=== PATIENT | male | born 1945 | race Caucasian/White ===

== ENCOUNTER 2017-03-14 07:51 | Inpatient (IN) ==
[2017-03-14] MEDS ORDERED: Ipratropium/Albuterol Neb 3 ML IH ONE (07:58)
--- NOTE | 2017-03-14 08:03 | Emergency Department Note ---
Disposition Clinical Impression: Hypoxia Pneumonia Qualifiers: Pneumonia type: due to unspecified organism Laterality: right Lung location: upper lobe of lung Qualified Code(s): J18.1 - Lobar pneumonia, unspecified organism Disposition: Admitted As Inpatient Referrals: Yun Novak MD [Primary Care Provider] - Forms: ED Satisfaction Letter Time of Disposition: 09:22 SOB HPI - General Chief Complaint: ED Shortness of Breath/Dyspnea Stated Complaint: pneumonia-ALLIE Time Seen by Provider: 03/14/17 07:58 Source: patient Mode of arrival: ambulatory Limitations: no limitations Nursing Notes Reviewed: Yes Vital Signs Reviewed: Yes - History of Present Illness 72-year-old comes with increasing shortness of breath. Patient was seen at [facility] on Thursday and diagnosed with pneumonia and started on Augmentin. Patient continues to have significant symptoms with increasing shortness of breath. Patient did have heart failure in the past related to a valve problem that was fixed at [facility] according to the patient. Pt Subjective Complaint: shortness of breath Onset (ago): day(s) Context: recent illness Severity: moderate Consistency/Duration: constant Improves with: nothing Worsens with: exertion Known history of: recurrent pneumonia Associated symptoms: Reports: fever, cough, wheezing Treatment prior to arrival: other (Antibiotics) Cough present: Yes Cough Description: Involuntary Cough Frequency: Intermittent - Related Data Home Medications Medication Instructions Recorded Confirmed Levothyroxine Sodium [Synthroid] 137 mcg PO QAM 07/31/15 03/09/17 Lisinopril [Zestril] 2.5 mg PO QAM 07/31/15 03/09/17 Magnesium Oxide [Mag-Ox] 400 mg PO TID 07/31/15 03/09/17 Solifenacin Succinate [Vesicare] 10 mg PO QAM 07/31/15 03/18/16 Tamsulosin [Flomax] 0.4 mg PO DAILY 07/31/15 03/18/16 glipiZIDE [Glucotrol] 2.5 mg PO DAILY 01/28/16 03/18/16 Eletriptan HBr [Relpax] 20 mg PO DAILY 03/18/16 03/09/17 Furosemide [Lasix] 20 mg PO DAILY 03/18/16 03/09/17 Rizatriptan Benzoate [Maxalt] 5 mg PO DAILY 03/18/16 03/09/17 Folmax 1 PO DAILY 03/09/17 Lisinopril [Zestril] 5 mg PO DAILY 03/09/17 03/09/17 Metoprolol Succinate 50 mg PO 03/09/17 Previous Rx's Medication Instructions Recorded Ticagrelor [Brilinta] 90 mg PO BID #60 tablet 03/19/16 Amoxicillin/Clavulanate [Augmentin] 875 mg PO BIDWM #20 tablet 03/09/17 Guaifenesin [Mucinex] 1,200 mg PO BID #14 tab.er.12h 03/09/17 Allergies Allergy/AdvReac Type Severity Reaction Status Date / Time Oxycodone AdvReac Mild Itching Verified 01/28/16 06:45 All systems ED: reviewed and negative except as stated. Constitutional: Denies: fever, chills, weakness, weight change Eyes: Denies: eye pain, eye discharge, vision change ENT ED: Denies: ear pain, throat pain, dental pain, hearing loss, epistaxis, congestion, dysphagia Cardiovascular: Denies: chest pain, palpitations, dyspnea on exertion, edema, syncope Respiratory: Reports: cough, dyspnea, wheezes. Denies: hemoptysis, stridor Gastrointestinal: Denies: abdominal pain, nausea, vomiting, diarrhea, constipation, hematemesis, melena, hematochezia Genitourinary: Denies: urgency, dysuria, frequency, hematuria Musculoskeletal: Denies: back pain, neck pain, arthralgia, myalgia Integumentary: Denies: rash, abrasion, lesions Neurological: Denies: headache, weakness, numbness, paresthesias, confusion, abnormal gait, vertigo Psychiatric: Denies: anxiety, depression, suicidal thoughts, homicidal thoughts , auditory hallucinations, visual hallucinations Endocrine: Denies: fatigue Hematological/Lymphatic: Denies: easy bleeding, easy bruising Allergic/Immunologic: Denies: facial swelling, urticaria Past Medical History - Past Medical History Medical history: Reports: cancer, CHF, diabetes, GERD, hepatitis, hypertension, migraine, renal disease, thyroid disease, valvular heart disease, other Surgical history: Reports: orthopedic, other Psychiatric history: Reports: anxiety, depression - Social History Smoking Status: Never smoker Smokeless Tobacco Status: No Alcohol use: Reports: none Drug use: Reports: none Physical Exam - General Limitations: no limitations General appearance: alert, in no apparent distress - Head Head exam: atraumatic, normocephalic, normal inspection - Eye Eye exam: Present: normal appearance, PERRL, EOMI - ENT ENT exam: normal exam, normal oropharynx, mucous membranes moist - Neck Neck exam: Present: normal inspection, full ROM, trachea midline - Chest Chest inspection: Present: normal inspection, symmetric chest wall rise - Respiratory Respiratory exam: Present: normal lung sounds bilaterally - Cardiovascular Cardiovascular exam: Present: regular rate, normal rhythm, normal heart sounds - Abdominal Exam Abdominal exam: Present: soft, Non-Tender. Absent: tenderness, distention, guarding, rebound, rigidity - Extremities Exam Extremities exam: Present: normal inspection, full ROM. Absent: tenderness, pedal edema - Expanded Lower Extremity Exam Neurovascular/Tendon exam: Absent: motor deficit, sensory deficit, tendon deficit Gait: observed and normal - Back Exam Back exam: Present: normal inspection, full ROM. Absent: tenderness - Neurological Exam Neurological exam: Present: alert, oriented X3 - Psychiatric Psychiatric exam: Present: normal affect, normal mood - Skin Skin exam: Present: warm, dry, intact, normal color Course - Reevaluation(s) Reevaluation #1: 72-year-old who comes in complaining of cough congestion and increasing shortness of breath. Patient was diagnosed with pneumonia several days ago and outside facility started on Augmentin. Patient states he feels no better next week feel somewhat worse. Acquiring of 3 L of oxygen to maintain a sat of 93%. The patient is not on oxygen at home. Time: 09:21 - Consultations Consultation #1: Discussed with Dr. Villasenor, admit. Time: 09:21 Vital Signs Temperature 98.6 F 03/14/17 07:53 Pulse Rate 94 03/14/17 07:53 Respiratory Rate 18 03/14/17 07:53 Blood Pressure 131/80 03/14/17 07:53 O2 Sat by Pulse Oximetry 96 03/14/17 07:53 Temperature 98.6 F 03/14/17 07:53 Pulse Rate 82 03/14/17 09:11 Respiratory Rate 18 03/14/17 09:11 Blood Pressure 116/76 03/14/17 09:11 O2 Sat by Pulse Oximetry 95 03/14/17 09:11 Oxygen Delivery Oxygen Delivery Nasal Cannula Shortness of Breath/Dyspnea - Lab Data Result diagrams: 03/14/17 08:20 03/14/17 08:20 Lab Results 03/14/17 03/14/17 03/14/17 Range/Units 08:20 08:20 08:20 WBC 8.9 (4.3-11.1) K/mcL RBC 4.50 (4.19-5.50) M/mcL Hgb 12.4 L (12.9-16.9) g/dL Hct 38.4 (37.5-50.1) % MCV 85.3 (83.0-100.0) fL MCH 27.6 L (28.0-33.3) pg MCHC 32.3 (31.6-35.5) g/dL RDW 17.2 H (11.5-14.5) % Plt Count 170 D (140-400) K/mcL MPV 10.2 (9.4-12.4) fL Immature Gran % 0.5 (0-4) % Seg Neutrophils % 60.3 % Lymphocytes % 27.4 % Monocytes % 7.7 % Eosinophils % 3.6 % Basophils % 0.5 % Neutrophils # 5.4 (1.6-8.9) K/mcL Lymphocytes # 2.4 (0.6-4.6) K/mcL Monocytes # 0.7 (0.0-1.3) K/mcL Eosinophils # 0.3 (0.0-0.6) K/mcL Basophils # 0.0 (0.0-0.2) K/mcL Sodium 139 (136-145) mEq/L Potassium 4.1 (3.5-4.5) mEq/L Chloride 105 (98-109) mEq/L Carbon Dioxide 23 (19-29) mEq/L BUN 27 H (8-26) mg/dL Creatinine 1.39 H (0.72-1.25) mg/dL Est GFR ( Amer) > 60 (> 60) Est GFR (Non-Af Amer) 50 L (> 60) BUN/Creatinine Ratio 19 (6-26) Glucose 99 (70-99) mg/dL Calculated Osmolality 293 (280-300) Lactic Acid 1.6 (0.5-2.2) mmol/L Calcium 9.8 (8.6-10.8) mg/dL Troponin I (0-0.03) ng/mL B-Natriuretic Peptide (0-100) pg/mL 03/14/17 03/14/17 Range/Units 08:20 08:20 WBC (4.3-11.1) K/mcL RBC (4.19-5.50) M/mcL Hgb (12.9-16.9) g/dL Hct (37.5-50.1) % MCV (83.0-100.0) fL MCH (28.0-33.3) pg MCHC (31.6-35.5) g/dL RDW (11.5-14.5) % Plt Count (140-400) K/mcL MPV (9.4-12.4) fL Immature Gran % (0-4) % Seg Neutrophils % % Lymphocytes % % Monocytes % % Eosinophils % % Basophils % % Neutrophils # (1.6-8.9) K/mcL Lymphocytes # (0.6-4.6) K/mcL Monocytes # (0.0-1.3) K/mcL Eosinophils # (0.0-0.6) K/mcL Basophils # (0.0-0.2) K/mcL Sodium (136-145) mEq/L Potassium (3.5-4.5) mEq/L Chloride (98-109) mEq/L Carbon Dioxide (19-29) mEq/L BUN (8-26) mg/dL Creatinine (0.72-1.25) mg/dL Est GFR ( Amer) (> 60) Est GFR (Non-Af Amer) (> 60) BUN/Creatinine Ratio (6-26) Glucose (70-99) mg/dL Calculated Osmolality (280-300) Lactic Acid (0.5-2.2) mmol/L Calcium (8.6-10.8) mg/dL Troponin I 0.01 (0-0.03) ng/mL B-Natriuretic Peptide 244 H (0-100) pg/mL - EKG Data EKG attestation: Yes I reviewed and interpreted this EKG. EKG shows normal: Reports: sinus rhythm Rate: Reports: normal Rhythm: Reports: NSR Interpretation: Reports: no acute changes
[2017-03-14 08:37] LABS: Basophils % 0.5 %; Eosinophils # 0.3 K/mcL (0.0-0.6); Eosinophils % 3.6 %; Hematocrit 38.4 % (37.5-50.1); Hemoglobin 12.4 g/dL (12.9-16.9); Immature Granulocytes % 0.5 % (0-4); Lymphocytes # 2.4 K/mcL (0.6-4.6); Lymphocytes % 27.4 %; Mean Corpuscular HGB Conc 32.3 g/dL (31.6-35.5); Mean Corpuscular Hemoglobin 27.6 pg (28.0-33.3); Mean Corpuscular Volume 85.3 fL (83.0-100.0); Mean Platelet Volume 10.2 fL (9.4-12.4); Monocytes # 0.7 K/mcL (0.0-1.3); Monocytes % 7.7 %; Neutrophils # 5.4 K/mcL (1.6-8.9); Platelet Count 170 K/mcL (140-400); Red Cell Distribution Width 17.2 % (11.5-14.5); Segmented Neutrophils % 60.3 %
[2017-03-14 08:47] LABS: BUN/Creatinine Ratio 19 (6-26); Blood Urea Nitrogen 27 mg/dL (8-26); Calcium 9.8 mg/dL (8.6-10.8); Carbon Dioxide 23 mEq/L (19-29); Chloride 105 mEq/L (98-109); Glucose 99 mg/dL (70-99); Osmolality,Calculated 293 (280-300); Potassium 4.1 mEq/L (3.5-4.5); Sodium 139 mEq/L (136-145); eGFR For African Americans > 60 (> 60); eGFR For Non-African Americans 50 (> 60)
[2017-03-14] MEDS ORDERED: Levofloxacin 750 MG/150 ML 750 MG/150 ML BAG IVPB ONE (08:50)
[2017-03-14] MEDS ORDERED: Ondansetron ODT 4 MG TAB.RAPDIS SL PRN (11:17)
[2017-03-14] MEDS ORDERED: Naloxone 0.4 MG/ML INJ IVP PRN (11:17)
--- NOTE | 2017-03-14 11:31 | Internal Med History&Physical ---
<Yehuda Villasenor - Last Filed: 03/14/17 17:58> Date of Encounter: 03/14/17 Internal Medicine - H&P: HPI History of present illness: Mr. Montiel is a 72 year old male Internal Medicine - H&P: Meds Levothyroxine Sodium [Synthroid] 137 mcg PO QAM 07/31/15 [History] Magnesium Oxide [Mag-Ox] 400 mg PO TID 07/31/15 [History] Solifenacin Succinate [Vesicare] 10 mg PO QAM 07/31/15 [History] Tamsulosin [Flomax] 0.4 mg PO DAILY 07/31/15 [History] Eletriptan HBr [Relpax] 20 mg PO DAILY PRN 03/18/16 [History] Furosemide [Lasix] 40 mg PO DAILY 03/18/16 [History] Lisinopril [Zestril] 5 mg PO DAILY 03/09/17 [History] Allopurinol [Zyloprim 300 MG] 300 mg PO DAILY 03/14/17 [History] Atorvastatin [Lipitor] 40 mg PO DAILY 03/14/17 [History] Clopidogrel [Plavix] 75 mg PO DAILY 03/14/17 [History] Metoprolol XL (24 HR) Succ [Toprol Xl] 75 mg PO QAM 03/14/17 [History] Omeprazole [PriLOSEC] 40 mg PO DAILY 03/14/17 [History] Allergies Oxycodone Adverse Reaction (Mild, Verified 03/14/17 09:35) Itching rash/ but states he is not sure that is what caused it All Systems PM: A 10-system review of systems was performed and is negative for pertinent findings except as documented above in the HPI. - Constitutional Vitals: Temp Pulse Resp BP Pulse Ox 98.6 F 84 16 109/70 96 03/14/17 15:11 03/14/17 15:11 03/14/17 16:10 03/14/17 15:11 03/14/17 16:10 Internal Med - H&P Results - Labs CBC & Chem 7: 03/14/17 08:20 03/14/17 08:20 - Attending Attestation I examined this patient and my medical decision-making was reviewed with the Advanced Practice Nurse. I agree with the documented findings, disposition and treatment plan as described except to the extent set forth below. We will obtain urine Legionella and pneumococcal antigens. Follow-up urine cultures. We will treat the patient with ceftriaxone and azithromycin. He will need follow-up with PCP and Pneumovax 13. <Katie Niño - Last Filed: 03/14/17 21:53> Date of Encounter: 03/14/17 Time of Encounter: 11:28 Assessment and Plan (1) Pneumonia Current visit: Yes Status: Acute Patient with shortness of breath and productive cough. He was diagnosed with pneumonia on Thursday in [place] and sent home on Augmentin, but symptoms persisted. He is now hypoxic, requiring 3L to maintain saturations. CXR shows stable right upper lobe infiltrate. WBC is normal and he is afebrile. Blood cultures drawn and sent. Sputum culture ordered. Azithromycin and Ceftriaxone IVPB duoneb treatments QID mucinex BID titrate oxygen to maintain saturation > 92% Qualifiers: Pneumonia type: due to unspecified organism Laterality: right Lung location: upper lobe of lung Qualified Code(s): J18.1 - Lobar pneumonia, unspecified organism (2) Hypoxia Current visit: No Status: Acute Patient presents with shortness of breath, diagnosed with pneumonia. He does not wear oxygen at home and is now requiring 3L to maintain saturation. titrate oxygen to maintain O2 saturation > 92% duoneb treatments QID (3) CKD (chronic kidney disease) stage 3, GFR 30-59 ml/min Current visit: No Status: Acute Patient with chronic kidney disease. Today's creatinine of 1.39 is consistent with his baseline. Will check chemistry daily. (4) Sleep apnea Current visit: No Status: Acute Respiratory therapy consulted for CPAP overnight. Qualifiers: Sleep apnea type: unspecified type Qualified Code(s): G47.30 - Sleep apnea , unspecified (5) Hypertension Current visit: No Status: Chronic Blood pressure well controlled since arrival. Continue home doses of lisinopril and metoprolol. Qualifiers: Hypertension type: essential hypertension Qualified Code(s): I10 - Essential (primary) hypertension (6) CAD (coronary artery disease) Current visit: No Status: Acute Patient had stent placed about 1 year ago. Continue plavix, metoprolol, atorvastatin. Qualifiers: Coronary Disease-Associated Artery/Lesion type: [place] artery [place] vs. transplanted heart: [place] heart Associated angina: angina presence unspecified Qualified Code(s): I25.10 - Atherosclerotic heart disease of [place] coronary artery without angina pectoris (7) CHF (congestive heart failure) Current visit: Yes Status: Chronic Patient with history of CHF. He is euvolemic today. Continue home dose of lasix. Qualifiers: Congestive heart failure type: diastolic Congestive heart failure chronicity: chronic Qualified Code(s): I50.32 - Chronic diastolic (congestive ) heart failure (8) DVT prophylaxis Current visit: No Status: Acute anti-embolic stockings heparin 5000u SQ daily Internal Medicine - H&P: HPI Chief complaint: shortness of breath Admitted From: Emergency Dept Plans for Post Hospital Care: Home History of present illness: Mr. Montiel is a 72 year old male with hypertension, chronic kidney disease, coronary artery disease status post stent placement, congestive heart failure, sleep apnea, borderline diabetes who presents to the emergency department today with complaints of shortness of breath. Patient noted productive cough and shortness of breath which began last . He has had chills, sweats, body aches, pain on the right side of his chest with coughing and poor appetite developing since that time. Patient presented to [place] on Thursday was diagnosed with pneumonia and given a prescription for Augmentin. Patient reports he continues to feel short of breath, has not felt any better, and shortness of breath is getting worse. Patient is requiring 3 L of oxygen to maintain saturation above 92%, he does not normally wear oxygen at home. Evaluation in the emergency department included a chest x-ray which showed stable right upper lobe infiltrate. White blood cell count was normal at 8.9. Creatinine of 1.39 was consistent with his baseline and chronic kidney disease. BNP was elevated at 244, however lower than previous results. Troponin was normal at 0.01. On exam, patient alert and oriented, in no acute distress. Heart had regular rate and rhythm. Lungs with right upper chest rales. Patient was mildly diaphoretic. Peripheral pulses intact, no peripheral edema. Past Med Surg Social Fam HX - Past Medical History Medical history: cancer (skin), CHF, diabetes, GERD, hepatitis, hypertension, migraine, renal disease, thyroid disease, valvular heart disease, other Psychiatric history: anxiety, depression - Past Surgical History Surgical History: angioplasty/stent, orthopedic, other, other (mitral valve repair) - Social History Smoking Status: Never smoker Smokeless Tobacco Status: No Alcohol use: none Drug use: none - Family History Mother Adopted: No Family Member Ethnicity: Non- Living Status: Age at : 75 Cause of : DC Hx Family Cardiac Disorders: Yes Hx Family Respiratory Disorders: No Hx Family Cancer: No Hx Family GI Disorders: No Hx Family Endocrine Disorder: No Hx Family Neuromuscular Disorders: No Hx Family Neurologic Disorders: No Hx Family HEENT Disorders: No Hx Family Autoimmune Disorders: No Father Living Status: Hx Family Cancer: Yes All Systems PM: A 10-system review of systems was performed and is negative for pertinent findings except as documented above in the HPI. - Constitutional Constitutional: anorexia, chills, fever(s), no night sweats - EENT Eyes: no change in vision, no discharge, no pain, no photophobia Ears: no ear discharge, no ear pain, no tinnitus Nose, mouth and throat: no dysphagia, no nasal discharge, no neck pain, no sore throat - Cardiovascular Cardiovascular ROS IM: diaphoresis, dyspnea, dyspnea on exertion, lightheadedness, no chest pain, no palpitations, no syncope - Respiratory Respiratory: cough, dyspnea, dyspnea on exertion, excessive phlegm production, pain with cough, no wheezing - Gastrointestinal Gastrointestinal: no abdominal pain, no diarrhea, no hematemesis, no hematochezia, no melena, no nausea, no vomiting - Musculoskeletal Musculoskeletal ROS IM: no numbness, no tingling - Integumentary Integumentary IM: no rash, no unusual bruising - Neurological Neurological ROS: no confusion, no convulsions, no focal weakness, no numbness, no tingling, no tremor(s) - Hematologic/Lymphatic Hematologic/Lymphatic: no easy bruising - Constitutional Vitals: Temp Pulse Resp BP Pulse Ox 98.6 F 82 18 125/63 96 03/14/17 07:53 03/14/17 10:23 03/14/17 10:23 03/14/17 10:23 03/14/17 10:23 General appearance: Present: A&O X 3, pleasant, no acute distress - Head Head exam: Present: atraumatic, normocephalic - Eye Eye exam: Present: PERRL, conjuntiva pink, sclera anicteric Pupils: Present: PERRL - Neck Neck exam general surgery: Present: supple, trachea midline. Absent: lymphadenopathy - Respiratory Respiratory exam: Present: rales (right upper chest). Absent: accessory muscle use, rhonchi, wheezes - Cardiovascular Cardiovascular exam: Present: RRR, +S1, +S2. Absent: diastolic murmur, gallop, rubs, systolic murmur - GI/Abdominal GI/Abdominal exam: Present: normal bowel sounds, soft, no peritoneal signs. Absent: distended, tenderness - Extremities Exam Extremities exam: Present: warm, radial pulses palpable and symetrical. Absent : calf tenderness, cyanotic, pedal edema - Neurological Exam Neurological exam: Present: CN II-XII intact, oriented X3, no focal deficits. Absent: facial droop, speech deficit - Skin Skin exam: Present: diaphoretic, intact Internal Med - H&P Results - Labs CBC & Chem 7: 03/14/17 08:20 03/14/17 08:20 Labs: All Lab Results (24 Hours) 03/14/17 03/14/17 03/14/17 Range/Units 08:20 08:20 08:20 WBC 8.9 (4.3-11.1) K/mcL RBC 4.50 (4.19-5.50) M/mcL Hgb 12.4 L (12.9-16.9) g/dL Hct 38.4 (37.5-50.1) % MCV 85.3 (83.0-100.0) fL MCH 27.6 L (28.0-33.3) pg MCHC 32.3 (31.6-35.5) g/dL RDW 17.2 H (11.5-14.5) % Plt Count 170 D (140-400) K/mcL MPV 10.2 (9.4-12.4) fL Immature Gran % 0.5 (0-4) % Seg Neutrophils % 60.3 % Lymphocytes % 27.4 % Monocytes % 7.7 % Eosinophils % 3.6 % Basophils % 0.5 % Neutrophils # 5.4 (1.6-8.9) K/mcL Lymphocytes # 2.4 (0.6-4.6) K/mcL Monocytes # 0.7 (0.0-1.3) K/mcL Eosinophils # 0.3 (0.0-0.6) K/mcL Basophils # 0.0 (0.0-0.2) K/mcL Sodium 139 (136-145) mEq/L Potassium 4.1 (3.5-4.5) mEq/L Chloride 105 (98-109) mEq/L Carbon Dioxide 23 (19-29) mEq/L BUN 27 H (8-26) mg/dL Creatinine 1.39 H (0.72-1.25) mg/dL Est GFR ( Amer) > 60 (> 60) Est GFR (Non-Af Amer) 50 L (> 60) BUN/Creatinine Ratio 19 (6-26) Glucose 99 (70-99) mg/dL Calculated Osmolality 293 (280-300) Lactic Acid 1.6 (0.5-2.2) mmol/L Calcium 9.8 (8.6-10.8) mg/dL Troponin I (0-0.03) ng/mL B-Natriuretic Peptide (0-100) pg/mL 03/14/17 03/14/17 Range/Units 08:20 08:20 WBC (4.3-11.1) K/mcL RBC (4.19-5.50) M/mcL Hgb (12.9-16.9) g/dL Hct (37.5-50.1) % MCV (83.0-100.0) fL MCH (28.0-33.3) pg MCHC (31.6-35.5) g/dL RDW (11.5-14.5) % Plt Count (140-400) K/mcL MPV (9.4-12.4) fL Immature Gran % (0-4) % Seg Neutrophils % % Lymphocytes % % Monocytes % % Eosinophils % % Basophils % % Neutrophils # (1.6-8.9) K/mcL Lymphocytes # (0.6-4.6) K/mcL Monocytes # (0.0-1.3) K/mcL Eosinophils # (0.0-0.6) K/mcL Basophils # (0.0-0.2) K/mcL Sodium (136-145) mEq/L Potassium (3.5-4.5) mEq/L Chloride (98-109) mEq/L Carbon Dioxide (19-29) mEq/L BUN (8-26) mg/dL Creatinine (0.72-1.25) mg/dL Est GFR ( Amer) (> 60) Est GFR (Non-Af Amer) (> 60) BUN/Creatinine Ratio (6-26) Glucose (70-99) mg/dL Calculated Osmolality (280-300) Lactic Acid (0.5-2.2) mmol/L Calcium (8.6-10.8) mg/dL Troponin I 0.01 (0-0.03) ng/mL B-Natriuretic Peptide 244 H (0-100) pg/mL - Diagnostic Studies Chest x-ray Additional comments: Chest X-Ray 03/14/17 07:58 IMPRESSION: Stable chest. No interval change in right upper lobe infiltrate. D/ / Darien Mistry MD / Darien Mistry MD Interpreting Provider: Darien Mistry MD
[2017-03-14] MEDS: Magnesium Oxide 400 MG TABLET PO SCH ×2 (14:03→20:41)
[2017-03-14] MEDS: Acetaminophen 325 MG TABLET PO PRN ×2 (14:03→20:40)
[2017-03-14] MEDS: *HR* Heparin 5,000 UNIT/ML VIAL SQ SCH (15:03)
[2017-03-14] MEDS: Azithromycin 500 MG in D5% in Water 250 ML IVPB SCH (15:03)
[2017-03-14] MEDS: Ipratropium/Albuterol Neb 3 ML IH SCH ×2 (16:08→23:25)
[2017-03-15 03:37] LABS: Basophils % 0.4 %; Eosinophils # 0.2 K/mcL (0.0-0.6); Eosinophils % 2.9 %; Hematocrit 37.5 % (37.5-50.1); Immature Granulocytes % 0.8 % (0-4); Lymphocytes # 2.9 K/mcL (0.6-4.6); Lymphocytes % 34.9 %; Mean Corpuscular Hemoglobin 27.6 pg (28.0-33.3); Mean Corpuscular Volume 86.4 fL (83.0-100.0); Mean Platelet Volume 10.3 fL (9.4-12.4); Monocytes # 0.8 K/mcL (0.0-1.3); Monocytes % 9.4 %; Neutrophils # 4.3 K/mcL (1.6-8.9); Platelet Count 180 K/mcL (140-400); Red Blood Count 4.34 M/mcL (4.19-5.50); Red Cell Distribution Width 17.2 % (11.5-14.5); Segmented Neutrophils % 51.6 %
[2017-03-15 03:55] LABS: Calcium 9.9 mg/dL (8.6-10.8); Potassium 4.5 mEq/L (3.5-4.5)
[2017-03-15] MEDS: Ipratropium/Albuterol Neb 3 ML IH SCH ×4 (04:19→22:07)
[2017-03-15] MEDS: *HR* Heparin 5,000 UNIT/ML VIAL SQ SCH ×3 (05:21→15:43)
[2017-03-15] MEDS: Metoprolol XL (24 HR) Succ 50 MG TAB.ER.24H PO SCH (08:02)
[2017-03-15] MEDS: Furosemide 40 MG TABLET PO SCH (08:03)
[2017-03-15] MEDS: Magnesium Oxide 400 MG TABLET PO SCH ×3 (08:03→20:51)
[2017-03-15] MEDS ORDERED: Levofloxacin 750 MG/150 ML 750 MG/150 ML BAG IVPB SCH (09:00)
--- NOTE | 2017-03-15 09:22 | Internal Med Progress Note ---
Date of Encounter: 03/15/17 Time of Encounter: 09:20 - Assessment and plan (1) Acute respiratory failure with hypoxia Current Visit: Yes Status: Acute Assessment and plan: Improving with O2 by NC, continue same (2) Pneumonia Current Visit: Yes Status: Acute Assessment and plan: failed out-patient therapy Contiune Ceftriaxone IV and Azithromycin-day 2 Sputum culture has been orderd, will follow Follow urine Legionella and Step Antigen Qualifiers: Pneumonia type: due to unspecified organism Laterality: right Lung location: upper lobe of lung Qualified Code(s): J18.1 - Lobar pneumonia, unspecified organism (3) CHF (congestive heart failure) Current Visit: Yes Status: Chronic Assessment and plan: Euvolemic on exam, continue home meds Qualifiers: Congestive heart failure type: diastolic Congestive heart failure chronicity: chronic Qualified Code(s): I50.32 - Chronic diastolic (congestive ) heart failure (4) CKD (chronic kidney disease) stage 3, GFR 30-59 ml/min Current Visit: Yes Status: Chronic Assessment and plan: CR and GFR stable and at baseline (5) Sleep apnea Current Visit: Yes Status: Chronic Assessment and plan: Ensure CPAP at night Qualifiers: Sleep apnea type: unspecified type Qualified Code(s): G47.30 - Sleep apnea , unspecified (6) Hypertension Current Visit: Yes Status: Chronic Assessment and plan: Controlled on current medications, continue same Qualifiers: Hypertension type: essential hypertension Qualified Code(s): I10 - Essential (primary) hypertension (7) Hypothyroid Current Visit: Yes Status: Chronic Assessment and plan: Continue home dose of levoiothyroxine Clinically euthyroid Qualifiers: Hypothyroidism type: unspecified Qualified Code(s): E03.9 - Hypothyroidism , unspecified (8) CAD (coronary artery disease) Current Visit: Yes Status: Chronic Assessment and plan: s/p [facility] with stent 12/2015, continue home meds Qualifiers: Coronary Disease-Associated Artery/Lesion type: [place] artery [place] vs. transplanted heart: [place] heart Associated angina: angina presence unspecified Qualified Code(s): I25.10 - Atherosclerotic heart disease of [place] coronary artery without angina pectoris - Subjective Interval history: 72 M with PMH of CAD s/p DIAMOND 2015, CHF, Severe MVR s/p clipping 2016, Pulm HTN, CKD, GREG Admitted and being managed for Pneumonia, Acute hypoxic respiratory failure Seen and evaluated at bedside, sitting up in bed, no new complains - Constitutional Vitals: Temp Pulse Resp BP Pulse Ox 98.7 F 86 16 128/75 94 03/15/17 07:08 03/15/17 07:08 03/15/17 07:08 03/15/17 07:08 03/15/17 07:08 General appearance: Present: A&O X 3, pleasant, no acute distress - Head Head exam: Present: atraumatic, normocephalic - Eye Eye exam: Present: PERRL, conjuntiva pink, sclera anicteric Pupils: Present: PERRL - Neck Neck exam general surgery: Present: supple, trachea midline. Absent: lymphadenopathy - Respiratory Respiratory exam: Present: CTAB. Absent: accessory muscle use, rales, rhonchi, wheezes - Cardiovascular Cardiovascular exam: Present: RRR, +S1, +S2. Absent: diastolic murmur, gallop, rubs, systolic murmur - GI/Abdominal GI/Abdominal exam: Present: normal bowel sounds, soft, no peritoneal signs. Absent: distended, tenderness - Extremities Exam Extremities exam: Present: warm, radial pulses palpable and symetrical. Absent : calf tenderness, cyanotic, pedal edema - Neurological Exam Neurological exam: Present: alert, CN II-XII intact, oriented X3, no focal deficits. Absent: pronater drift, facial droop, speech deficit - Skin Skin exam: Present: dry, intact Internal Medicine: Result - Labs CBC & Chem 7: 03/15/17 03:01 03/15/17 03:01 Labs: Short CBC 03/15/17 Range/Units 03:01 WBC 8.3 (4.3-11.1) K/mcL Hgb 12.0 L (12.9-16.9) g/dL Hct 37.5 (37.5-50.1) % Plt Count 180 (140-400) K/mcL Neutrophils # 4.3 (1.6-8.9) K/mcL BMP 03/15/17 03:01 Sodium 140 Potassium 4.5 Chloride 104 Carbon Dioxide 25 BUN 27 H Creatinine 1.46 H Glucose 97 Calcium 9.9 - VTE Documentation of Mechanical Device: Graduated compression elastic hosiery Consult Discharge Plan - Plan Referrals: Yun Novak MD [Primary Care Provider] -
[2017-03-15] MEDS: Acetaminophen 325 MG TABLET PO PRN ×2 (11:57→20:55)
[2017-03-15] MEDS: Azithromycin 500 MG in D5% in Water 250 ML IVPB SCH (12:34)
[2017-03-15 15:00] LABS: Bilirubin,Urine Negative (Negative); Blood,Urine Negative (Negative); Clarity,Urine Clear (Clear); Color,Urine Yellow (Yellow); Glucose,Urine (UA) Normal (Normal); Ketones,Urine Negative (Negative); Leukocyte Esterase,Urine Negative (Negative); Nitrite,Urine Negative (Negative); PH,Urine 5.5 pH Units (5.0-8.0); Protein,Urine Negative (Neg-Trace); Specific Gravity,Urine 1.018 (1.010-1.025); Urobilinogen,Urine Normal (Normal)
[2017-03-16] MEDS: *HR* Heparin 5,000 UNIT/ML VIAL SQ SCH ×3 (02:06→15:57)
[2017-03-16] MEDS: Ipratropium/Albuterol Neb 3 ML IH SCH ×4 (03:54→22:34)
[2017-03-16 06:11] LABS: BUN/Creatinine Ratio 22 (6-26); Blood Urea Nitrogen 29 mg/dL (8-26); Carbon Dioxide 22 mEq/L (19-29); Chloride 105 mEq/L (98-109); Glucose 109 mg/dL (70-99); Osmolality,Calculated 294 (280-300); Potassium 4.4 mEq/L (3.5-4.5); Sodium 139 mEq/L (136-145); eGFR For African Americans > 60 (> 60); eGFR For Non-African Americans 52 (> 60)
[2017-03-16 07:24] LABS: Basophils % 0.4 %; Eosinophils # 0.2 K/mcL (0.0-0.6); Eosinophils % 2.8 %; Hemoglobin 11.6 g/dL (12.9-16.9); Immature Granulocytes % 0.6 % (0-4); Immature Platelets 2.1 % (1.1-6.1); Lymphocytes # 2.7 K/mcL (0.6-4.6); Lymphocytes % 34.9 %; Mean Corpuscular HGB Conc 32.2 g/dL (31.6-35.5); Mean Corpuscular Hemoglobin 27.6 pg (28.0-33.3); Mean Corpuscular Volume 85.5 fL (83.0-100.0); Mean Platelet Volume 10.6 fL (9.4-12.4); Monocytes # 0.6 K/mcL (0.0-1.3); Monocytes % 7.1 %; Neutrophils # 4.3 K/mcL (1.6-8.9); Platelet Count 197 K/mcL (140-400); Red Blood Count 4.21 M/mcL (4.19-5.50); Red Cell Distribution Width 17.3 % (11.5-14.5); Segmented Neutrophils % 54.2 %
[2017-03-16] MEDS: Metoprolol XL (24 HR) Succ 50 MG TAB.ER.24H PO SCH (08:07)
[2017-03-16] MEDS: Magnesium Oxide 400 MG TABLET PO SCH ×3 (08:07→20:41)
[2017-03-16] MEDS: Furosemide 40 MG TABLET PO SCH (08:07)
--- NOTE | 2017-03-16 10:46 | Discharge Summary ---
Date of Encounter: 03/16/17 Time of Encounter: 10:46 - Discharge Diagnosis (1) Acute respiratory failure with hypoxia Status: Acute (2) Pneumonia Status: Acute Qualifiers: Pneumonia type: due to unspecified organism Laterality: right Lung location: upper lobe of lung Qualified Code(s): J18.1 - Lobar pneumonia, unspecified organism (3) CHF (congestive heart failure) Status: Chronic Qualifiers: Congestive heart failure type: diastolic Congestive heart failure chronicity: chronic Qualified Code(s): I50.32 - Chronic diastolic (congestive ) heart failure (4) CKD (chronic kidney disease) stage 3, GFR 30-59 ml/min Status: Chronic (5) Sleep apnea Status: Chronic Qualifiers: Sleep apnea type: unspecified type Qualified Code(s): G47.30 - Sleep apnea , unspecified (6) Hypertension Status: Chronic Qualifiers: Hypertension type: essential hypertension Qualified Code(s): I10 - Essential (primary) hypertension (7) Hypothyroid Status: Chronic Qualifiers: Hypothyroidism type: unspecified Qualified Code(s): E03.9 - Hypothyroidism , unspecified (8) CAD (coronary artery disease) Status: Chronic Qualifiers: Coronary Disease-Associated Artery/Lesion type: [place] artery [place] vs. transplanted heart: [place] heart Associated angina: angina presence unspecified Qualified Code(s): I25.10 - Atherosclerotic heart disease of [place] coronary artery without angina pectoris - Discharge Medications Home Medications: Levothyroxine Sodium [Synthroid] 137 mcg PO QAM 07/31/15 [History] Magnesium Oxide [Mag-Ox] 400 mg PO TID 07/31/15 [History] Solifenacin Succinate [Vesicare] 10 mg PO QAM 07/31/15 [History] Tamsulosin [Flomax] 0.4 mg PO DAILY 07/31/15 [History] Eletriptan HBr [Relpax] 20 mg PO DAILY PRN 03/18/16 [History] Furosemide [Lasix] 40 mg PO DAILY 03/18/16 [History] Lisinopril [Zestril] 5 mg PO DAILY 03/09/17 [History] Allopurinol [Zyloprim 300 MG] 300 mg PO DAILY 03/14/17 [History] Atorvastatin [Lipitor] 40 mg PO DAILY 03/14/17 [History] Clopidogrel [Plavix] 75 mg PO DAILY 03/14/17 [History] Metoprolol XL (24 HR) Succ [Toprol Xl] 75 mg PO QAM 03/14/17 [History] Omeprazole [PriLOSEC] 40 mg PO DAILY 03/14/17 [History] Allergies/Adverse Reactions: Allergies Oxycodone Adverse Reaction (Mild, Verified 03/14/17 09:35) Itching rash/ but states he is not sure that is what caused it Date of admission: 03/14/17 11:17 Primary care physician: Yun Novak, Consults: 03/14/17 13:51 Consult to Nutrition [CONS] Routine Comment: Consulting Provider: NUTRITION Reason for Dietary Consult: Other Other:: weight loss - Discharge Instructions Follow Up With: Yun Novak MD [Primary Care Provider] - 03/23/17 9:20 am (Please follow up as schedule...) Hospital course: Mr. Montiel is a 72 year old male - Time Spent with Patient Total time spent providing and/or coordinating discharge services: - Constitutional Vitals: Temp Pulse Resp BP Pulse Ox 98.5 F 87 16 113/71 97 03/16/17 06:49 03/16/17 06:49 03/16/17 06:49 03/16/17 06:49 03/16/17 06:49 General appearance: Present: A&O X 3, pleasant, no acute distress - Head Head exam: Present: atraumatic, normocephalic - Eye Eye exam: Present: PERRL, conjuntiva pink, sclera anicteric Pupils: Present: PERRL - Neck Neck exam general surgery: Present: supple, trachea midline. Absent: lymphadenopathy - Respiratory Respiratory exam: Present: CTAB. Absent: accessory muscle use, rales, rhonchi, wheezes - Cardiovascular Cardiovascular exam: Present: RRR, +S1, +S2. Absent: diastolic murmur, gallop, rubs, systolic murmur - GI/Abdominal GI/Abdominal exam: Present: normal bowel sounds, soft, no peritoneal signs. Absent: distended, tenderness - Extremities Exam Extremities exam: Present: warm, radial pulses palpable and symetrical. Absent : calf tenderness, cyanotic, pedal edema - Neurological Exam Neurological exam: Present: alert, CN II-XII intact, oriented X3, no focal deficits. Absent: pronater drift, facial droop, speech deficit - Skin Skin exam: Present: dry, intact - VTE Documentation of Mechanical Device: Graduated compression elastic hosiery
--- NOTE | 2017-03-16 11:30 | Internal Med Progress Note ---
Date of Encounter: 03/16/17 Time of Encounter: 11:28 - Assessment and plan (1) Acute respiratory failure with hypoxia Current Visit: Yes Status: Acute Assessment and plan: Improving with O2 by NC, continue same (2) Pneumonia Current Visit: Yes Status: Acute Assessment and plan: failed out-patient therapy Contiune Ceftriaxone IV and Azithromycin-day 3 Sputum culture no growth Blood culture prelim negative Patient feels he is not at his baseline, continue IV antibiotics Qualifiers: Pneumonia type: due to unspecified organism Laterality: right Lung location: upper lobe of lung Qualified Code(s): J18.1 - Lobar pneumonia, unspecified organism (3) CHF (congestive heart failure) Current Visit: Yes Status: Chronic Assessment and plan: Euvolemic on exam, continue home meds Qualifiers: Congestive heart failure type: diastolic Congestive heart failure chronicity: chronic Qualified Code(s): I50.32 - Chronic diastolic (congestive ) heart failure (4) CKD (chronic kidney disease) stage 3, GFR 30-59 ml/min Current Visit: Yes Status: Chronic Assessment and plan: CR and GFR stable and at baseline (5) Sleep apnea Current Visit: Yes Status: Chronic Assessment and plan: Ensure CPAP at night Qualifiers: Sleep apnea type: unspecified type Qualified Code(s): G47.30 - Sleep apnea , unspecified (6) Hypertension Current Visit: Yes Status: Chronic Assessment and plan: Controlled on current medications, continue same Qualifiers: Hypertension type: essential hypertension Qualified Code(s): I10 - Essential (primary) hypertension (7) Hypothyroid Current Visit: Yes Status: Chronic Assessment and plan: Continue home dose of levoiothyroxine Clinically euthyroid Qualifiers: Hypothyroidism type: unspecified Qualified Code(s): E03.9 - Hypothyroidism , unspecified (8) CAD (coronary artery disease) Current Visit: Yes Status: Chronic Assessment and plan: s/p [facility] with stent 12/2015, continue home meds Qualifiers: Coronary Disease-Associated Artery/Lesion type: [place] artery [place] vs. transplanted heart: [place] heart Associated angina: angina presence unspecified Qualified Code(s): I25.10 - Atherosclerotic heart disease of [place] coronary artery without angina pectoris - Subjective Interval history: 72 M with PMH of CAD s/p DIAMOND 2015, CHF, Severe MVR s/p clipping 2015, Pulm HTN, CKD, GREG Admitted and being managed for Pneumonia, Acute hypoxic respiratory failure Seen and evaluated at bedside, sitting up in bed, no new complains He is worried his O2 sat has been dropping with exertion when he takes off the oxygen Reassured about need for qualification for O2 Sputum culture is negative Blood culture is preliminary negative he is in no form of respiratory distress at rest He needs home O2 qualification prior to discharge - Constitutional Vitals: Temp Pulse Resp BP Pulse Ox 98.5 F 87 16 113/71 97 03/16/17 06:49 03/16/17 06:49 03/16/17 06:49 03/16/17 06:49 03/16/17 06:49 General appearance: Present: A&O X 3, pleasant, no acute distress - Head Head exam: Present: atraumatic, normocephalic - Eye Eye exam: Present: PERRL, conjuntiva pink, sclera anicteric Pupils: Present: PERRL - Neck Neck exam general surgery: Present: supple, trachea midline. Absent: lymphadenopathy - Respiratory Respiratory exam: Present: CTAB. Absent: accessory muscle use, rales, rhonchi, wheezes - Cardiovascular Cardiovascular exam: Present: RRR, +S1, +S2. Absent: diastolic murmur, gallop, rubs, systolic murmur - GI/Abdominal GI/Abdominal exam: Present: normal bowel sounds, soft, no peritoneal signs. Absent: distended, tenderness - Extremities Exam Extremities exam: Present: warm, radial pulses palpable and symetrical. Absent : calf tenderness, cyanotic, pedal edema - Neurological Exam Neurological exam: Present: alert, CN II-XII intact, oriented X3, no focal deficits. Absent: pronater drift, facial droop, speech deficit - Skin Skin exam: Present: dry, intact Internal Medicine: Result - Labs CBC & Chem 7: 03/16/17 06:47 03/16/17 05:24 Labs: Short CBC 03/16/17 Range/Units 06:47 WBC 7.9 (4.3-11.1) K/mcL Hgb 11.6 L (12.9-16.9) g/dL Hct 36.0 L (37.5-50.1) % Plt Count 197 (140-400) K/mcL Neutrophils # 4.3 (1.6-8.9) K/mcL BMP 03/16/17 05:24 Sodium 139 Potassium 4.4 Chloride 105 Carbon Dioxide 22 BUN 29 H Creatinine 1.34 H Glucose 109 H Calcium 10.0 Urine 03/15/17 Range/Units 14:30 Urine Color Yellow (Yellow) Urine Clarity Clear (Clear) Urine pH 5.5 (5.0-8.0) pH Units Ur Specific [place] 1.018 (1.010-1.025) Urine Protein Negative (Neg-Trace) mg/dL Urine Glucose (UA) Normal (Normal) mg/dL - VTE Documentation of Mechanical Device: Graduated compression elastic hosiery Consult Discharge Plan - Plan Referrals: Yun Novak MD [Primary Care Provider] - 03/23/17 9:20 am (Please follow up as schedule...) Prescriptions: Azithromycin [Zithromax Tri-Edgar] 500 mg PO DAILY #2 tablet Cefdinir [Omnicef] 300 mg PO BID #8 capsule
[2017-03-16] MEDS: Acetaminophen 325 MG TABLET PO PRN (13:03)
[2017-03-16] MEDS: Azithromycin 500 MG in D5% in Water 250 ML IVPB SCH (13:04)
--- NOTE | 2017-03-16 16:36 | Electrocardiograph Report ---
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
[2017-03-17] MEDS: *HR* Heparin 5,000 UNIT/ML VIAL SQ SCH ×3 (00:46→15:00)
[2017-03-17] MEDS: Ipratropium/Albuterol Neb 3 ML IH SCH ×4 (05:00→22:29)
[2017-03-17] MEDS: Magnesium Oxide 400 MG TABLET PO SCH ×3 (08:13→21:58)
[2017-03-17] MEDS: Furosemide 40 MG TABLET PO SCH (08:13)
[2017-03-17] MEDS: Metoprolol XL (24 HR) Succ 50 MG TAB.ER.24H PO SCH (08:14)
[2017-03-17] MEDS: Azithromycin 250 MG TABLET PO SCH (12:52)
--- NOTE | 2017-03-17 17:02 | Internal Med Progress Note ---
Date of Encounter: 03/17/17 Time of Encounter: 10:00 - Assessment and plan (1) CHF (congestive heart failure) Current Visit: Yes Status: Chronic Assessment and plan: Euvolemic on exam, continue home meds Qualifiers: Congestive heart failure type: diastolic Congestive heart failure chronicity: chronic Qualified Code(s): I50.32 - Chronic diastolic (congestive ) heart failure (2) CKD (chronic kidney disease) stage 3, GFR 30-59 ml/min Current Visit: Yes Status: Chronic Assessment and plan: CR and GFR stable and at baseline (3) Sleep apnea Current Visit: Yes Status: Chronic Assessment and plan: Ensure CPAP at night Qualifiers: Sleep apnea type: unspecified type Qualified Code(s): G47.30 - Sleep apnea , unspecified (4) Hypertension Current Visit: Yes Status: Chronic Assessment and plan: Controlled on current medications, continue same Qualifiers: Hypertension type: essential hypertension Qualified Code(s): I10 - Essential (primary) hypertension (5) DVT prophylaxis Current Visit: No Status: Acute Assessment and plan: Heparin subcutaneously (6) Hypothyroid Current Visit: Yes Status: Chronic Assessment and plan: Continue home dose of levoiothyroxine Clinically euthyroid Qualifiers: Hypothyroidism type: unspecified Qualified Code(s): E03.9 - Hypothyroidism , unspecified (7) Pneumonia Current Visit: Yes Status: Acute Assessment and plan: Clinically improved. Continue IV azithromycin and Rocephin. Continue supportive treatment. Qualifiers: Pneumonia type: due to unspecified organism Laterality: right Lung location: upper lobe of lung Qualified Code(s): J18.1 - Lobar pneumonia, unspecified organism (8) CAD (coronary artery disease) Current Visit: Yes Status: Chronic Assessment and plan: s/p [facility] with stent 12/2015, continue home meds Qualifiers: Coronary Disease-Associated Artery/Lesion type: [place] artery [place] vs. transplanted heart: [place] heart Associated angina: angina presence unspecified Qualified Code(s): I25.10 - Atherosclerotic heart disease of [place] coronary artery without angina pectoris - Time Spent With Patient 25 - 35 minutes - Subjective Interval history: Patient is a 72-year-old male admitted for community-acquired pneumonia. His past medical history is significant for CHF, diabetes, hypertension, CKD. Patient was seen and examined. He is still weak, mild cough. Denies shortness of breath or chest pain. Vitals are stable. Need oxygen to maintain oxygen saturation. Will continue IV antibiotic. Plan to switch antibiotic to by mouth and discharge patient home tomorrow - Constitutional Vitals: Temp Pulse Resp BP Pulse Ox 98.4 F 82 15 96/61 92 03/17/17 15:10 03/17/17 15:10 03/17/17 15:10 03/17/17 15:10 03/17/17 15:10 General appearance: Present: A&O X 3, pleasant, no acute distress - Head Head exam: Present: atraumatic, normocephalic - Eye Eye exam: Present: PERRL, conjuntiva pink, sclera anicteric Pupils: Present: PERRL - Neck Neck exam general surgery: Present: supple, trachea midline. Absent: lymphadenopathy - Respiratory Respiratory exam: Present: CTAB. Absent: accessory muscle use, rales, rhonchi, wheezes - Cardiovascular Cardiovascular exam: Present: RRR, +S1, +S2. Absent: diastolic murmur, gallop, rubs, systolic murmur - GI/Abdominal GI/Abdominal exam: Present: normal bowel sounds, soft, no peritoneal signs. Absent: distended, tenderness - Extremities Exam Extremities exam: Present: warm, radial pulses palpable and symetrical. Absent : calf tenderness, cyanotic, pedal edema - Neurological Exam Neurological exam: Present: CN II-XII intact, oriented X3, no focal deficits. Absent: pronater drift, facial droop, speech deficit - Skin Skin exam: Present: dry, intact Internal Medicine: Result - Labs CBC & Chem 7: 03/16/17 06:47 03/16/17 05:24 - VTE Documentation of Mechanical Device: Intermittent pneumatic compression device Consult Discharge Plan - Plan Referrals: Yun Novak MD [Primary Care Provider] - 03/23/17 9:20 am (Please follow up as schedule...) Prescriptions: Azithromycin [Zithromax Tri-Edgar] 500 mg PO DAILY #2 tablet Cefdinir [Omnicef] 300 mg PO BID #8 capsule
[2017-03-18] MEDS: *HR* Heparin 5,000 UNIT/ML VIAL SQ SCH ×3 (00:05→15:15)
[2017-03-18] MEDS: Ipratropium/Albuterol Neb 3 ML IH SCH ×4 (04:08→23:01)
[2017-03-18 05:52] LABS: Basophils % 0.4 %; Eosinophils # 0.2 K/mcL (0.0-0.6); Eosinophils % 2.3 %; Hematocrit 36.2 % (37.5-50.1); Hemoglobin 11.6 g/dL (12.9-16.9); Immature Granulocytes % 0.5 % (0-4); Lymphocytes # 3.1 K/mcL (0.6-4.6); Lymphocytes % 40.1 %; Mean Corpuscular Hemoglobin 27.4 pg (28.0-33.3); Mean Corpuscular Volume 85.4 fL (83.0-100.0); Mean Platelet Volume 9.8 fL (9.4-12.4); Monocytes # 0.5 K/mcL (0.0-1.3); Neutrophils # 3.9 K/mcL (1.6-8.9); Platelet Count 183 K/mcL (140-400); Red Blood Count 4.24 M/mcL (4.19-5.50); Red Cell Distribution Width 17.2 % (11.5-14.5); Segmented Neutrophils % 50.7 %
[2017-03-18 06:03] LABS: BUN/Creatinine Ratio 23 (6-26); Blood Urea Nitrogen 29 mg/dL (8-26); Calcium 9.5 mg/dL (8.6-10.8); Carbon Dioxide 27 mEq/L (19-29); Chloride 106 mEq/L (98-109); Glucose 94 mg/dL (70-99); Osmolality,Calculated 296 (280-300); Potassium 4.1 mEq/L (3.5-4.5); Sodium 140 mEq/L (136-145); eGFR For African Americans > 60 (> 60); eGFR For Non-African Americans 56 (> 60)
[2017-03-18] MEDS: Furosemide 40 MG TABLET PO SCH (08:33)
[2017-03-18] MEDS: Magnesium Oxide 400 MG TABLET PO SCH ×3 (08:33→22:34)
[2017-03-18] MEDS: Acetaminophen 325 MG TABLET PO PRN (08:33)
[2017-03-18] MEDS: Metoprolol XL (24 HR) Succ 50 MG TAB.ER.24H PO SCH (08:33)
[2017-03-18] MEDS: Azithromycin 250 MG TABLET PO SCH (13:01)
--- NOTE | 2017-03-18 17:30 | Internal Med Progress Note ---
Date of Encounter: 03/18/17 Time of Encounter: 09:00 - Assessment and plan (1) CHF (congestive heart failure) Current Visit: Yes Status: Chronic Assessment and plan: Euvolemic on exam, continue home meds. Repeat echo. Qualifiers: Congestive heart failure type: diastolic Congestive heart failure chronicity: chronic Qualified Code(s): I50.32 - Chronic diastolic (congestive ) heart failure (2) CKD (chronic kidney disease) stage 3, GFR 30-59 ml/min Current Visit: Yes Status: Chronic Assessment and plan: CR and GFR stable and at baseline (3) Sleep apnea Current Visit: Yes Status: Chronic Assessment and plan: Ensure CPAP at night Qualifiers: Sleep apnea type: unspecified type Qualified Code(s): G47.30 - Sleep apnea , unspecified (4) Hypertension Current Visit: Yes Status: Chronic Assessment and plan: Controlled on current medications, continue same Qualifiers: Hypertension type: essential hypertension Qualified Code(s): I10 - Essential (primary) hypertension (5) DVT prophylaxis Current Visit: No Status: Acute Assessment and plan: Heparin subcutaneously (6) Hypothyroid Current Visit: Yes Status: Chronic Assessment and plan: Continue home dose of levothyroxine Clinically euthyroid Qualifiers: Hypothyroidism type: unspecified Qualified Code(s): E03.9 - Hypothyroidism , unspecified (7) Pneumonia Current Visit: Yes Status: Acute Assessment and plan: Clinically improved. Continue IV azithromycin and Rocephin. Continue supportive treatment. Qualifiers: Pneumonia type: due to unspecified organism Laterality: right Lung location: upper lobe of lung Qualified Code(s): J18.1 - Lobar pneumonia, unspecified organism (8) CAD (coronary artery disease) Current Visit: Yes Status: Chronic Assessment and plan: s/p [facility] with stent 12/2015, continue home meds Qualifiers: Coronary Disease-Associated Artery/Lesion type: [place] artery [place] vs. transplanted heart: [place] heart Associated angina: angina presence unspecified Qualified Code(s): I25.10 - Atherosclerotic heart disease of [place] coronary artery without angina pectoris - Time Spent With Patient 25 - 35 minutes - Subjective Interval history: Patient is a 72-year-old male admitted for community-acquired pneumonia. His past medical history is significant for CHF, diabetes, hypertension, CKD. Patient was seen and examined. He is still weak, mild cough. Denies shortness of breath or chest pain. Vitals are stable. Need oxygen to maintain oxygen saturation. qualified home oxygen. Will continue IV antibiotic. Place echo to evaluate heart function (Pt has MR on previous study.) - Constitutional Vitals: Temp Pulse Resp BP Pulse Ox 98.0 F 80 17 100/65 98 03/18/17 15:34 03/18/17 15:34 03/18/17 15:34 03/18/17 15:34 03/18/17 15:34 General appearance: Present: mild distress, A&O X 3, pleasant - Head Head exam: Present: atraumatic, normocephalic - Eye Eye exam: Present: PERRL, conjuntiva pink, sclera anicteric Pupils: Present: PERRL - Neck Neck exam general surgery: Present: supple, trachea midline. Absent: lymphadenopathy - Respiratory Respiratory exam: Present: CTAB. Absent: accessory muscle use, rales, rhonchi, wheezes - Cardiovascular Cardiovascular exam: Present: RRR, +S1, +S2. Absent: diastolic murmur, gallop, rubs, systolic murmur - GI/Abdominal GI/Abdominal exam: Present: normal bowel sounds, soft, no peritoneal signs. Absent: distended, tenderness - Extremities Exam Extremities exam: Present: warm, radial pulses palpable and symetrical. Absent : calf tenderness, cyanotic, pedal edema - Neurological Exam Neurological exam: Present: CN II-XII intact, oriented X3, no focal deficits. Absent: pronater drift, facial droop, speech deficit - Skin Skin exam: Present: dry, intact Internal Medicine: Result - Labs CBC & Chem 7: 03/18/17 05:32 03/18/17 05:32 Labs: Short CBC 03/18/17 Range/Units 05:32 WBC 7.7 (4.3-11.1) K/mcL Hgb 11.6 L (12.9-16.9) g/dL Hct 36.2 L (37.5-50.1) % Plt Count 183 (140-400) K/mcL Neutrophils # 3.9 (1.6-8.9) K/mcL BMP 03/18/17 05:32 Sodium 140 Potassium 4.1 Chloride 106 Carbon Dioxide 27 BUN 29 H Creatinine 1.27 H Glucose 94 Calcium 9.5 - VTE Documentation of Mechanical Device: Graduated compression elastic hosiery Consult Discharge Plan - Plan Referrals: Yun Novak MD [Primary Care Provider] - 03/23/17 9:20 am (Please follow up as schedule...) Prescriptions: Azithromycin [Zithromax Tri-Edgar] 500 mg PO DAILY #2 tablet Cefdinir [Omnicef] 300 mg PO BID #8 capsule
[2017-03-19] MEDS: *HR* Heparin 5,000 UNIT/ML VIAL SQ SCH ×3 (00:23→15:20)
[2017-03-19] MEDS: Ipratropium/Albuterol Neb 3 ML IH SCH ×4 (04:11→23:30)
[2017-03-19] MEDS: Metoprolol XL (24 HR) Succ 50 MG TAB.ER.24H PO SCH (09:23)
[2017-03-19] MEDS: Furosemide 40 MG TABLET PO SCH (09:23)
[2017-03-19] MEDS: Magnesium Oxide 400 MG TABLET PO SCH ×3 (09:24→21:23)
--- NOTE | 2017-03-19 12:47 | Event Note ---
Date of Encounter: 03/19/17 Time of Encounter: 12:43 - Cardiology Event Note Cardiology recommendations requested for echo findings. EF 60%, s/p MV repair with restricted leaflet motion. Mild posterior leaflet prolapse. Moderate- severe mitral stenosis mean gradient 10mmHg. Records reviewed. Pt had Mitral valve clipping at [facility] 03/2016. Recent visit with [facility] 01/08/17 severe mitral stenosis was noted with mean gradient of 14mmHg when HR >100bpm. [facility] recommended keeping HR <90 bpm and to continue to follow with local cardiology. Recommend following same recommendations of keeping HR <90 bpm and outpt follow- up. Discussed with Dr. Robles, full cardio consult not warranted. Will coordinate outpt follow-up. Please reconsult PRN.
[2017-03-19 14:05] LABS: INR 1.2; Prothrombin Time 13.1 Seconds (9.4-12.1)
--- NOTE | 2017-03-19 14:45 | IR Procedure Note ---
Date of procedure: 03/19/17 Consent Obtained: Verbal consent, Written consent Timeout: Correct patient and procedure verified, Correct site verified, Time out performed, Skin prep completed Local anesthetic: Lidocaine 1% Indications: Lymphadenopathy Procedure Performed: Left inguinal lymph node biopsy Site/Technique: US guided left inguinal lymph node biopsy Results/Findings: 5 18 gauge cores Estimated blood loss (cc): 4 Complications: None; Tolerated procedure well Post Procedure Treatment Plan: Continue inpatient care
--- NOTE | 2017-03-19 16:45 | Internal Med Progress Note ---
Date of Encounter: 03/19/17 Time of Encounter: 09:00 - Assessment and plan (1) CHF (congestive heart failure) Current Visit: Yes Status: Chronic Assessment and plan: Euvolemic on exam, continue home meds. Cont lasix po Qualifiers: Congestive heart failure type: diastolic Congestive heart failure chronicity: chronic Qualified Code(s): I50.32 - Chronic diastolic (congestive ) heart failure (2) CKD (chronic kidney disease) stage 3, GFR 30-59 ml/min Current Visit: Yes Status: Chronic Assessment and plan: CR and GFR stable and at baseline (3) Sleep apnea Current Visit: Yes Status: Chronic Assessment and plan: Ensure CPAP at night Qualifiers: Sleep apnea type: unspecified type Qualified Code(s): G47.30 - Sleep apnea , unspecified (4) Hypertension Current Visit: Yes Status: Chronic Assessment and plan: Controlled on current medications, continue same Qualifiers: Hypertension type: essential hypertension Qualified Code(s): I10 - Essential (primary) hypertension (5) DVT prophylaxis Current Visit: No Status: Acute Assessment and plan: Heparin subcutaneously (6) Hypothyroid Current Visit: Yes Status: Chronic Assessment and plan: Continue home dose of levothyroxine Clinically euthyroid Qualifiers: Hypothyroidism type: unspecified Qualified Code(s): E03.9 - Hypothyroidism , unspecified (7) Pneumonia Current Visit: Yes Status: Acute Assessment and plan: Clinically improved. Continue IV Rocephin. D/C azithromycin. Continue supportive treatment. Qualifiers: Pneumonia type: due to unspecified organism Laterality: right Lung location: upper lobe of lung Qualified Code(s): J18.1 - Lobar pneumonia, unspecified organism (8) CAD (coronary artery disease) Current Visit: Yes Status: Chronic Assessment and plan: s/p [facility] with stent 12/2015, continue home meds Qualifiers: Coronary Disease-Associated Artery/Lesion type: [place] artery [place] vs. transplanted heart: [place] heart Associated angina: angina presence unspecified Qualified Code(s): I25.10 - Atherosclerotic heart disease of [place] coronary artery without angina pectoris (9) Valvular disease Current Visit: Yes Status: Acute Assessment and plan: Patient had surgery and follow up with [facility]. Recommended to control heart rate lower than 90. Patient will further follow-up as outpatient (10) Pulmonary hypertension Current Visit: Yes Status: Acute Assessment and plan: Probably due to GREG and severe mitral stenosis. Continue oxygen therapy to avoid hypoxia. Patient needs to follow up with pulmonology as outpatient. (11) Adenopathy Current Visit: Yes Status: Acute Assessment and plan: Intra-abdominal and the left inguinal area adenopathy reviewed by CT. Biopsy done by interventional radiology. Hematology consult - Time Spent With Patient 25 - 35 minutes - Subjective Interval history: Patient is a 72-year-old male admitted for community-acquired pneumonia. His past medical history is significant for CHF, diabetes, hypertension, CKD. Patient was seen and examined. He is still weak, mild cough. Denies shortness of breath or chest pain. Vitals are stable. Need oxygen to maintain oxygen saturation. qualified home oxygen. CT chest suggest pneumonia or infectious/ inflammatory bronchiolitis. Pt has no wheezing. His SOB shows be multi factoral include lung inflammation and valvular disease and pulmonary hypertension ( estimated RVSP 70mmHg). Will continue IV antibiotic and supportive management, keep HR < 90. Continue oxygen therapy. Pt was found adenopathy intra-abd and left inguinal area. IR biopsy done, onco consult called. - Constitutional Vitals: Temp Pulse Resp BP Pulse Ox 98.4 F 90 18 104/69 99 03/19/17 16:09 03/19/17 16:09 03/19/17 16:09 03/19/17 16:09 03/19/17 16:09 General appearance: Present: mild distress, A&O X 3, pleasant - Head Head exam: Present: atraumatic, normocephalic - Eye Eye exam: Present: PERRL, conjuntiva pink, sclera anicteric Pupils: Present: PERRL - Neck Neck exam general surgery: Present: supple, trachea midline. Absent: lymphadenopathy - Respiratory Respiratory exam: Present: CTAB. Absent: accessory muscle use, rales, rhonchi, wheezes - Cardiovascular Cardiovascular exam: Present: RRR, +S1, +S2. Absent: diastolic murmur, gallop, rubs, systolic murmur - GI/Abdominal GI/Abdominal exam: Present: normal bowel sounds, soft, no peritoneal signs. Absent: distended, tenderness - Extremities Exam Extremities exam: Present: warm, radial pulses palpable and symetrical. Absent : calf tenderness, cyanotic, pedal edema - Neurological Exam Neurological exam: Present: CN II-XII intact, oriented X3, no focal deficits. Absent: pronater drift, facial droop, speech deficit - Skin Skin exam: Present: dry, intact Internal Medicine: Result - Labs CBC & Chem 7: 03/18/17 05:32 03/18/17 05:32 - ABG Interpretation ABG results: PT/INR, D-dimer PT 13.1 Seconds (9.4-12.1) H 03/19/17 13:49 - Impressions Impressions Lymph Node Biopsy/Excision 03/19/17 00:00 IMPRESSION: Successful ultrasound guided core biopsy of a large left inguinal lymph node. No immediate complications. D/ / Duran Romo MD / Duran Romo MD Interpreting Provider: Duran Romo MD Chest X-Ray 03/19/17 07:13 IMPRESSION: Persistent right upper lobe infiltrate consistent with pneumonia, without significant interval change from the most recent examination, though improved compared to 03/09/2017. D/ / Darien Aguiar MD / Darien Aguiar MD Interpreting Provider: Darien Aguiar MD Chest CT 03/19/17 07:56 IMPRESSION: 1. Nonspecific reticulonodular and ground-glass opacities within the right upper lobe are new from the study of 08/2015, and most likely reflect pneumonia, or an infectious or inflammatory bronchiolitis. However, continued imaging surveillance is recommended to ensure complete clearing of these opacities as intra pulmonary malignancy is not excluded. Consider a follow-up chest CT in 2-3 months to reassess for resolution of these opacities. 2. Interval decrease in size of a small right pleural effusion with resolution of the previously identified left pleural effusion. 3. New nonspecific splenomegaly with interval enlargement of a gastrohepatic ligament lymph node since the prior exam of 08/2015. While the patient's supraclavicular and mediastinal lymph nodes have remained stable in size, the splenomegaly and enlarging gastrohepatic lymph node are concerning for a lymphoproliferative disorder, to include lymphoma. Suggest clinical correlation, and consider a CT abdomen/pelvis to evaluate for additional lymphadenopathy. D/ / 03/19/2017 09:14:00 Duran Causey MD / [facility] Interpreting Provider: Duran Causey MD Abdomen/Pelvis CT 03/19/17 11:13 IMPRESSION: 1. There are enlarged left inguinal, external iliac, and retroperitoneal/retrocrural lymph nodes which are concerning for metastatic disease versus lymphoma. The largest is a left inguinal lymph node measuring 9.3 x 4.9 cm. 2. Cirrhosis with sequela of portal hypertension. 3. Small right pleural effusion. 4. Indeterminate high attenuation cysts noted in the lower poles of the kidneys, the largest of which is in the lower pole of the left kidney measuring 1.1 x [address] of the kidneys in a renal mass protocol could be performed for further evaluation if clinically indicated. 5. Bilateral inguinal hernias containing fat. D/ / 03/19/2017 12:15:52 Asher Heredia MD / veronica Interpreting Provider: Asher Heredia MD - VTE Documentation of Mechanical Device: Graduated compression elastic hosiery Consult Discharge Plan - Plan Referrals: Yun Novak MD [Primary Care Provider] - 03/23/17 9:20 am (Please follow up as schedule...) Prescriptions: Azithromycin [Zithromax Tri-Edgar] 500 mg PO DAILY #2 tablet Cefdinir [Omnicef] 300 mg PO BID #8 capsule
[2017-03-20] MEDS: Ipratropium/Albuterol Neb 3 ML IH SCH ×4 (04:00→22:46)
[2017-03-20] MEDS: *HR* Heparin 5,000 UNIT/ML VIAL SQ SCH ×4 (05:46→23:20)
[2017-03-20] MEDS: Acetaminophen 325 MG TABLET PO PRN (05:53)
[2017-03-20 08:01] LABS: Basophils % 0.3 %; Eosinophils # 0.3 K/mcL (0.0-0.6); Eosinophils % 2.6 %; Hemoglobin 11.7 g/dL (12.9-16.9); Immature Granulocytes % 0.4 % (0-4); Lymphocytes # 2.7 K/mcL (0.6-4.6); Lymphocytes % 26.6 %; Mean Corpuscular HGB Conc 31.6 g/dL (31.6-35.5); Mean Corpuscular Hemoglobin 27.6 pg (28.0-33.3); Mean Corpuscular Volume 87.3 fL (83.0-100.0); Mean Platelet Volume 10.4 fL (9.4-12.4); Monocytes # 0.6 K/mcL (0.0-1.3); Monocytes % 5.7 %; Neutrophils # 6.5 K/mcL (1.6-8.9); Platelet Count 199 K/mcL (140-400); Red Blood Count 4.24 M/mcL (4.19-5.50); Red Cell Distribution Width 17.2 % (11.5-14.5); Segmented Neutrophils % 64.4 %
[2017-03-20 08:20] LABS: BUN/Creatinine Ratio 20 (6-26); Blood Urea Nitrogen 28 mg/dL (8-26); Calcium 9.8 mg/dL (8.6-10.8); Carbon Dioxide 29 mEq/L (19-29); Chloride 106 mEq/L (98-109); Glucose 97 mg/dL (70-99); Osmolality,Calculated 297 (280-300); Sodium 141 mEq/L (136-145); eGFR For African Americans > 60 (> 60); eGFR For Non-African Americans 50 (> 60)
[2017-03-20 08:27] LABS: Potassium 5.3 mEq/L (3.5-4.5)
[2017-03-20] MEDS: Metoprolol XL (24 HR) Succ 50 MG TAB.ER.24H PO SCH (08:49)
[2017-03-20] MEDS: Magnesium Oxide 400 MG TABLET PO SCH ×3 (08:53→20:36)
[2017-03-20] MEDS: Furosemide 40 MG TABLET PO SCH (08:53)
[2017-03-20] MEDS: Budesonide/Formoterol 160/4.5 MDI IH SCH ×2 (11:26→22:46)
--- NOTE | 2017-03-20 12:53 | Pulmonology Consult Note ---
Date of Encounter: 03/20/17 Time of Encounter: 11:30 Assessment and Plan (1) Pneumonia Current Visit: Yes Status: Acute Clinical presentation and radiography consistent with pneumonia. Failure to improve with appropriate empiric antibiotics suggests likely etiology found that of typical bacterial organisms. Tree-in-bud appearance and location and posterior segment right upper lobe could be consistent with tuberculosis however patient has no identifiable risk factors and clinical presentation is not consistent with tuberculosis. More likely that this represents an NTM infection. Recommend consulting respiratory therapy to obtain induced sputum for acid-fast staining. Given his lack of risk factors for TB, is not unreasonable to obtain serum QuantiFERON which if negative, effectively rules out tuberculosis. At this point recommend continuing with current antibiotics with plan for follow-up after induced sputum's. Qualifiers: Pneumonia type: due to unspecified organism Laterality: right Lung location: upper lobe of lung Qualified Code(s): J18.1 - Lobar pneumonia, unspecified organism (2) Pulmonary hypertension Current Visit: Yes Status: Chronic Patient has several conditions are likely contributing to his dyspnea. His pulmonary hypertension is most likely group II and do more specifically to moderate severe mitral stenosis. In cases of group II pulmonary hypertension, pulmonary artery vasodilators are largely considered contraindicated. Cardiology services [facility] consult for management of mitral stenosis and brief recommendations and placed in the chart. History of Present Illness Consult date: 03/20/17 Requesting physician: Ceci Robles Reason for consult: pneumonia Chief complaint: Dyspnea History of present illness: Consulted by internal medicine for evaluation a 72-year-old male admitted for right upper lobe pneumonia. Patient has been on empiric antibiotics for several days but has not shown any clinical improvement. Patient has history of mitral valve stenosis and is status post valvuloplasty in March 2016. Patient notes that since that time he has had persistent shortness of breath of varying severity. He notes that approximately 2 weeks ago, he began to notice an increase in his shortness of breath. He began to experience right-sided pleuritic chest pain and noted a cough occasionally productive of clear white sputum. Patient noted fever of approximately 100.2 degrees. Notes increased sinus congestion and describes his dyspnea is a sense of air hunger. Patient was treated as an outpatient with oral Augmentin but noticed no change in his symptoms after several days of therapy. Denies night sweats but has had significant variations in his weight over the past year. Denies unintentional weight loss however he does admit to decreased appetite over the past 2 weeks. Patient denies any history of living outside the [place], prolonged travel abroad, periods of indigence, or incarceration. Denies any known infectious disease contacts. Past Med Surg Social Fam HX - Past Medical History Medical history: cancer (skin), CHF, diabetes, GERD, hepatitis, hypertension, migraine, renal disease, thyroid disease, valvular heart disease, other Psychiatric history: anxiety, depression - Past Surgical History Surgical History: angioplasty/stent, orthopedic, other, other (mitral valve repair) - Social History Smoking Status: Never smoker Smokeless Tobacco Status: No Alcohol use: none Drug use: none - Family History Father Living Status: Hx Family Cancer: Yes Mother Adopted: No Family Member Ethnicity: Non- Living Status: Age at : 75 Cause of : [place] Hx Family Cardiac Disorders: Yes Hx Family Respiratory Disorders: No Hx Family Cancer: No Hx Family GI Disorders: No Hx Family Endocrine Disorder: No Hx Family Neuromuscular Disorders: No Hx Family Neurologic Disorders: No Hx Family HEENT Disorders: No Hx Family Autoimmune Disorders: No Medications and Allergies Levothyroxine Sodium [Synthroid] 137 mcg PO QAM 07/31/15 [History] Magnesium Oxide [Mag-Ox] 400 mg PO TID 07/31/15 [History] Solifenacin Succinate [Vesicare] 10 mg PO QAM 07/31/15 [History] Tamsulosin [Flomax] 0.4 mg PO DAILY 07/31/15 [History] Eletriptan HBr [Relpax] 20 mg PO DAILY PRN 03/18/16 [History] Furosemide [Lasix] 40 mg PO DAILY 03/18/16 [History] Lisinopril [Zestril] 5 mg PO DAILY 03/09/17 [History] Allopurinol [Zyloprim 300 MG] 300 mg PO DAILY 03/14/17 [History] Atorvastatin [Lipitor] 40 mg PO DAILY 03/14/17 [History] Clopidogrel [Plavix] 75 mg PO DAILY 03/14/17 [History] Metoprolol XL (24 HR) Succ [Toprol Xl] 75 mg PO QAM 03/14/17 [History] Omeprazole [PriLOSEC] 40 mg PO DAILY 03/14/17 [History] Azithromycin [Zithromax Tri-Edgar] 500 mg PO DAILY #2 tablet 03/16/17 [Rx] Cefdinir [Omnicef] 300 mg PO BID #8 capsule 03/16/17 [Rx] Allergies Oxycodone Adverse Reaction (Mild, Verified 03/14/17 09:35) Itching rash/ but states he is not sure that is what caused it All Systems: A 10-system review of systems was performed and is negative for pertinent findings except as documented above in the HPI. - Constitutional Constitutional: anorexia, fatigue, fever(s), weakness, weight gain, weight loss , no excessive sweating, no night sweats - EENT Eyes: loss of vision Nose, mouth and throat: nasal congestion, no dysphagia, no odynophagia - Cardiovascular Cardiovascular: no irregular heart rhythm, no orthopnea, no paroxysmal nocturnal dyspnea, no pedal edema - Respiratory Respiratory: cough, dyspnea, dyspnea on exertion, no hemoptysis, no wheezing, no stridor, no excessive phlegm production - Gastrointestinal Gastrointestinal: no abdominal pain, no cramping, no diarrhea, no hematemesis - Genitourinary Genitourinary: no dysuria - Musculoskeletal Musculoskeletal: no arthralgias, no stiffness - Integumentary Integumentary: no rash - Neurological Neurological: dizziness, no abnormal gait, no lack of coordination, no memory loss, no paresthesias, no syncope - Psychiatric Psychiatric: no anxiety, no panic attacks - Endocrine Endocrine: no flushing - Allergic/Immunologic Allergic/Immunologic: no wheezing Physical Examination Vital Signs: Vital Signs, Last 4 Hours Temp Pulse Resp BP Pulse Ox 03/20/17 12:20 98.4 F 103 18 100/65 96 03/20/17 11:26 16 94 General appearance: no acute distress Eyes: nonicteric Auscultation: left: clear, right: rhonchi (Over right middle and upper hua) Cardiovascular: regular rate and rhythm Gastrointestinal: soft, non-tender Integumentary: normal Extremities: no cyanosis, no edema, no clubbing Musculoskeletal: no deformities normal mental status, non-focal exam mood appropriate Results - Laboratory Findings CBC and BMP: 03/20/17 07:11 03/20/17 07:11 PT/INR, D-dimer PT 13.1 Seconds (9.4-12.1) H 03/19/17 13:49 Abnormal lab findings: Abnormal lab results Hgb 11.7 g/dL (12.9-16.9) L 03/20/17 07:11 Hct 37.0 % (37.5-50.1) L 03/20/17 07:11 MCH 27.6 pg (28.0-33.3) L 03/20/17 07:11 RDW 17.2 % (11.5-14.5) H 03/20/17 07:11 PT 13.1 Seconds (9.4-12.1) H 03/19/17 13:49 Potassium 5.3 mEq/L (3.5-4.5) H D 03/20/17 07:11 BUN 28 mg/dL (8-26) H 03/20/17 07:11 Creatinine 1.40 mg/dL (0.72-1.25) H 03/20/17 07:11 Est GFR (Non-Af Amer) 50 (> 60) L 03/20/17 07:11 POC Glucose 137 (58-89) H 03/18/17 20:47 B-Natriuretic Peptide 244 pg/mL (0-100) H 03/14/17 08:20 - Clinical Findings Intake & Output: Intake & Output 03/19/17 03/20/17 03/20/17 23:59 07:59 15:59 Intake Total 200 / 200 0 / 0 480 / 480 Output Total 0 / 0 Balance 200 / 200 0 / 0 480 / 480 Weight 99.3 kg Consult Discharge Plan - Plan Referrals: Yun Novak MD [Primary Care Provider] - 03/23/17 9:20 am (Please follow up as schedule...) Prescriptions: Azithromycin [Zithromax Tri-Edgar] 500 mg PO DAILY #2 tablet Cefdinir [Omnicef] 300 mg PO BID #8 capsule
--- NOTE | 2017-03-20 16:52 | Internal Med Progress Note ---
Date of Encounter: 03/20/17 Time of Encounter: 10:00 - Assessment and plan (1) CHF (congestive heart failure) Current Visit: Yes Status: Chronic Assessment and plan: Euvolemic on exam, continue home meds. Cont lasix po Qualifiers: Congestive heart failure type: diastolic Congestive heart failure chronicity: chronic Qualified Code(s): I50.32 - Chronic diastolic (congestive ) heart failure (2) CKD (chronic kidney disease) stage 3, GFR 30-59 ml/min Current Visit: Yes Status: Chronic Assessment and plan: CR and GFR stable and at baseline (3) Sleep apnea Current Visit: Yes Status: Chronic Assessment and plan: Ensure CPAP at night Qualifiers: Sleep apnea type: unspecified type Qualified Code(s): G47.30 - Sleep apnea , unspecified (4) Hypertension Current Visit: Yes Status: Chronic Assessment and plan: Controlled on current medications, continue same Qualifiers: Hypertension type: essential hypertension Qualified Code(s): I10 - Essential (primary) hypertension (5) DVT prophylaxis Current Visit: No Status: Acute Assessment and plan: Heparin subcutaneously (6) Hypothyroid Current Visit: Yes Status: Chronic Assessment and plan: Continue home dose of levothyroxine Clinically euthyroid Qualifiers: Hypothyroidism type: unspecified Qualified Code(s): E03.9 - Hypothyroidism , unspecified (7) Pneumonia Current Visit: Yes Status: Acute Assessment and plan: Clinically improved but still cough. CT chest no significant change. Continue IV Rocephin. Pulmonology consult appreciated, TB workup to r/o TB. Qualifiers: Pneumonia type: due to unspecified organism Laterality: right Lung location: upper lobe of lung Qualified Code(s): J18.1 - Lobar pneumonia, unspecified organism (8) CAD (coronary artery disease) Current Visit: Yes Status: Chronic Assessment and plan: s/p C with stent 12/2015, continue home meds Qualifiers: Coronary Disease-Associated Artery/Lesion type: [place] artery [place] vs. transplanted heart: [place] heart Associated angina: angina presence unspecified Qualified Code(s): I25.10 - Atherosclerotic heart disease of [place] coronary artery without angina pectoris (9) Valvular disease Current Visit: Yes Status: Acute Assessment and plan: Patient had surgery and follow up with [facility]. Recommended to control heart rate lower than 90. Patient will further follow-up as outpatient. Increase metoprolol CD from 75mg to 100mg b/o HR is high (10) Pulmonary hypertension Current Visit: Yes Status: Chronic Assessment and plan: Probably due to severe mitral stenosis. Continue oxygen therapy to avoid hypoxia. Pulmonology consult appreciated. (11) Adenopathy Current Visit: Yes Status: Acute Assessment and plan: Intra-abdominal and the left inguinal area adenopathy revealed by CT. Biopsy done by interventional radiology. Hematology consult and pathology pending. - Time Spent With Patient 25 - 35 minutes - Subjective Interval history: Patient is a 72-year-old male admitted for community-acquired pneumonia. His past medical history is significant for CHF, diabetes, hypertension, CKD. Patient was seen and examined. He is still weak, mild to moderate cough. Denies shortness of breath or chest pain. But has exertional SOB. Vitals are stable. Need oxygen to maintain oxygen saturation. qualified home oxygen. Pulmonology consult appreciated, need to r/o TB, will check 3 sets of AFB smear and Quntiferin test. Cont current treatment and supportive management. Add symbicort and cough syrup. - Constitutional Vitals: Temp Pulse Resp BP Pulse Ox 98.6 F 93 16 94/63 95 03/20/17 15:30 03/20/17 15:30 03/20/17 15:50 03/20/17 15:30 03/20/17 15:50 General appearance: Present: mild distress, A&O X 3, pleasant - Head Head exam: Present: atraumatic, normocephalic - Eye Eye exam: Present: PERRL, conjuntiva pink, sclera anicteric Pupils: Present: PERRL - Neck Neck exam general surgery: Present: supple, trachea midline. Absent: lymphadenopathy - Respiratory Respiratory exam: Present: CTAB, wheezes (Scattered wheezes on left lung base.) . Absent: accessory muscle use, rales, rhonchi - Cardiovascular Cardiovascular exam: Present: RRR, +S1, +S2. Absent: diastolic murmur, gallop, rubs, systolic murmur - GI/Abdominal GI/Abdominal exam: Present: normal bowel sounds, soft, no peritoneal signs. Absent: distended, tenderness - Extremities Exam Extremities exam: Present: warm, radial pulses palpable and symetrical. Absent : calf tenderness, cyanotic, pedal edema - Neurological Exam Neurological exam: Present: CN II-XII intact, oriented X3, no focal deficits. Absent: pronater drift, facial droop, speech deficit - Skin Skin exam: Present: dry, intact Internal Medicine: Result - Labs CBC & Chem 7: 03/20/17 07:11 03/20/17 07:11 Labs: Short CBC 03/20/17 Range/Units 07:11 WBC 10.1 (4.3-11.1) K/mcL Hgb 11.7 L (12.9-16.9) g/dL Hct 37.0 L (37.5-50.1) % Plt Count 199 (140-400) K/mcL Neutrophils # 6.5 (1.6-8.9) K/mcL BMP 03/20/17 07:11 Sodium 141 Potassium 5.3 H D Chloride 106 Carbon Dioxide 29 BUN 28 H Creatinine 1.40 H Glucose 97 Calcium 9.8 - ABG Interpretation ABG results: PT/INR, D-dimer PT 13.1 Seconds (9.4-12.1) H 03/19/17 13:49 - Impressions Impressions Chest CT 03/19/17 07:56 IMPRESSION: 1. Nonspecific reticulonodular and ground-glass opacities within the right upper lobe are new from the study of 08/2015, and most likely reflect pneumonia, or an infectious or inflammatory bronchiolitis. However, suggest appropriate clinical treatment, and continued imaging surveillance is recommended to ensure complete clearing of these opacities, as intrapulmonary malignancy is not excluded. Consider a follow-up chest CT in 2-3 months to reassess for resolution of these opacities. 2. Interval decrease in size of a small right pleural effusion with resolution of the previously identified left pleural effusion. 3. New nonspecific splenomegaly with interval enlargement of a gastrohepatic ligament lymph node since the prior exam of 08/2015. While the patient's supraclavicular and mediastinal lymph nodes have remained stable in size, the splenomegaly and enlarging gastrohepatic lymph node are concerning for a lymphoproliferative disorder, to include lymphoma. Suggest clinical correlation, and consider a CT abdomen/pelvis to evaluate for additional lymphadenopathy. D/ / 03/19/2017 09:14:00 Duran Causey MD / [facility] Interpreting Provider: Duran Causey MD - VTE Documentation of Mechanical Device: Graduated compression elastic hosiery Consult Discharge Plan - Plan Referrals: Yun Novak MD [Primary Care Provider] - 03/23/17 9:20 am (Please follow up as schedule...) Prescriptions: Azithromycin [Zithromax Tri-Edgar] 500 mg PO DAILY #2 tablet Cefdinir [Omnicef] 300 mg PO BID #8 capsule
[2017-03-21] MEDS: Ipratropium/Albuterol Neb 3 ML IH SCH ×4 (04:03→22:55)
[2017-03-21 05:20] LABS: Basophils # 0.1 K/mcL (0.0-0.2); Basophils % 0.5 %; Eosinophils # 0.3 K/mcL (0.0-0.6); Eosinophils % 2.5 %; Hematocrit 39.9 % (37.5-50.1); Hemoglobin 12.5 g/dL (12.9-16.9); Immature Granulocytes % 0.4 % (0-4); Lymphocytes # 3.4 K/mcL (0.6-4.6); Lymphocytes % 33.6 %; Mean Corpuscular HGB Conc 31.3 g/dL (31.6-35.5); Mean Corpuscular Hemoglobin 27.2 pg (28.0-33.3); Mean Corpuscular Volume 86.9 fL (83.0-100.0); Mean Platelet Volume 10.1 fL (9.4-12.4); Monocytes # 0.6 K/mcL (0.0-1.3); Monocytes % 5.9 %; Neutrophils # 5.8 K/mcL (1.6-8.9); Platelet Count 208 K/mcL (140-400); Red Blood Count 4.59 M/mcL (4.19-5.50); Red Cell Distribution Width 17.2 % (11.5-14.5); Segmented Neutrophils % 57.1 %
[2017-03-21 05:30] LABS: BUN/Creatinine Ratio 20 (6-26); Blood Urea Nitrogen 24 mg/dL (8-26); Calcium 9.4 mg/dL (8.6-10.8); Carbon Dioxide 24 mEq/L (19-29); Chloride 103 mEq/L (98-109); Glucose 95 mg/dL (70-99); Osmolality,Calculated 294 (280-300); Sodium 140 mEq/L (136-145); eGFR For African Americans > 60 (> 60); eGFR For Non-African Americans 58 (> 60)
[2017-03-21 05:34] LABS: Potassium 3.7 mEq/L (3.5-4.5)
[2017-03-21] MEDS: Metoprolol XL (24 HR) Succ 50 MG TAB.ER.24H PO SCH ×2 (06:09→07:54)
[2017-03-21] MEDS: Furosemide 40 MG TABLET PO SCH (07:53)
[2017-03-21] MEDS: Magnesium Oxide 400 MG TABLET PO SCH ×3 (07:53→21:28)
[2017-03-21] MEDS: *HR* Heparin 5,000 UNIT/ML VIAL SQ SCH ×2 (07:54→15:24)
[2017-03-21] MEDS: Budesonide/Formoterol 160/4.5 MDI IH SCH ×2 (10:49→22:55)
--- NOTE | 2017-03-21 11:15 | Pulmonology Progress Note ---
Date of Encounter: 03/21/17 Time of Encounter: 09:40 Assessment and Plan (1) Pneumonia Current Visit: Yes Status: Acute Radiographic appearance, location, and failure to respond to treatment for typical organisms suggests another etiology. Suspicious for NTM infection. Simple sputum cultures will likely be insufficient. Recommend having respiratory therapy see patient with induction of sputum using nebulized saline. During the conversation today, patient revealed possible new relevant exposure. 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 It is possible that this could be territory representative of fungal infection as well. Recommend obtaining fungal cultures and stains for fungal elements and sputum as well as AFB. Order has been placed to obtain fungal serologies. 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 Recommend against initiation of pulmonary artery vasodilators. Recommend adherence to cardiology recommendations for management of mitral stenosis. Subjective Principal diagnosis: Right upper lobe pneumonia Interval history: Consulted for diagnostic and management assistance on a 72-year-old male with right upper lobe infiltrate with some tree-in-bud opacities and clinically unresolving pneumonia. Yesterday recommended continuation of antibiotics and induce sputum cultures with a bee stings. Patient states that he is provided sputum cultures but they have not been induced with nebulized saline. Today patient reports no change in his symptoms. No new complaints. Objective PUL Vital signs: Last Vital Signs Temp 98 F 03/21/17 08:01 Pulse 90 03/21/17 08:01 Resp 16 03/21/17 10:49 BP 111/68 03/21/17 08:01 Pulse Ox 92 03/21/17 10:49 General appearance: no acute distress Eyes: nonicteric Neck: supple Auscultation: bilateral: other (Wheezing and rhonchi greatest over right middle and upper field. Otherwise clear to auscultation) Cardiovascular: regular rate and rhythm Gastrointestinal: soft, non-tender Extremities: no cyanosis, no edema, no clubbing Musculoskeletal: no deformities normal mental status mood appropriate Results - Laboratory Findings CBC and BMP: 03/21/17 04:31 03/21/17 04:31 PT/INR, D-dimer PT 13.1 Seconds (9.4-12.1) H 03/19/17 13:49 Abnormal lab findings: Abnormal lab results Hgb 12.5 g/dL (12.9-16.9) L 03/21/17 04:31 MCH 27.2 pg (28.0-33.3) L 03/21/17 04:31 MCHC 31.3 g/dL (31.6-35.5) L 03/21/17 04:31 RDW 17.2 % (11.5-14.5) H 03/21/17 04:31 PT 13.1 Seconds (9.4-12.1) H 03/19/17 13:49 Est GFR (Non-Af Amer) 58 (> 60) L 03/21/17 04:31 POC Glucose 137 (58-89) H 03/18/17 20:47 B-Natriuretic Peptide 244 pg/mL (0-100) H 03/14/17 08:20 - Clinical Findings Intake & Output: Intake & Output 03/20/17 03/21/17 03/21/17 23:59 07:59 15:59 Intake Total 0 / 0 Output Total 400 / 400 0 / 0 Balance -400 / -400 0 / 0 Weight 99.1 kg - VTE Documentation of Mechanical Device: Graduated compression elastic hosiery Consult Discharge Plan - Plan Referrals: Yun Novak MD [Primary Care Provider] - 03/23/17 9:20 am (Please follow up as schedule...) Prescriptions: Azithromycin [Zithromax Tri-Edgar] 500 mg PO DAILY #2 tablet Cefdinir [Omnicef] 300 mg PO BID #8 capsule
[2017-03-21] MEDS: Acetaminophen 325 MG TABLET PO PRN (14:26)
--- NOTE | 2017-03-21 15:09 | Internal Med Progress Note ---
Date of Encounter: 03/21/17 Time of Encounter: 09:00 - Assessment and plan (1) CHF (congestive heart failure) Current Visit: Yes Status: Chronic Assessment and plan: Euvolemic on exam, continue home meds. Cont lasix po Qualifiers: Congestive heart failure type: diastolic Congestive heart failure chronicity: chronic Qualified Code(s): I50.32 - Chronic diastolic (congestive ) heart failure (2) CKD (chronic kidney disease) stage 3, GFR 30-59 ml/min Current Visit: Yes Status: Chronic Assessment and plan: CR and GFR stable and at baseline (3) Sleep apnea Current Visit: Yes Status: Chronic Assessment and plan: Ensure CPAP at night Qualifiers: Sleep apnea type: unspecified type Qualified Code(s): G47.30 - Sleep apnea , unspecified (4) Hypertension Current Visit: Yes Status: Chronic Assessment and plan: Controlled on current medications, continue same Qualifiers: Hypertension type: essential hypertension Qualified Code(s): I10 - Essential (primary) hypertension (5) DVT prophylaxis Current Visit: No Status: Acute Assessment and plan: Heparin subcutaneously (6) Hypothyroid Current Visit: Yes Status: Chronic Assessment and plan: Continue home dose of levothyroxine Clinically euthyroid Qualifiers: Hypothyroidism type: unspecified Qualified Code(s): E03.9 - Hypothyroidism , unspecified (7) Pneumonia Current Visit: Yes Status: Acute Assessment and plan: Clinically improved but still cough. CT chest no significant change. Continue IV Rocephin. Pulmonology consult appreciated, TB and fungal workup ordered. Qualifiers: Pneumonia type: due to unspecified organism Laterality: right Lung location: upper lobe of lung Qualified Code(s): J18.1 - Lobar pneumonia, unspecified organism (8) CAD (coronary artery disease) Current Visit: Yes Status: Chronic Assessment and plan: s/p [facility] with stent 12/2015, continue home meds Qualifiers: Coronary Disease-Associated Artery/Lesion type: [place] artery [place] vs. transplanted heart: [place] heart Associated angina: angina presence unspecified Qualified Code(s): I25.10 - Atherosclerotic heart disease of [place] coronary artery without angina pectoris (9) Valvular disease Current Visit: Yes Status: Acute Assessment and plan: Patient had surgery and follow up with [facility]. Recommended to control heart rate lower than 90. Patient will further follow-up as outpatient. Increase metoprolol CD to 150mg b/o HR is high (10) Pulmonary hypertension Current Visit: Yes Status: Chronic Assessment and plan: Probably due to severe mitral stenosis. Continue oxygen therapy to avoid hypoxia. Pulmonology consult appreciated. (11) Adenopathy Current Visit: Yes Status: Acute Assessment and plan: Intra-abdominal and the left inguinal area adenopathy revealed by CT. Biopsy done by interventional radiology. Hematology consult and pathology pending. - Time Spent With Patient 25 - 35 minutes - Subjective Interval history: Patient is a 72-year-old male admitted for community-acquired pneumonia. His past medical history is significant for CHF, diabetes, hypertension, CKD. Patient was seen and examined. He still has mild to moderate cough. Denies shortness of breath or chest pain. Still has exertional SOB. Vitals are stable. Need oxygen to maintain oxygen saturation. qualified home oxygen. Pulmonology consult appreciated, suggest fungal test. Will cont current treatment, may consider d/c abx after 7 day course. - Constitutional Vitals: Temp Pulse Resp BP Pulse Ox 98.7 F 95 16 102/63 98 03/21/17 12:00 03/21/17 12:00 03/21/17 12:00 03/21/17 12:00 03/21/17 12:00 General appearance: Present: mild distress, A&O X 3, pleasant - Head Head exam: Present: atraumatic, normocephalic - Eye Eye exam: Present: PERRL, conjuntiva pink, sclera anicteric Pupils: Present: PERRL - Neck Neck exam general surgery: Present: supple, trachea midline. Absent: lymphadenopathy - Respiratory Respiratory exam: Present: CTAB. Absent: accessory muscle use, rales, rhonchi, wheezes - Cardiovascular Cardiovascular exam: Present: RRR, +S1, +S2. Absent: diastolic murmur, gallop, rubs, systolic murmur - GI/Abdominal GI/Abdominal exam: Present: normal bowel sounds, soft, no peritoneal signs. Absent: distended, tenderness - Extremities Exam Extremities exam: Present: warm, radial pulses palpable and symetrical. Absent : calf tenderness, cyanotic, pedal edema - Neurological Exam Neurological exam: Present: CN II-XII intact, oriented X3, no focal deficits. Absent: pronater drift, facial droop, speech deficit - Skin Skin exam: Present: dry, intact Internal Medicine: Result - Labs CBC & Chem 7: 03/21/17 04:31 03/21/17 04:31 Labs: Short CBC 03/21/17 Range/Units 04:31 WBC 10.2 (4.3-11.1) K/mcL Hgb 12.5 L (12.9-16.9) g/dL Hct 39.9 (37.5-50.1) % Plt Count 208 (140-400) K/mcL Neutrophils # 5.8 (1.6-8.9) K/mcL BMP 03/21/17 04:31 Sodium 140 Potassium 3.7 D Chloride 103 Carbon Dioxide 24 BUN 24 Creatinine 1.23 Glucose 95 Calcium 9.4 - ABG Interpretation ABG results: PT/INR, D-dimer PT 13.1 Seconds (9.4-12.1) H 03/19/17 13:49 - VTE Documentation of Mechanical Device: Graduated compression elastic hosiery Consult Discharge Plan - Plan Referrals: Yun Novak MD [Primary Care Provider] - 03/23/17 9:20 am (Please follow up as schedule...) Prescriptions: Azithromycin [Zithromax Tri-Edgar] 500 mg PO DAILY #2 tablet Cefdinir [Omnicef] 300 mg PO BID #8 capsule
[2017-03-22] MEDS: *HR* Heparin 5,000 UNIT/ML VIAL SQ SCH ×4 (00:03→23:49)
[2017-03-22] MEDS: Ipratropium/Albuterol Neb 3 ML IH SCH ×4 (04:20→23:01)
[2017-03-22] MEDS: Metoprolol XL (24 HR) Succ 50 MG TAB.ER.24H PO SCH (09:53)
[2017-03-22] MEDS: Furosemide 40 MG TABLET PO SCH (09:53)
[2017-03-22] MEDS: Magnesium Oxide 400 MG TABLET PO SCH ×3 (09:54→21:07)
[2017-03-22] MEDS: Budesonide/Formoterol 160/4.5 MDI IH SCH ×2 (11:00→22:59)
--- NOTE | 2017-03-22 16:00 | Pulmonology Progress Note ---
Date of Encounter: 03/22/17 Time of Encounter: 15:50 Assessment and Plan (1) Pneumonia Current Visit: Yes Status: Acute Induce sputum's have not been obtained and patient is been unable to produce significant quantity from spontaneous cough. Discussed utility of diagnostic bronchoscopy and patient is agreeable. Endoscopy schedulers unavailable today the patient be made nothing by mouth tonight for planned attempt at diagnostic bronchoscopy tomorrow. 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 Recommend against initiation of pulmonary artery vasodilators. Recommend adherence to cardiology recommendations for management of mitral stenosis. Subjective Principal diagnosis: Right upper lobe pneumonia Interval history: Consulted for diagnostic and management assistance on a 72-year-old male with right upper lobe infiltrate with some tree-in-bud opacities and clinically unresolving pneumonia. No progress has been made in obtaining sputum sample for culture and AFB staining. Today patient reports no change in symptoms. Objective PUL Vital signs: Last Vital Signs Temp 98.5 F 03/22/17 12:00 Pulse 93 03/22/17 12:00 Resp 16 03/22/17 15:33 BP 101/63 03/22/17 12:00 Pulse Ox 96 03/22/17 15:33 General appearance: no acute distress Effort: normal Integumentary: normal Extremities: no cyanosis normal mental status mood appropriate Results - Laboratory Findings CBC and BMP: 03/21/17 04:31 03/21/17 04:31 PT/INR, D-dimer PT 13.1 Seconds (9.4-12.1) H 03/19/17 13:49 Abnormal lab findings: Abnormal lab results Hgb 12.5 g/dL (12.9-16.9) L 03/21/17 04:31 MCH 27.2 pg (28.0-33.3) L 03/21/17 04:31 MCHC 31.3 g/dL (31.6-35.5) L 03/21/17 04:31 RDW 17.2 % (11.5-14.5) H 03/21/17 04:31 PT 13.1 Seconds (9.4-12.1) H 03/19/17 13:49 Est GFR (Non-Af Amer) 58 (> 60) L 03/21/17 04:31 POC Glucose 137 (58-89) H 03/18/17 20:47 B-Natriuretic Peptide 244 pg/mL (0-100) H 03/14/17 08:20 - Clinical Findings Intake & Output: Intake & Output 03/21/17 03/22/17 03/22/17 23:59 07:59 15:59 Intake Total 250 / 250 150 / 150 480 / 480 Output Total 450 / 450 400 / 400 200 / 200 Balance -200 / -200 -250 / -250 280 / 280 Weight 98.7 kg - VTE Documentation of Mechanical Device: Graduated compression elastic hosiery Consult Discharge Plan - Plan Referrals: Yun Novak MD [Primary Care Provider] - 03/23/17 9:20 am (Please follow up as schedule...) Prescriptions: Azithromycin [Zithromax Tri-Edgar] 500 mg PO DAILY #2 tablet Cefdinir [Omnicef] 300 mg PO BID #8 capsule
--- NOTE | 2017-03-22 16:32 | Internal Med Progress Note ---
Date of Encounter: 03/22/17 Time of Encounter: 10:00 - Assessment and plan (1) CHF (congestive heart failure) Current Visit: Yes Status: Chronic Assessment and plan: Euvolemic on exam, continue home meds. Cont lasix po Qualifiers: Congestive heart failure type: diastolic Congestive heart failure chronicity: chronic Qualified Code(s): I50.32 - Chronic diastolic (congestive ) heart failure (2) CKD (chronic kidney disease) stage 3, GFR 30-59 ml/min Current Visit: Yes Status: Chronic Assessment and plan: CR and GFR stable and at baseline (3) Sleep apnea Current Visit: Yes Status: Chronic Assessment and plan: Ensure CPAP at night Qualifiers: Sleep apnea type: unspecified type Qualified Code(s): G47.30 - Sleep apnea , unspecified (4) Hypertension Current Visit: Yes Status: Chronic Assessment and plan: Controlled on current medications, continue same Qualifiers: Hypertension type: essential hypertension Qualified Code(s): I10 - Essential (primary) hypertension (5) DVT prophylaxis Current Visit: No Status: Acute Assessment and plan: Heparin subcutaneously (6) Hypothyroid Current Visit: Yes Status: Chronic Assessment and plan: Continue home dose of levothyroxine Clinically euthyroid Qualifiers: Hypothyroidism type: unspecified Qualified Code(s): E03.9 - Hypothyroidism , unspecified (7) Pneumonia Current Visit: Yes Status: Acute Assessment and plan: Clinically improved but still cough. CT chest no significant change. Finished the antibiotic treatment course. Pulmonology consult appreciated, plan for diagnostic bronchoscope. Qualifiers: Pneumonia type: due to unspecified organism Laterality: right Lung location: upper lobe of lung Qualified Code(s): J18.1 - Lobar pneumonia, unspecified organism (8) CAD (coronary artery disease) Current Visit: Yes Status: Chronic Assessment and plan: s/p [facility] with stent 12/2015, continue home meds Qualifiers: Coronary Disease-Associated Artery/Lesion type: [place] artery [place] vs. transplanted heart: [place] heart Associated angina: angina presence unspecified Qualified Code(s): I25.10 - Atherosclerotic heart disease of [place] coronary artery without angina pectoris (9) Valvular disease Current Visit: Yes Status: Acute Assessment and plan: Patient had surgery and follow up with [facility]. Recommended to control heart rate lower than 90. Patient will further follow-up as outpatient. Increase metoprolol CD to 150mg b/o HR is high (10) Pulmonary hypertension Current Visit: Yes Status: Chronic Assessment and plan: Probably due to severe mitral stenosis. Continue oxygen therapy to avoid hypoxia. Pulmonology consult appreciated. (11) Adenopathy Current Visit: Yes Status: Acute Assessment and plan: Intra-abdominal and the left inguinal area adenopathy revealed by CT. Biopsy done by interventional radiology. Hematology consult and pathology pending. - Time Spent With Patient 25 - 35 minutes - Subjective Interval history: Patient is a 72-year-old male admitted for community-acquired pneumonia. His past medical history is significant for CHF, diabetes, hypertension, CKD. Patient was seen and examined. He still has mild to moderate cough. Denies shortness of breath or chest pain. Still has exertional SOB. Vitals are stable. Need oxygen to maintain oxygen saturation. qualified home oxygen. Pulmonology consult appreciated, plan for diagnostic bronchoscopy tomorrow. Pt has finished a seven-day Rocephin course. - Constitutional Vitals: Temp Pulse Resp BP Pulse Ox 98.5 F 93 16 101/63 96 03/22/17 12:00 03/22/17 12:00 03/22/17 15:33 03/22/17 12:00 03/22/17 15:33 General appearance: Present: mild distress, A&O X 3, pleasant - Head Head exam: Present: atraumatic, normocephalic - Eye Eye exam: Present: PERRL, conjuntiva pink, sclera anicteric Pupils: Present: PERRL - Neck Neck exam general surgery: Present: supple, trachea midline. Absent: lymphadenopathy - Respiratory Respiratory exam: Present: CTAB. Absent: accessory muscle use, rales, rhonchi, wheezes - Cardiovascular Cardiovascular exam: Present: RRR, +S1, +S2. Absent: diastolic murmur, gallop, rubs, systolic murmur - GI/Abdominal GI/Abdominal exam: Present: normal bowel sounds, soft, no peritoneal signs. Absent: distended, tenderness - Extremities Exam Extremities exam: Present: warm, radial pulses palpable and symetrical. Absent : calf tenderness, cyanotic, pedal edema - Neurological Exam Neurological exam: Present: CN II-XII intact, oriented X3, no focal deficits. Absent: pronater drift, facial droop, speech deficit - Skin Skin exam: Present: dry, intact Internal Medicine: Result - Labs CBC & Chem 7: 03/21/17 04:31 03/21/17 04:31 - ABG Interpretation ABG results: PT/INR, D-dimer PT 13.1 Seconds (9.4-12.1) H 03/19/17 13:49 - VTE Documentation of Mechanical Device: Graduated compression elastic hosiery Consult Discharge Plan - Plan Referrals: Yun Novak MD [Primary Care Provider] - 03/23/17 9:20 am (Please follow up as schedule...) Prescriptions: Azithromycin [Zithromax Tri-Edgar] 500 mg PO DAILY #2 tablet Cefdinir [Omnicef] 300 mg PO BID #8 capsule
[2017-03-23 03:42] LABS: Basophils % 0.5 %; Eosinophils # 0.2 K/mcL (0.0-0.6); Eosinophils % 2.2 %; Hematocrit 36.7 % (37.5-50.1); Hemoglobin 11.5 g/dL (12.9-16.9); Immature Granulocytes % 0.4 % (0-4); Lymphocytes # 3.5 K/mcL (0.6-4.6); Mean Corpuscular HGB Conc 31.3 g/dL (31.6-35.5); Mean Corpuscular Hemoglobin 27.3 pg (28.0-33.3); Mean Platelet Volume 9.9 fL (9.4-12.4); Monocytes # 0.6 K/mcL (0.0-1.3); Monocytes % 7.2 %; Neutrophils # 4.1 K/mcL (1.6-8.9); Platelet Count 205 K/mcL (140-400); Red Blood Count 4.22 M/mcL (4.19-5.50); Red Cell Distribution Width 17.3 % (11.5-14.5); Segmented Neutrophils % 48.7 %
[2017-03-23] MEDS: Ipratropium/Albuterol Neb 3 ML IH SCH ×4 (04:07→22:01)
[2017-03-23 05:09] LABS: BUN/Creatinine Ratio 19 (6-26); Blood Urea Nitrogen 26 mg/dL (8-26); Calcium 9.6 mg/dL (8.6-10.8); Carbon Dioxide 25 mEq/L (19-29); Chloride 105 mEq/L (98-109); Glucose 95 mg/dL (70-99); Osmolality,Calculated 295 (280-300); Sodium 140 mEq/L (136-145); eGFR For African Americans > 60 (> 60); eGFR For Non-African Americans 52 (> 60)
[2017-03-23] MEDS: Furosemide 40 MG TABLET PO SCH (09:00)
[2017-03-23] MEDS: Metoprolol XL (24 HR) Succ 50 MG TAB.ER.24H PO SCH (09:00)
[2017-03-23] MEDS: Magnesium Oxide 400 MG TABLET PO SCH ×3 (09:00→20:49)
[2017-03-23] MEDS: *HR* Heparin 5,000 UNIT/ML VIAL SQ SCH ×3 (09:01→23:53)
[2017-03-23] MEDS: Budesonide/Formoterol 160/4.5 MDI IH SCH ×2 (10:56→22:01)
[2017-03-23] MEDS ORDERED: Lidocaine Viscous Oral Soln 15 ML SOLUTION ONE (15:03)
[2017-03-23] MEDS ORDERED: *HR* Midazolam HCl 5 MG/5 ML VIAL IVP ONE (15:03)
[2017-03-23] MEDS ORDERED: *HR* FentaNYL (PF) 100 MCG/2 ML VIAL ONE (15:03)
--- NOTE | 2017-03-23 15:15 | Pre-Sedation Evaluation ---
Pre-sedation evaluation - Pre-sedation checklist Date of procedure: 03/23/17 Procedure: Bronchoscopy Recent Vitals: Last Vital Signs Temp 97.8 F 03/23/17 14:59 Pulse 84 03/23/17 14:59 Resp 18 03/23/17 14:59 BP 112/65 03/23/17 14:59 Pulse Ox 94 03/23/17 14:59 H&P (including ROS) documented in medical record: Yes Previous reaction to sedatives/anesthetics: No Dietary Status: NPO after Midnight Dentition: dentures removed Possible difficult airway: No ASA Classification *see protocol: CLASS II-Mild systemic disease
[2017-03-23] MEDS ORDERED: Ipratropium/Albuterol Neb 3 ML IH ONE (15:44)
[2017-03-23] MEDS ORDERED: *HR* FentaNYL (PF) 100 MCG/2 ML VIAL IVP PRN (15:44)
[2017-03-23] MEDS ORDERED: *HR* Midazolam HCl 5 MG/5 ML VIAL IVP PRN (15:44)
[2017-03-23] MEDS ORDERED: Lidocaine Viscous Oral Soln 15 ML SOLUTION MM ONE (15:44)
[2017-03-23] MEDS ORDERED: 0.9 % Sodium Chloride 500 ML IVC SCH (15:45)
--- NOTE | 2017-03-23 17:25 | Internal Med Progress Note ---
Date of Encounter: 03/23/17 Time of Encounter: 09:00 - Assessment and plan (1) CHF (congestive heart failure) Current Visit: Yes Status: Chronic Assessment and plan: Euvolemic on exam, continue home meds. Cont lasix po Qualifiers: Congestive heart failure type: diastolic Congestive heart failure chronicity: chronic Qualified Code(s): I50.32 - Chronic diastolic (congestive ) heart failure (2) CKD (chronic kidney disease) stage 3, GFR 30-59 ml/min Current Visit: Yes Status: Chronic Assessment and plan: Cr and GFR stable and at baseline (3) Sleep apnea Current Visit: Yes Status: Chronic Assessment and plan: Ensure CPAP at night Qualifiers: Sleep apnea type: unspecified type Qualified Code(s): G47.30 - Sleep apnea , unspecified (4) Hypertension Current Visit: Yes Status: Chronic Assessment and plan: Controlled on current medications, continue same Qualifiers: Hypertension type: essential hypertension Qualified Code(s): I10 - Essential (primary) hypertension (5) DVT prophylaxis Current Visit: No Status: Acute Assessment and plan: Heparin subcutaneously (6) Hypothyroid Current Visit: Yes Status: Chronic Assessment and plan: Continue home dose of levothyroxine Clinically euthyroid Qualifiers: Hypothyroidism type: unspecified Qualified Code(s): E03.9 - Hypothyroidism , unspecified (7) Pneumonia Current Visit: Yes Status: Acute Assessment and plan: Clinically improved but still cough. CT chest no significant change. Finished the antibiotic treatment course. Pulmonology consult appreciated, diagnostic bronchoscope done, BALF sent. Quantiferin test sent, result pending. Qualifiers: Pneumonia type: due to unspecified organism Laterality: right Lung location: upper lobe of lung Qualified Code(s): J18.1 - Lobar pneumonia, unspecified organism (8) CAD (coronary artery disease) Current Visit: Yes Status: Chronic Assessment and plan: s/p [facility] with stent 12/2015, continue home meds Qualifiers: Coronary Disease-Associated Artery/Lesion type: [place] artery [place] vs. transplanted heart: [place] heart Associated angina: angina presence unspecified Qualified Code(s): I25.10 - Atherosclerotic heart disease of [place] coronary artery without angina pectoris (9) Valvular disease Current Visit: Yes Status: Acute Assessment and plan: Patient had surgery and follow up with [facility]. Recommended to control heart rate lower than 90. Patient will further follow-up as outpatient. Increase metoprolol CD to 150mg b/o HR is high (10) Pulmonary hypertension Current Visit: Yes Status: Chronic Assessment and plan: Probably due to severe mitral stenosis. Continue oxygen therapy to avoid hypoxia. Pulmonology consult appreciated. (11) Adenopathy Current Visit: Yes Status: Acute Assessment and plan: Intra-abdominal and the left inguinal area adenopathy revealed by CT. Biopsy done by interventional radiology. Hematology consult. pathology shows Mantle cell lymphoma. - Time Spent With Patient 25 - 35 minutes - Subjective Interval history: Patient is a 72-year-old male admitted for community-acquired pneumonia. His past medical history is significant for CHF, diabetes, hypertension, CKD. Patient was seen and examined. He still has mild to moderate cough. Still has exertional SOB. No change with the cough and exertional SOB. Vitals are stable. Need oxygen to maintain oxygen saturation. Pulmonology consult appreciated, had diagnostic bronchoscopy today and BALF collected and sent to lab. - Constitutional Vitals: Temp Pulse Resp BP Pulse Ox 97.8 F 88 18 129/72 97 03/23/17 14:59 03/23/17 15:50 03/23/17 15:50 03/23/17 15:50 03/23/17 15:50 General appearance: Present: mild distress, A&O X 3, pleasant - Head Head exam: Present: atraumatic, normocephalic - Eye Eye exam: Present: PERRL, conjuntiva pink, sclera anicteric Pupils: Present: PERRL - Neck Neck exam general surgery: Present: supple, trachea midline. Absent: lymphadenopathy - Respiratory Respiratory exam: Present: CTAB. Absent: accessory muscle use, rales, rhonchi, wheezes - Cardiovascular Cardiovascular exam: Present: RRR, +S1, +S2. Absent: diastolic murmur, gallop, rubs, systolic murmur - GI/Abdominal GI/Abdominal exam: Present: normal bowel sounds, soft, no peritoneal signs. Absent: distended, tenderness - Extremities Exam Extremities exam: Present: warm, radial pulses palpable and symetrical. Absent : calf tenderness, cyanotic, pedal edema - Neurological Exam Neurological exam: Present: CN II-XII intact, oriented X3, no focal deficits. Absent: pronater drift, facial droop, speech deficit - Skin Skin exam: Present: dry, intact Internal Medicine: Result - Labs CBC & Chem 7: 03/23/17 03:15 03/23/17 04:47 Labs: Short CBC 03/23/17 Range/Units 03:15 WBC 8.5 (4.3-11.1) K/mcL Hgb 11.5 L (12.9-16.9) g/dL Hct 36.7 L (37.5-50.1) % Plt Count 205 (140-400) K/mcL Neutrophils # 4.1 (1.6-8.9) K/mcL BMP 03/23/17 04:47 Sodium 140 Potassium 4.0 Chloride 105 Carbon Dioxide 25 BUN 26 Creatinine 1.34 H Glucose 95 Calcium 9.6 - ABG Interpretation ABG results: PT/INR, D-dimer PT 13.1 Seconds (9.4-12.1) H 03/19/17 13:49 - VTE Documentation of Mechanical Device: Graduated compression elastic hosiery Consult Discharge Plan - Plan Referrals: Yun Novak MD [Primary Care Provider] - 04/01/17 9:20 am (Please follow up as schedule...) Prescriptions: Azithromycin [Zithromax Tri-Edgar] 500 mg PO DAILY #2 tablet Cefdinir [Omnicef] 300 mg PO BID #8 capsule
[2017-03-23 18:43] LABS: Appearance of Body Fluid Hazy (Clear); Source of Body Fluid RUL Posterior Segmen; Volume of Body Fluid 28 mL
[2017-03-24] MEDS: Ipratropium/Albuterol Neb 3 ML IH SCH ×2 (04:19→10:26)
[2017-03-24 06:45] LABS: Basophils % 0.5 %; Eosinophils # 0.2 K/mcL (0.0-0.6); Eosinophils % 2.2 %; Hematocrit 37.3 % (37.5-50.1); Hemoglobin 11.8 g/dL (12.9-16.9); Immature Granulocytes % 0.4 % (0-4); Lymphocytes # 2.6 K/mcL (0.6-4.6); Lymphocytes % 31.6 %; Mean Corpuscular HGB Conc 31.6 g/dL (31.6-35.5); Mean Corpuscular Hemoglobin 27.5 pg (28.0-33.3); Mean Corpuscular Volume 86.9 fL (83.0-100.0); Mean Platelet Volume 9.9 fL (9.4-12.4); Monocytes # 0.6 K/mcL (0.0-1.3); Monocytes % 7.6 %; Neutrophils # 4.7 K/mcL (1.6-8.9); Platelet Count 182 K/mcL (140-400); Red Blood Count 4.29 M/mcL (4.19-5.50); Red Cell Distribution Width 17.2 % (11.5-14.5); Segmented Neutrophils % 57.7 %
[2017-03-24 06:55] LABS: BUN/Creatinine Ratio 21 (6-26); Blood Urea Nitrogen 28 mg/dL (8-26); Calcium 9.6 mg/dL (8.6-10.8); Carbon Dioxide 27 mEq/L (19-29); Chloride 105 mEq/L (98-109); Glucose 91 mg/dL (70-99); Osmolality,Calculated 295 (280-300); Potassium 4.2 mEq/L (3.5-4.5); Sodium 140 mEq/L (136-145); eGFR For African Americans > 60 (> 60); eGFR For Non-African Americans 51 (> 60)
--- NOTE | 2017-03-24 08:05 | Pulmonology Progress Note ---
Date of Encounter: 03/24/17 Time of Encounter: 07:56 Assessment and Plan (1) Pneumonia Current Visit: Yes Status: Acute Status post bronchoscopy with bronchoalveolar lavage of the posterior segment of the right upper lobe. Await culture results. I will arrange for the patient to follow-up with the [facility] after discharge to review results of bronchoscopy. Qualifiers: Pneumonia type: due to unspecified organism Laterality: right Lung location: upper lobe of lung Qualified Code(s): J18.1 - Lobar pneumonia, unspecified organism (2) Hypoxia Current Visit: Yes Status: Acute I suspect hypoxia is due in large part to pulmonary hypertension related to valvular heart disease. Wean O2 via nasal cannula for a goal oxygen saturation of 88% or greater. I recommended the patient be evaluated for home oxygen prior to discharge. He is not a candidate for vasodilator therapy for his pulmonary hypertension. No further recommendations from a pulmonary standpoint. Okay for discharge from my standpoint. Please call with questions. Subjective Principal diagnosis: Right upper lobe pneumonia Interval history: Tolerated bronchoscopy well yesterday. No dyspnea at rest. Cough persists but no sputum production in the past 24 hours. Objective PUL Vital signs: Last Vital Signs Temp 98.4 F 03/24/17 07:21 Pulse 76 03/24/17 07:21 Resp 17 03/24/17 07:21 BP 108/66 03/24/17 07:21 Pulse Ox 98 03/24/17 07:21 General: no acute distress Eyes: nonicteric ENT: oropharynx moist Neck: supple, no lymphadenopathy Lungs: Clear to auscultation bilaterally Cardiovascular: regular rate and rhythm Gastrointestinal: normoactive bowel sounds, soft, non-tender, non-distended Integumentary: normal Extremities: no cyanosis, no edema Musculoskeletal: no deformities Neuro: normal mental status, non-focal exam Psych: mood appropriate, affect normal Results - Laboratory Findings CBC and BMP: 03/24/17 06:38 03/24/17 06:38 PT/INR, D-dimer PT 13.1 Seconds (9.4-12.1) H 03/19/17 13:49 Abnormal lab findings: Abnormal lab results Hgb 11.8 g/dL (12.9-16.9) L 03/24/17 06:38 Hct 37.3 % (37.5-50.1) L 03/24/17 06:38 MCH 27.5 pg (28.0-33.3) L 03/24/17 06:38 RDW 17.2 % (11.5-14.5) H 03/24/17 06:38 PT 13.1 Seconds (9.4-12.1) H 03/19/17 13:49 BUN 28 mg/dL (8-26) H 03/24/17 06:38 Creatinine 1.36 mg/dL (0.72-1.25) H 03/24/17 06:38 Est GFR (Non-Af Amer) 51 (> 60) L 03/24/17 06:38 B-Natriuretic Peptide 244 pg/mL (0-100) H 03/14/17 08:20 Fluid Appearance Hazy (Clear) A 03/23/17 17:03 - Clinical Findings Intake & Output: Intake & Output 03/23/17 03/23/17 03/24/17 15:59 23:59 07:59 Weight 97.069 kg - VTE Documentation of Mechanical Device: Graduated compression elastic hosiery Consult Discharge Plan - Plan Referrals: Yun Novak MD [Primary Care Provider] - 04/01/17 9:20 am (Please follow up as schedule...) Prescriptions: Azithromycin [Zithromax Tri-Edgar] 500 mg PO DAILY #2 tablet Cefdinir [Omnicef] 300 mg PO BID #8 capsule
[2017-03-24] MEDS: Magnesium Oxide 400 MG TABLET PO SCH ×2 (09:11→14:23)
[2017-03-24] MEDS: Metoprolol XL (24 HR) Succ 50 MG TAB.ER.24H PO SCH (09:12)
[2017-03-24] MEDS: *HR* Heparin 5,000 UNIT/ML VIAL SQ SCH (09:12)
[2017-03-24] MEDS: Furosemide 40 MG TABLET PO SCH (09:12)
[2017-03-24] MEDS: Budesonide/Formoterol 160/4.5 MDI IH SCH (10:26)
[2017-03-24 11:43] VITALS: BP 113/70
--- NOTE | 2017-03-24 14:16 | Discharge Summary ---
Date of Encounter: 03/24/17 Time of Encounter: 13:00 - Discharge Diagnosis (1) CHF (congestive heart failure) Priority: Secondary Status: Chronic Qualifiers: Congestive heart failure type: diastolic Congestive heart failure chronicity: chronic Qualified Code(s): I50.32 - Chronic diastolic (congestive ) heart failure (2) CKD (chronic kidney disease) stage 3, GFR 30-59 ml/min Priority: Secondary Status: Chronic (3) Sleep apnea Priority: Secondary Status: Chronic Qualifiers: Sleep apnea type: unspecified type Qualified Code(s): G47.30 - Sleep apnea , unspecified (4) Hypertension Priority: Secondary Status: Chronic Qualifiers: Hypertension type: essential hypertension Qualified Code(s): I10 - Essential (primary) hypertension (5) DVT prophylaxis Priority: Secondary Status: Acute (6) Hypothyroid Priority: Secondary Status: Chronic Qualifiers: Hypothyroidism type: unspecified Qualified Code(s): E03.9 - Hypothyroidism , unspecified (7) Pneumonia Priority: Primary Status: Acute Qualifiers: Pneumonia type: due to Pneumococcus Laterality: right Lung location: upper lobe of lung Qualified Code(s): J13 - Pneumonia due to Streptococcus pneumoniae (8) CAD (coronary artery disease) Priority: Secondary Status: Chronic Qualifiers: Coronary Disease-Associated Artery/Lesion type: [place] artery [place] vs. transplanted heart: [place] heart Associated angina: angina presence unspecified Qualified Code(s): I25.10 - Atherosclerotic heart disease of [place] coronary artery without angina pectoris (9) Valvular disease Priority: Secondary Status: Chronic (10) Pulmonary hypertension Priority: Secondary Status: Chronic (11) Adenopathy Priority: Primary Status: Acute - Discharge Medications Prescriptions: Azithromycin [Zithromax Tri-Edgar] 500 mg PO DAILY #2 tablet Budesonide/Formoterol 160/4.5 [Symbicort 160/4.5] 2 puff IH BIDR #2 inhaler Cefdinir [Omnicef] 300 mg PO BID #8 capsule Metoprolol XL (24 HR) Succ [Toprol Xl] 150 mg PO QAM #90 tab.er.24h Home Medications: Levothyroxine Sodium [Synthroid] 137 mcg PO QAM 07/31/15 [History] Magnesium Oxide [Mag-Ox] 400 mg PO TID 07/31/15 [History] Solifenacin Succinate [Vesicare] 10 mg PO QAM 07/31/15 [History] Tamsulosin [Flomax] 0.4 mg PO DAILY 07/31/15 [History] Eletriptan HBr [Relpax] 20 mg PO DAILY PRN 03/18/16 [History] Furosemide [Lasix] 40 mg PO DAILY 03/18/16 [History] Lisinopril [Zestril] 5 mg PO DAILY 03/09/17 [History] Allopurinol [Zyloprim 300 MG] 300 mg PO DAILY 03/14/17 [History] Atorvastatin [Lipitor] 40 mg PO DAILY 03/14/17 [History] Clopidogrel [Plavix] 75 mg PO DAILY 03/14/17 [History] Omeprazole [PriLOSEC] 40 mg PO DAILY 03/14/17 [History] Azithromycin [Zithromax Tri-Edgar] 500 mg PO DAILY #2 tablet 03/16/17 [Rx] Cefdinir [Omnicef] 300 mg PO BID #8 capsule 03/16/17 [Rx] Budesonide/Formoterol 160/4.5 [Symbicort 160/4.5] 2 puff IH BIDR #2 inhaler [Rx] Metoprolol XL (24 HR) Succ [Toprol Xl] 150 mg PO QAM #90 tab.er.24h 03/24/17 [Rx ] Allergies/Adverse Reactions: Allergies Oxycodone Adverse Reaction (Mild, Verified 03/14/17 09:35) Itching rash/ but states he is not sure that is what caused it - Notes to Outpatient Provider 1. Pt's home med has been adjusted: Metoprolol XL has been increased to 150mg po daily for better HR control, Add symbicort IH bid. Date of admission: 03/14/17 11:17 Primary care physician: Yun Novak, Consults: 03/14/17 13:51 Consult to Nutrition [CONS] Routine Comment: Consulting Provider: NUTRITION Reason for Dietary Consult: Other Other:: weight loss 03/19/17 13:21 Consult to Interventional Radiology [CONS] Stat Consulting Provider: Radiology Interventional Cols Reason for Consult: CT guid biopsy. Call Completed: Yes Consult to Oncology [CONS] Routine Consulting Provider: Oncology [facility] Reason for Consult: Enlarged lymph node Call Completed: Yes 03/20/17 10:27 Consult to Pulmonology [CONS] Routine Consulting Provider: [facility] Reason for Consult: Pneumonia, bronchiolitis, pulmonary hypertension Call Completed: Yes 03/20/17 16:46 Consult to Respiratory Therapy [CONS] Routine Reason for Consult: Need induced sputum to check AFB stain in AM Call Completed: No Discharging clinician: Ceci Robles Anticipated date of discharge: 03/24/17 - Patient Status Disposition: Home, Self-Care Condition: Fair Functional capacity at discharge: independent ambulation Overall status at discharge: patient is back to baseline - Discharge Instructions Follow Up With: Yun Novak MD [Primary Care Provider] - 04/01/17 9:20 am (Please follow up as schedule...) Les Nichols MD [Non-Partnered Physician] - 04/01/17 - Diet and Activity Activity: increase activity as tolerated Diet: low fat, low cholesterol, low salt diet Interval History: Mr. Montiel is a 72 year old male with hypertension, chronic kidney disease, coronary artery disease status post stent placement, congestive heart failure, sleep apnea, borderline diabetes who presents to the emergency department today with complaints of shortness of breath. Patient noted productive cough and shortness of breath which began last . He has had chills, sweats, body aches, pain on the right side of his chest with coughing and poor appetite developing since that time. Patient presented to [place] on Thursday was diagnosed with pneumonia and given a prescription for Augmentin. Patient reports he continues to feel short of breath, has not felt any better, and shortness of breath is getting worse. Patient is requiring 3 L of oxygen to maintain saturation above 92%, he does not normally wear oxygen at home. Evaluation in the emergency department included a chest x-ray which showed stable right upper lobe infiltrate. White blood cell count was normal at 8.9. Creatinine of 1.39 was consistent with his baseline and chronic kidney disease. BNP was elevated at 244, however lower than previous results. Troponin was normal at 0.01. On exam, patient alert and oriented, in no acute distress. Heart had regular rate and rhythm. Lungs with right upper chest rales. Patient was mildly diaphoretic. Peripheral pulses intact, no peripheral edema. Hospital course: Mr. Montiel is a 72 year old male admitted for pneumonia. Patient was treated with antibiotics, his shortness of breath has not improved significantly. Pulmonology consult was called and saw patient. Diagnostic bronchoscope has been done. AFB stain negative. Patient was occasionally found abdominal and inguinal lymph nodes enlargement, biopsy has been done, pathology result shows Mantle cell lymphoma. Oncologist consult was called, will arrange outpatient follow-up. Patient is supposed to have a bone biopsy, interventional radiology was called, was told bone biopsy needs sedation and NPO, which cannot be done today. Will arrange outpatient bone biopsy as outpatient by oncology. Patient was seen and examined. His shortness of breath has slightly improved. Qualify for home oxygen. Vitals are stable. We will discharge patient home with home oxygen, he will follow up with PCP, pulmonology, and oncology as outpatient. - Time Spent with Patient Total time spent providing and/or coordinating discharge services: 40 min Greater than 30 minutes - Constitutional Vitals: Temp Pulse Resp BP Pulse Ox 97.7 F 85 18 113/70 97 03/24/17 11:40 03/24/17 11:40 03/24/17 11:40 03/24/17 11:40 03/24/17 12:34 General appearance: Present: mild distress, A&O X 3, pleasant - Head Head exam: Present: atraumatic, normocephalic - Eye Eye exam: Present: PERRL, conjuntiva pink, sclera anicteric Pupils: Present: PERRL - Neck Neck exam general surgery: Present: supple, trachea midline. Absent: lymphadenopathy - Respiratory Respiratory exam: Present: CTAB. Absent: accessory muscle use, rales, rhonchi, wheezes - Cardiovascular Cardiovascular exam: Present: RRR, +S1, +S2. Absent: diastolic murmur, gallop, rubs, systolic murmur - GI/Abdominal GI/Abdominal exam: Present: normal bowel sounds, soft, no peritoneal signs. Absent: distended, tenderness - Extremities Exam Extremities exam: Present: warm, radial pulses palpable and symetrical. Absent : calf tenderness, cyanotic, pedal edema - Neurological Exam Neurological exam: Present: CN II-XII intact, oriented X3, no focal deficits. Absent: pronater drift, facial droop, speech deficit - Skin Skin exam: Present: dry, intact - VTE Documentation of Mechanical Device: Graduated compression elastic hosiery
[2017-03-24 14:32] LABS: Uric Acid 6.5 mg/dL (3.5-7.2)
[2017-03-24 14:51] LABS: Hepatitis B Surface Antigen Nonreactive (Nonreactive)
--- NOTE | 2017-03-24 16:48 | Event Note ---
Date of Encounter: 03/24/17 Time of Encounter: 14:00 Patient was seen. Given information regarding lymphoma and appointment to f/u with Dr Adler. Will await lab results for further treatment decisions. Will schedule patient for out patient bone marrow study.
[2017-03-25 00:10] LABS: A.galactomannan Ag Index 0.05
[2017-03-25 11:30] LABS: Hepatitis A Antibody IgM Nonreactive (Nonreactive); Hepatitis B Core IgM Nonreactive (Nonreactive); Hepatitis C Virus Antibody Nonreactive (Nonreactive)
[2017-03-25 13:29] LABS: QuantiFERON Mitogen minus NIL 8.39 IU/mL
[2017-03-25 16:28] LABS: QuantiFERON-TB Gold In-Tube NEGATIVE (Negative)
[2017-03-26 13:26] LABS: RVP Body Fluid Source BAL
[2017-03-26 14:26] LABS: Influenza A PCR Body Fluid NOT DETECTED; Influenza B PCR Body Fluid NOT DETECTED; RSV PCR Body Fluid NOT DETECTED
[2017-03-27 03:56] LABS: Kappa Qnt Free Light Chains 2.03 mg/dL (0.33-1.94); Lambda Qnt Free Light Chains 1.59 mg/dL (0.57-2.63)
[2017-03-27 07:51] LABS: Alpha 2 Globulin (PEP) 0.82 g/dL (0.48-1.05); Beta Globulin (PEP) 0.81 g/dL (0.48-1.10)
[2017-03-27 14:43] LABS: IFE Reflexed NOT DONE
== END 2017-03-24 15:24 | disposition home or self-care (01) | DRG 167 ==
LOC: 2ANU 07:51 → EMEROO 07:51 → SUATTDRO 11:17 → 2ANU 13:03
PROVIDERS: ADMIT Nurse Practitioner Family; ATTEND Internal Medicine

== ENCOUNTER 2017-07-10 10:03 | Inpatient (IN) ==
--- NOTE | 2017-07-10 11:02 | Emergency Department Note ---
Disposition Clinical Impression: Shortness of breath, Hypoxia Disposition: Admitted As Inpatient Condition: Good SOB HPI - General Chief Complaint: ED Shortness of Breath/Dyspnea Stated Complaint: ALLIE Time Seen by Provider: 07/10/17 10:20 Source: patient Limitations: no limitations Nursing Notes Reviewed: Yes Vital Signs Reviewed: Yes - History of Present Illness The patient is a 72-year-old male with the past medical history of congestive heart failure, hypertension, and 2 stents placed in his heart who presents with shortness of breath. He denies any history of DVT or pulmonary embolism. States that he has shortness of breath for a few months but today it worsened with exertion. He also admits some pain with deep inhalation. Patient states that it improves with the rest. He denies any history of COPD or any lung disease. He admits that he was admitted for pneumonia this past February and was discharged with oxygen. He used oxygen for his shortness of breath without any improvement today. Admits associated bilateral arms and bilateral leg weaknesses heard today. He states that his arms and legs felt very heavy today as he walked and became short of breath but weaknesses is improved currently. He also admits chills and a temperature of 100.4 four days ago, which broke when he took a Tylenol. He denies headache, vision changes, chest pain, abdominal pain, constipation, diarrhea, blood in the stool, blood in his urine, and numbness or tingling. - Related Data Home Medications Medication Instructions Recorded Confirmed Levothyroxine Sodium [Synthroid] 137 mcg PO QAM 07/31/15 07/10/17 Magnesium Oxide [Mag-Ox] 400 mg PO TID 07/31/15 07/10/17 Solifenacin Succinate [Vesicare] 10 mg PO QAM 07/31/15 07/10/17 Tamsulosin [Flomax] 0.4 mg PO DAILY 07/31/15 07/10/17 Eletriptan HBr [Relpax] 20 mg PO DAILY PRN 03/18/16 07/10/17 Furosemide [Lasix] 40 mg PO DAILY 03/18/16 07/10/17 Allopurinol [Zyloprim 300 MG] 300 mg PO DAILY 03/14/17 07/10/17 Atorvastatin [Lipitor] 40 mg PO DAILY 03/14/17 07/10/17 Omeprazole [PriLOSEC] 40 mg PO DAILY 03/14/17 07/10/17 Lisinopril [Lisinopril] 2.5 mg PO DAILY 07/10/17 07/10/17 Previous Rx's Medication Instructions Recorded Metoprolol XL (24 HR) Succ [Toprol 150 mg PO QAM #90 tab.er.24h 03/24/17 Xl] Lidocaine/Prilocaine [Emla] 1 appl TP AD #30 gm 05/01/17 Allergies Allergy/AdvReac Type Severity Reaction Status Date / Time Oxycodone AdvReac Mild BLE Verified 06/10/17 08:57 RASH/EFFECTED AMBULATION All systems ED: reviewed and negative except as stated. Review of Systems: As Per HPI Constitutional: Reports: fever, chills, weakness (Admits weakness in his upper and lower extremities bilaterally that started today) Eyes: Denies: eye pain, vision change Cardiovascular: Denies: chest pain, palpitations Respiratory: Reports: dyspnea (dyspnea worse with exertion and improves with rest). Denies: cough, wheezes, hemoptysis Gastrointestinal: Denies: abdominal pain, nausea, vomiting Genitourinary: Denies: urgency, dysuria, hematuria Musculoskeletal: Denies: back pain, neck pain Neurological: Reports: weakness (weakness in his arms and legs). Denies: headache, numbness Past Medical History - Past Medical History Medical history: Reports: cancer, CHF, diabetes, GERD, hepatitis, hypertension, migraine, renal disease, thyroid disease, valvular heart disease, other Surgical history: Reports: angioplasty/stent, knee replacement, orthopedic, other, other Psychiatric history: Reports: anxiety, depression - Social History Smoking Status: Never smoker Smokeless Tobacco Status: No Alcohol use: Reports: none Drug use: Reports: none Physical Exam CONSTITUTIONAL: Alert and oriented X3, well-nourished, well appearing, in no apparent distress HEAD: Normocephalic; atraumatic. EYES: PERRL, no scleral icterus. NOSE: The nose is normal in appearance without rhinorrhea RESP: Normal chest excursion with respiration; breath sounds clear and equal bilaterally; no wheezes, rhonchi, or rales CARD: Regular rhythm, without murmurs, rub or gallop ABD: Non-distended; non-tender, soft,without rigidity, rebound or guarding SKIN: Normal for age and race; warm and dry; no apparent lesions. Back inspection showed seborrhoeic keratosis present. No ecchymosis, bleeding, or abrasions. NEUROLOGICAL: Patient is alert and oriented times three. Sensory and motor functions are intact. Strength is 5/5 for flexion and extension in all 4 extremities. Patellar DTRS are equal and intact. Distal pulses +2/4 bilaterally. - General Limitations: no limitations General appearance: alert, in no apparent distress - Rectal Exam Cut Off Saw Set Up Operator present during exam: Yes Rectal exam: Present: heme (+) stool, other (guaic mildly positive). Absent: black stool, bloody stool Course Vital Signs Temperature 98.6 F 07/10/17 10:04 Pulse Rate 115 07/10/17 10:04 Respiratory Rate 24 07/10/17 10:04 Blood Pressure 108/69 07/10/17 10:04 O2 Sat by Pulse Oximetry 91 07/10/17 10:04 Temperature 98 F 07/11/17 07:18 Pulse Rate 97 07/11/17 07:18 Respiratory Rate 16 07/11/17 07:18 Blood Pressure 144/87 07/11/17 07:18 O2 Sat by Pulse Oximetry 96 07/11/17 07:18 Oxygen Delivery Oxygen Delivery Room Air Shortness of Breath/Dyspnea - MDM Narrative Medical decision making narrative: Patient was tachycardic at 115 and O2 saturation was 91% on 2.5 L of oxygen on arrival. Most likely secondary to being anxious. I repeated vitals in the room and heart rate was 86 and O2 Sat was 98% on 2L of O2. Labs and imaging are pending for further evaluation of his SOB. 12:01- Reevaluated patient. He states he feels a little better. CXR shows Mild prominence of the interstitial markings bilaterally perhaps slightly increased at the right lung base and Persistent right upper lung patchy opacification. Dimer was elevated so CTA is ordered and HgB is 10.4 so I performed a rectal exam with plastic duplicator. Test was guaic mildy positive. Plan to admit patient for observation. Discussed with patient about admission and he agrees with plan. - Lab Data Result diagrams: 07/11/17 03:35 07/11/17 03:35 Lab Results 07/10/17 07/10/17 07/10/17 Range/Units 10:53 10:53 10:53 WBC 8.8 (4.3-11.1) K/mcL RBC 3.37 L (4.19-5.50) M/mcL Hgb 10.1 L (12.9-16.9) g/dL Hct 30.2 L (37.5-50.1) % MCV 89.6 (83.0-100.0) fL MCH 30.0 (28.0-33.3) pg MCHC 33.4 (31.6-35.5) g/dL RDW 19.7 H (11.5-14.5) % Plt Count 127 L (140-400) K/mcL MPV 10.1 (9.4-12.4) fL Seg Neutrophils % 16.0 % Band Neutrophils % 2.0 (0-4) % Lymphocytes % 72.0 % Monocytes % 2.0 % Eosinophils % 8.0 % Neutrophils # 1.6 (1.6-8.9) K/mcL Lymphocytes # 6.3 H (0.6-4.6) K/mcL Monocytes # 0.2 (0.0-1.3) K/mcL Eosinophils # 0.7 H (0.0-0.6) K/mcL Reactive Lymphocytes Present A (Not Present) Platelet Estimate Slight Decrease L (Normal) D-Dimer 1324 H (0-500) ng/mLFEU Sodium 139 (136-145) mEq/L Potassium 3.5 (3.5-4.5) mEq/L Chloride 105 (98-109) mEq/L Carbon Dioxide 24 (19-29) mEq/L BUN 21 (8-26) mg/dL Creatinine 1.36 H (0.72-1.25) mg/dL Est GFR ( Amer) > 60 (> 60) Est GFR (Non-Af Amer) 51 L (> 60) BUN/Creatinine Ratio 15 (6-26) Glucose 104 H (70-99) mg/dL Calculated Osmolality 291 (280-300) Lactic Acid (0.5-2.2) mmol/L Calcium 8.5 L (8.6-10.8) mg/dL Troponin I (0-0.03) ng/mL B-Natriuretic Peptide (0-100) pg/mL Stool Occult Blood (Negative) 07/10/17 07/10/17 07/10/17 Range/Units 10:53 10:53 10:53 WBC (4.3-11.1) K/mcL RBC (4.19-5.50) M/mcL Hgb (12.9-16.9) g/dL Hct (37.5-50.1) % MCV (83.0-100.0) fL MCH (28.0-33.3) pg MCHC (31.6-35.5) g/dL RDW (11.5-14.5) % Plt Count (140-400) K/mcL MPV (9.4-12.4) fL Seg Neutrophils % % Band Neutrophils % (0-4) % Lymphocytes % % Monocytes % % Eosinophils % % Neutrophils # (1.6-8.9) K/mcL Lymphocytes # (0.6-4.6) K/mcL Monocytes # (0.0-1.3) K/mcL Eosinophils # (0.0-0.6) K/mcL Reactive Lymphocytes (Not Present) Platelet Estimate (Normal) D-Dimer (0-500) ng/mLFEU Sodium (136-145) mEq/L Potassium (3.5-4.5) mEq/L Chloride (98-109) mEq/L Carbon Dioxide (19-29) mEq/L BUN (8-26) mg/dL Creatinine (0.72-1.25) mg/dL Est GFR ( Amer) (> 60) Est GFR (Non-Af Amer) (> 60) BUN/Creatinine Ratio (6-26) Glucose (70-99) mg/dL Calculated Osmolality (280-300) Lactic Acid 1.9 (0.5-2.2) mmol/L Calcium (8.6-10.8) mg/dL Troponin I 0.01 (0-0.03) ng/mL B-Natriuretic Peptide 191 H (0-100) pg/mL Stool Occult Blood (Negative) 07/10/17 Range/Units 11:49 WBC (4.3-11.1) K/mcL RBC (4.19-5.50) M/mcL Hgb (12.9-16.9) g/dL Hct (37.5-50.1) % MCV (83.0-100.0) fL MCH (28.0-33.3) pg MCHC (31.6-35.5) g/dL RDW (11.5-14.5) % Plt Count (140-400) K/mcL MPV (9.4-12.4) fL Seg Neutrophils % % Band Neutrophils % (0-4) % Lymphocytes % % Monocytes % % Eosinophils % % Neutrophils # (1.6-8.9) K/mcL Lymphocytes # (0.6-4.6) K/mcL Monocytes # (0.0-1.3) K/mcL Eosinophils # (0.0-0.6) K/mcL Reactive Lymphocytes (Not Present) Platelet Estimate (Normal) D-Dimer (0-500) ng/mLFEU Sodium (136-145) mEq/L Potassium (3.5-4.5) mEq/L Chloride (98-109) mEq/L Carbon Dioxide (19-29) mEq/L BUN (8-26) mg/dL Creatinine (0.72-1.25) mg/dL Est GFR ( Amer) (> 60) Est GFR (Non-Af Amer) (> 60) BUN/Creatinine Ratio (6-26) Glucose (70-99) mg/dL Calculated Osmolality (280-300) Lactic Acid (0.5-2.2) mmol/L Calcium (8.6-10.8) mg/dL Troponin I (0-0.03) ng/mL B-Natriuretic Peptide (0-100) pg/mL Stool Occult Blood Positive A (Negative) - EKG Data EKG attestation: Yes I reviewed and interpreted this EKG. EKG results narrative: EKG shows sinus rhythm with a rate of 85 beats per minute, WI interval of 200 ms , QRS duration of 112 ms, QT of 386, and QTC of 429. No acute excuse me changes on EKG. No significant changes compared to the EKG dated on 03/14/2017. EKG shows normal: Reports: sinus rhythm Attestation Statement - Attestation Attestation: I, Giovany Mcrae, examined this patient and my medical decision-making was reviewed with the [employer] DISPATCHER/PA/Advanced Practice Nurse/Resident Physician. I agree with the documented findings, disposition and treatment plan as described except to the extent set forth below. 72-year-old male presents to emergency department concerns of difficulty in breathing and fever. Patient states he had a fever last night of 100.4. He has a history of lymphoma which is treated with chemotherapy. Patient states he has had similar symptoms in the past which were diagnosed as pneumonia. Patient tachycardic in the emergency department on the initial evaluation. He had decreased O2 saturation at 91%. No wheezing or rhonchi heard in the lung hua bilaterally. CT of the chest does not show PE. Patient started on antibiotics secondary to history of recent fever. Patient is mildly anemic on laboratory evaluation and had guaiac positive brown stool. Patient will be admitted the hospital for further care and evaluation of his anemia, shortness of breath and possible pneumonia.
[2017-07-10 11:05] LABS: Eosinophils # 0.7 K/mcL (0.0-0.6); Hematocrit 30.2 % (37.5-50.1); Hemoglobin 10.1 g/dL (12.9-16.9); Mean Corpuscular HGB Conc 33.4 g/dL (31.6-35.5); Mean Corpuscular Volume 89.6 fL (83.0-100.0); Mean Platelet Volume 10.1 fL (9.4-12.4); Platelet Count 127 K/mcL (140-400); Red Blood Count 3.37 M/mcL (4.19-5.50); Red Cell Distribution Width 19.7 % (11.5-14.5)
[2017-07-10 11:20] LABS: BUN/Creatinine Ratio 15 (6-26); Blood Urea Nitrogen 21 mg/dL (8-26); Calcium 8.5 mg/dL (8.6-10.8); Carbon Dioxide 24 mEq/L (19-29); Chloride 105 mEq/L (98-109); Glucose 104 mg/dL (70-99); Osmolality,Calculated 291 (280-300); Potassium 3.5 mEq/L (3.5-4.5); Sodium 139 mEq/L (136-145); eGFR For African Americans > 60 (> 60); eGFR For Non-African Americans 51 (> 60)
[2017-07-10] MEDS ORDERED: 0.9 % Sodium Chloride 1,000 ML IVC ONE (11:29)
[2017-07-10 11:50] LABS: Lymphocytes # 6.3 K/mcL (0.6-4.6); Monocytes # 0.2 K/mcL (0.0-1.3); Neutrophils # 1.6 K/mcL (1.6-8.9)
[2017-07-10 11:51] LABS: Reactive Lymphocytes Present (Not Present)
[2017-07-10 11:52] LABS: Platelet Estimate Slight Decrease (Normal)
[2017-07-10] MEDS ORDERED: Aspirin 81 MG TAB.CHEW PO ONE (13:37)
[2017-07-10] MEDS ORDERED: Piperacillin/Tazobactam 3.375 GM in D5% in Water (Mini-Bag+) 100 ML IVPB ONE (13:57)
[2017-07-10] MEDS ORDERED: Vancomycin 1,000 MG in D5% in Water 250 ML IVPB ONE (13:57)
[2017-07-10] MEDS ORDERED: Azithromycin 500 MG in D5% in Water 250 ML IVPB ONE (13:58)
[2017-07-10] MEDS ORDERED: Ondansetron 4 MG/2 ML VIAL IVP PRN (15:46)
[2017-07-10] MEDS ORDERED: Naloxone 0.4 MG/ML INJ IVP PRN (15:46)
[2017-07-10] MEDS ORDERED: (Eletriptan Hbr [Relpax] 20 MG) PO PRN (15:50)
[2017-07-10] MEDS ORDERED: Furosemide 40 MG/4 ML VIAL IVP ONE (15:50)
--- NOTE | 2017-07-10 16:04 | Internal Med History&Physical ---
Date of Encounter: 07/10/17 Time of Encounter: 15:57 Assessment and Plan (1) Acute respiratory distress Current visit: Yes Status: Acute Likely secondary to CHF decompensation last 2D echo from February 2017 reported LVEF Of 60% with mild aortic regurgitation , moderate to severe mitral stenosis will repeat 2D echo pt also reports of not taking his lasix dose as directed O2 supplementation (reports of wearing O2 as needed at home) will start IV lasix monitor I/Os, daily weights fluid restriction diet (1.5L/day) will consider cardiology evaluation as per the echo report pt start chemotherapy after his last echo report Pt received a dose of abx in the ER by the ER physician, no clinical signs of PNA present, CTA chest concerning for pulm edema and no infectious etiology reported. Pt afebrile and no leukocytosis, will monitor off abx. (2) Acute exacerbation of CHF (congestive heart failure) Current visit: Yes Status: Acute as listed above Qualifiers: Congestive heart failure type: unspecified congestive heart failure type Qualified Code(s): I50.9 - Heart failure, unspecified (3) Anemia Current visit: Yes Status: Acute H&H low but acceptable reported to have positive guaiac test in the ER will obtain stool occult will obtain iron studies, ferritin, vit B12, folate closely monitor H&H and transfuse as needed Qualifiers: Anemia type: unspecified type Qualified Code(s): D64.9 - Anemia, unspecified (4) Thrombocytopenia Current visit: Yes Status: Chronic chronic, secondary to underlying Malignancy (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 Adler pt's generalized weakness could be secondary to his underlying malignancy Qualifiers: Lymphoma site: multiple regions Qualified Code(s): C83.18 - Mantle cell lymphoma, lymph nodes of multiple sites (11) Valvular disease Current visit: No Status: Chronic history of moderate to severe mitral stenosis will repeat 2D echo and obtain cardiology evaluation if needed Internal Medicine - H&P: HPI Chief complaint: shortness of breath Admitted From: Home Plans for Post Hospital Care: Home History of present illness: Mr. Montiel is a 72 year old male with PMH of CHF, CAD, CKD, HTN, Mantle cell lymphoma stage IV on chemotherapy, GREG who presented to the hospital for evaluation of worsening shortness of breath and generalized weakness. Pt states he has been having exertional dyspnea for a few weeks now along with generalized weakness, but states that today he couldn't catch his breath even at rest which prompted his visit to the ER. He is currently undergoing chemotherpy and is last cycle was on 06/24/17. He states he feels comfortably at rest at this time and denies any headache, chest pain, shortness of breath, abd pain, n/v, fever, or chills. Pt states he has only been taking lasix once daily even though he was prescribed to take it twice a day. I had a detailed discussion with the patient and his (present at bedside) about patient's advance directives. 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 Past Med Surg Social Fam HX - Past Medical History Medical history: cancer (mantle cell lymphoma ), CHF, diabetes, GERD, hepatitis , hypertension, migraine, renal disease, thyroid disease, valvular heart disease , other Psychiatric history: anxiety, depression - Past Surgical History Surgical History: angioplasty/stent, knee replacement, orthopedic, other, other - Social History Smoking Status: Never smoker Smokeless Tobacco Status: No Alcohol use: none Drug use: none - Family History Father Living Status: Hx Family Cancer: Yes Mother Adopted: No Family Member Ethnicity: Non- Living Status: Hx Family Cardiac Disorders: Yes Hx Family Respiratory Disorders: No Hx Family Cancer: No Hx Family GI Disorders: No Hx Family Endocrine Disorder: No Hx Family Neuromuscular Disorders: No Hx Family Neurologic Disorders: No Hx Family HEENT Disorders: No Hx Family Autoimmune Disorders: No Internal Medicine - H&P: Meds Levothyroxine Sodium [Synthroid] 137 mcg PO QAM 07/31/15 [History] Magnesium Oxide [Mag-Ox] 400 mg PO TID 07/31/15 [History] Solifenacin Succinate [Vesicare] 10 mg PO QAM 07/31/15 [History] Tamsulosin [Flomax] 0.4 mg PO DAILY 07/31/15 [History] Eletriptan HBr [Relpax] 20 mg PO DAILY PRN 03/18/16 [History] Furosemide [Lasix] 40 mg PO DAILY 03/18/16 [History] Allopurinol [Zyloprim 300 MG] 300 mg PO DAILY 03/14/17 [History] Atorvastatin [Lipitor] 40 mg PO DAILY 03/14/17 [History] Omeprazole [PriLOSEC] 40 mg PO DAILY 03/14/17 [History] Metoprolol XL (24 HR) Succ [Toprol Xl] 150 mg PO QAM #90 tab.er.24h 03/24/17 [Rx ] Lidocaine/Prilocaine [Emla] 1 appl TP AD #30 gm 05/01/17 [Rx] Lisinopril [Lisinopril] 2.5 mg PO DAILY 07/10/17 [History] 3 Allergy/AdvReac Type Severity Reaction Status Date / Time Oxycodone AdvReac Mild BLE Verified 06/10/17 08:57 RASH/EFFECTED AMBULATION All Systems PM: A 10-system review of systems was performed and is negative for pertinent findings except as documented above in the HPI. - Constitutional Constitutional: as per HPI - Constitutional Vitals: Temp Pulse Resp BP Pulse Ox 98.6 F 88 16 135/88 98 07/10/17 10:04 07/10/17 12:55 07/10/17 15:30 07/10/17 15:30 07/10/17 12:55 General appearance: Present: cooperative, A&O X 3, pleasant, no acute distress, obese, answers questions appropriately - Head Head exam: Present: atraumatic, normocephalic - Eye Eye exam: Present: conjuntiva pink, sclera anicteric - Respiratory Respiratory exam: Present: rales (bibasilar rales ). Absent: accessory muscle use, respiratory distress, wheezes, tachypnea - Cardiovascular Cardiovascular exam: Present: clicks, RRR, +S1, +S2. Absent: diastolic murmur, gallop, rubs, systolic murmur - GI/Abdominal GI/Abdominal exam: Present: normal bowel sounds, soft, no peritoneal signs. Absent: distended, tenderness - Extremities Exam Extremities exam: Present: pedal edema (1+ pitting edema in b/l LE ), warm, radial pulses palpable and symmetrical. Absent: calf tenderness - Neurological Exam Neurological exam: Present: alert, oriented X3 - Psychiatric Psychiatric exam: Present: normal affect, normal mood Internal Med - H&P Results - Labs CBC & Chem 7: 07/10/17 10:53 07/10/17 10:53
[2017-07-10] MEDS: *HR* Acetylcysteine 20% 600 MG/3 ML ORAL SYRINGE PO SCH ×2 (19:08→20:18)
[2017-07-10] MEDS: Magnesium Oxide 400 MG TABLET PO SCH (20:18)
[2017-07-10] MEDS: Acetaminophen 325 MG TABLET PO PRN (23:56)
[2017-07-11 03:50] LABS: Hematocrit 29.1 % (37.5-50.1); Hemoglobin 9.9 g/dL (12.9-16.9); Mean Corpuscular Hemoglobin 30.7 pg (28.0-33.3); Mean Corpuscular Volume 90.1 fL (83.0-100.0); Mean Platelet Volume 9.3 fL (9.4-12.4); Platelet Count 114 K/mcL (140-400); Red Blood Count 3.23 M/mcL (4.19-5.50); Red Cell Distribution Width 19.3 % (11.5-14.5)
[2017-07-11 04:04] LABS: BUN/Creatinine Ratio 14 (6-26); Blood Urea Nitrogen 19 mg/dL (8-26); Calcium 8.5 mg/dL (8.6-10.8); Carbon Dioxide 26 mEq/L (19-29); Chloride 103 mEq/L (98-109); Glucose 103 mg/dL (70-99); Magnesium 1.2 mg/dL (1.6-2.6); Osmolality,Calculated 291 (280-300); Phosphorous 2.8 mg/dL (2.3-4.7); Potassium 3.4 mEq/L (3.5-4.5); Sodium 139 mEq/L (136-145); eGFR For African Americans > 60 (> 60); eGFR For Non-African Americans 53 (> 60)
[2017-07-11 04:06] LABS: % Iron Saturation 11 % (20-55); Iron 26 mcg/dL (65-175); Transferrin 170 mg/dL (174-364)
[2017-07-11 04:26] LABS: Ferritin 706 ng/ml (22-275)
[2017-07-11 04:48] LABS: Eosinophils # 1.1 K/mcL (0.0-0.6); Lymphocytes # 5.9 K/mcL (0.6-4.6); Monocytes # 1.1 K/mcL (0.0-1.3); Neutrophils # 1.3 K/mcL (1.6-8.9); Platelet Estimate Slight Decrease (Normal); Reactive Lymphocytes Present (Not Present)
[2017-07-11 04:49] LABS: Anisocytosis 1+ (Not Present)
[2017-07-11 05:02] LABS: Folate 12.2 ng/mL (7.0-31.4)
[2017-07-11] MEDS: *HR* Acetylcysteine 20% 600 MG/3 ML ORAL SYRINGE PO SCH ×2 (08:54→21:14)
[2017-07-11] MEDS: Metoprolol XL (24 HR) Succ 50 MG TAB.ER.24H PO SCH (08:55)
[2017-07-11] MEDS: Magnesium Oxide 400 MG TABLET PO SCH ×3 (08:55→21:15)
[2017-07-11] MEDS: Furosemide 40 MG/4 ML VIAL IVP SCH ×2 (09:03→15:45)
[2017-07-11] MEDS: Magnesium Sulfate 2 GM in D5% in Water 100 ML IVPB SCH ×2 (10:21→12:59)
[2017-07-11 11:07] LABS: Bilirubin,Urine Negative (Negative); Blood,Urine Negative (Negative); Clarity,Urine Clear (Clear); Color,Urine Yellow (Yellow); Glucose,Urine (UA) Normal (Normal); Ketones,Urine Negative (Negative); Leukocyte Esterase,Urine Negative (Negative); Nitrite,Urine Negative (Negative); Protein,Urine Trace mg/dL (Neg-Trace); Specific Gravity,Urine 1.017 (1.010-1.025); Urobilinogen,Urine Normal (Normal)
[2017-07-11 11:10] LABS: Bacteria,Urine None Seen per hpf (None-Few); Hyaline Casts,Urine None Seen per lpf (None-Few); RBC,Urine 0-3 per hpf (0-3); Squamous Epithelial Cell,Urine None Seen per lpf (None-Few); WBC,Urine 0-3 per hpf (0-3)
--- NOTE | 2017-07-11 15:31 | Internal Med Progress Note ---
Date of Encounter: 07/11/17 Time of Encounter: 15:21 - Assessment and plan (1) Acute respiratory distress Current Visit: Yes Status: Acute Assessment and plan: Likely secondary to CHF decompensation last 2D echo from February 2017 reported LVEF Of 60% with mild aortic regurgitation , moderate to severe mitral stenosis will repeat 2D echo (awaiting report) pt also reports of not taking his lasix dose as directed O2 supplementation (reports of wearing O2 as needed at home) continue IV lasix monitor I/Os, daily weights fluid restriction diet (1.5L/day) will consider cardiology evaluation as per the echo report Bipap support as needed (2) Acute exacerbation of CHF (congestive heart failure) Current Visit: Yes Status: Acute Assessment and plan: as listed above Qualifiers: Congestive heart failure type: unspecified congestive heart failure type Qualified Code(s): I50.9 - Heart failure, unspecified (3) Anemia Current Visit: Yes Status: Acute Assessment and plan: H&H low but acceptable reported to have positive guaiac test in the ER will obtain stool occult iron studies consistent with chronic disease vitamin b12 and folate within normal limits Pt had a positive guaic in the ER, however he reports history of hemorrhoids and underwent EGD on 06/10/17 which was negative for any acute bleed, it showed Diverticulosis in the sigmoid colon 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, splenomegaly) will continue to closely monitor (5) Obstructive sleep apnea Current Visit: Yes Status: Chronic Assessment and plan: pt reports of wearing CPAP at bedtime, will continue (6) Hypothyroidism Current Visit: Yes Status: Chronic Assessment and plan: continue levothyroxine Qualifiers: Hypothyroidism type: unspecified Qualified Code(s): E03.9 - Hypothyroidism , unspecified (7) CAD (coronary artery disease) Current Visit: No Status: Chronic Assessment and plan: no acute signs of angina present continue Statin, BB therapy Qualifiers: Coronary Disease-Associated Artery/Lesion type: [place] artery [place] vs. transplanted heart: [place] heart Associated angina: angina presence unspecified Qualified Code(s): I25.10 - Atherosclerotic heart disease of [place] coronary artery without angina pectoris (8) CKD (chronic kidney disease) stage 3, GFR 30-59 ml/min Current Visit: No Status: Chronic Assessment and plan: renal function at baseline, however pt received contrast study in the ER will continue to hold lisinopril at this time and continue mucomyst unable to give IV fluids given volume overload status (9) DVT prophylaxis Current Visit: No Status: Acute Assessment and plan: SCD (10) Mantle cell lymphoma Current Visit: No Status: Chronic Assessment and plan: 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 Adler pt's generalized weakness could be secondary to his underlying malignancy Qualifiers: Lymphoma site: multiple regions Qualified Code(s): C83.18 - Mantle cell lymphoma, lymph nodes of multiple sites (11) Valvular disease Current Visit: No Status: Chronic Assessment and plan: history of moderate to severe mitral stenosis will repeat 2D echo and obtain cardiology evaluation if needed (12) Electrolyte abnormality Current Visit: Yes Status: Acute Assessment and plan: Hypokalemia and Hypomagnesemia K and Mg supplemented will continue to monitor electrolytes and replace as needed - Subjective Interval history: Patient seen and examined with family present at bedside. Reports of feeling better compared to previous day. States he did not have his home cpap machine last night and he is not comfortable with the mask provided by the hospital CPAP machine so he had difficult night, however he has been using the CPAP during the day and reports of feeling better - Constitutional Vitals: Temp Pulse Resp BP Pulse Ox 97.7 F 99 15 115/74 95 07/11/17 11:58 07/11/17 11:58 07/11/17 11:58 07/11/17 11:58 07/11/17 11:58 General appearance: Present: cooperative, A&O X 3, pleasant, no acute distress, obese, answers questions appropriately - Head Head exam: Present: atraumatic, normocephalic - Eye Eye exam: Present: conjuntiva pink, sclera anicteric - Respiratory Respiratory exam: Present: decreased breath sounds. Absent: respiratory distress, wheezes (equal air entry bilaterally ) - Cardiovascular Cardiovascular exam: Present: clicks, RRR, +S1, +S2. Absent: gallop, rubs - GI/Abdominal GI/Abdominal exam: Present: normal bowel sounds, soft, no peritoneal signs. Absent: distended, tenderness - Extremities Exam Extremities exam: Present: pedal edema (pitting edema ), warm, radial pulses palpable and symmetrical. Absent: calf tenderness - Neurological Exam Neurological exam: Present: alert, oriented X3 - Psychiatric Psychiatric exam: Present: normal affect, normal mood Internal Medicine: Result - Labs CBC & Chem 7: 07/11/17 03:35 07/11/17 03:35 Labs: Short CBC 07/11/17 Range/Units 03:35 WBC 9.5 (4.3-11.1) K/mcL Hgb 9.9 L (12.9-16.9) g/dL Hct 29.1 L (37.5-50.1) % Plt Count 114 L (140-400) K/mcL Neutrophils # 1.3 L (1.6-8.9) K/mcL BMP 07/11/17 03:35 Sodium 139 Potassium 3.4 L Chloride 103 Carbon Dioxide 26 BUN 19 Creatinine 1.32 H Glucose 103 H Calcium 8.5 L Urine 07/11/17 Range/Units 10:22 Urine Color Yellow (Yellow) Urine Clarity Clear (Clear) Urine pH 7.0 (5.0-8.0) pH Units Ur Specific [place] 1.017 (1.010-1.025) Urine Protein Trace (Neg-Trace) mg/dL Urine Glucose (UA) Normal (Normal) mg/dL - ABG Interpretation ABG results: PT/INR, D-dimer D-Dimer 1324 ng/mLFEU (0-500) H 07/10/17 10:53 Consult Discharge Plan - Plan Referrals: Yun Novak MD [Primary Care Provider] -
[2017-07-11] MEDS: Acetaminophen 325 MG TABLET PO PRN (15:45)
[2017-07-12 06:35] LABS: Hematocrit 32.2 % (37.5-50.1); Hemoglobin 10.7 g/dL (12.9-16.9); Mean Corpuscular HGB Conc 33.2 g/dL (31.6-35.5); Mean Corpuscular Hemoglobin 29.7 pg (28.0-33.3); Mean Corpuscular Volume 89.4 fL (83.0-100.0); Mean Platelet Volume 9.8 fL (9.4-12.4); Platelet Count 147 K/mcL (140-400); Red Cell Distribution Width 19.2 % (11.5-14.5); Segmented Neutrophils % 20.7 %
[2017-07-12 06:36] LABS: Basophils # 0.1 K/mcL (0.0-0.2); Basophils % 0.5 %; Eosinophils # 0.5 K/mcL (0.0-0.6); Eosinophils % 5.5 %; Immature Granulocytes % 0.4 % (0-4); Lymphocytes % 64.7 %; Monocytes # 0.8 K/mcL (0.0-1.3); Monocytes % 8.2 %; Neutrophils # 1.9 K/mcL (1.6-8.9)
[2017-07-12 06:40] LABS: BUN/Creatinine Ratio 15 (6-26); Blood Urea Nitrogen 21 mg/dL (8-26); Calcium 9.3 mg/dL (8.6-10.8); Carbon Dioxide 27 mEq/L (19-29); Chloride 103 mEq/L (98-109); Glucose 126 mg/dL (70-99); Magnesium 1.9 mg/dL (1.6-2.6); Osmolality,Calculated 293 (280-300); Phosphorous 2.7 mg/dL (2.3-4.7); Potassium 3.8 mEq/L (3.5-4.5); Sodium 139 mEq/L (136-145); eGFR For African Americans > 60 (> 60); eGFR For Non-African Americans 51 (> 60)
[2017-07-12] MEDS: *HR* Acetylcysteine 20% 600 MG/3 ML ORAL SYRINGE PO SCH (10:07)
[2017-07-12] MEDS: Magnesium Oxide 400 MG TABLET PO SCH ×3 (10:07→22:15)
[2017-07-12] MEDS: Furosemide 40 MG/4 ML VIAL IVP SCH ×2 (10:08→18:32)
[2017-07-12] MEDS: Metoprolol XL (24 HR) Succ 50 MG TAB.ER.24H PO SCH (10:08)
--- NOTE | 2017-07-12 10:36 | Cardiology Consult Note ---
Date of Encounter: 07/12/17 Time of Encounter: 10:34 Assessment and Plan (1) Acute exacerbation of CHF (congestive heart failure) Current Visit: Yes Status: Acute Multifactorial but in part due to significant mitral stenosis S/P surgery. Unchanged form previous evaluation, recommendations from [facility] were for improved heart rate control with goal heart rate less that 90. Already on significant BBlocker dose. Will add low dose cardizem. Agree with continued diuresis. Qualifiers: Congestive heart failure type: unspecified congestive heart failure type Qualified Code(s): I50.9 - Heart failure, unspecified Discussion w patient/family: The assessment and plan as outlined above was discussed with the patient and/or family members who expressed understanding and agreement. All questions were answered. Thank you for involving us in the care of your patient. Please call with any questions. History of Present Illness Consult date: 07/12/17 Requesting physician: Lexi Jules Consult reason: Abnormal echo Chief complaint: SOB History of present illness: Mr. Montiel is a 72 year old male with history of CAD, MV clipping and lymphoma currently undergoing chemotherapy. He presented with SOB and findings c/w CHF. Repeat echo showed evidence of mitral stenosis, pulm HTN but preserved LV function. Past Med Surg Social Fam HX - Past Medical History Medical history: cancer, CHF, diabetes, GERD, hepatitis, hypertension, migraine , renal disease, thyroid disease, valvular heart disease, other Psychiatric history: anxiety, depression - Past Surgical History Surgical History: angioplasty/stent, knee replacement, orthopedic, other, other - Social History Smoking Status: Never smoker Smokeless Tobacco Status: No Alcohol use: none Drug use: none - Family History Father Living Status: Hx Family Cancer: Yes Mother Adopted: No Family Member Ethnicity: Non- Living Status: Hx Family Cardiac Disorders: Yes Hx Family Respiratory Disorders: No Hx Family Cancer: No Hx Family GI Disorders: No Hx Family Endocrine Disorder: No Hx Family Neuromuscular Disorders: No Hx Family Neurologic Disorders: No Hx Family HEENT Disorders: No Hx Family Autoimmune Disorders: No Medications and Allergies Levothyroxine Sodium [Synthroid] 137 mcg PO QAM 07/31/15 [History] Magnesium Oxide [Mag-Ox] 400 mg PO TID 07/31/15 [History] Solifenacin Succinate [Vesicare] 10 mg PO QAM 07/31/15 [History] Tamsulosin [Flomax] 0.4 mg PO DAILY 07/31/15 [History] Eletriptan HBr [Relpax] 20 mg PO DAILY PRN 03/18/16 [History] Furosemide [Lasix] 40 mg PO DAILY 03/18/16 [History] Allopurinol [Zyloprim 300 MG] 300 mg PO DAILY 03/14/17 [History] Atorvastatin [Lipitor] 40 mg PO DAILY 03/14/17 [History] Omeprazole [PriLOSEC] 40 mg PO DAILY 03/14/17 [History] Metoprolol XL (24 HR) Succ [Toprol Xl] 150 mg PO QAM #90 tab.er.24h 03/24/17 [Rx ] Lidocaine/Prilocaine [Emla] 1 appl TP AD #30 gm 05/01/17 [Rx] Lisinopril [Lisinopril] 2.5 mg PO DAILY 07/10/17 [History] 3 Allergy/AdvReac Type Severity Reaction Status Date / Time Oxycodone AdvReac Mild BLE Verified 06/10/17 08:57 RASH/EFFECTED AMBULATION All Systems Review: A 10-system review of systems was performed and is negative for pertinent findings except as documented above in the HPI. Physical Examination Vital Signs, Last 4 Hours Temp Pulse Resp BP Pulse Ox 07/12/17 08:50 98.3 F 95 17 133/81 96 General: Conversant, No Apparent Distress HEENT: Atraumatic, Normocephaly, Mucus Membranes Moist Neck: No JVD, Normal carotid pulses Cardiac: Other (Systolic murmur at LUSB, no diatolic murmur) Lungs: Other (scatttered ronchi) Neuro: Alert and responsive, No focal deficits noted Abdomen: Soft, Non-Tender Musculoskeletal: No Chest Wall Tenderness Results 07/12/17 05:10 07/12/17 05:10 Lab Results 07/12/17 07/12/17 05:10 05:10 WBC 9.3 Hgb 10.7 L Hct 32.2 L Plt Count 147 Sodium 139 Potassium 3.8 Chloride 103 Carbon Dioxide 27 BUN 21 Creatinine 1.36 H Glucose 126 H Calcium 9.3 Magnesium 1.9 - EKG Interpretation EKG results cardiology: other (sinus tachycardia) Consult Discharge Plan - Plan Referrals: Yun Novak MD [Primary Care Provider] -
--- NOTE | 2017-07-12 13:48 | Internal Med Progress Note ---
Date of Encounter: 07/12/17 Time of Encounter: 13:25 - Assessment and plan (1) Acute respiratory distress Current Visit: Yes Status: Acute Assessment and plan: Likely secondary to CHF decompensation last 2D echo from February 2017 reported LVEF Of 60% with mild aortic regurgitation , moderate to severe mitral stenosis will repeat 2D echo noted and cardiology evaluation appreciated pt also reports of not taking his lasix dose as directed O2 supplementation (reports of wearing O2 as needed at home) will switch to PO lasix in am monitor I/Os, daily weights fluid restriction diet (1.5L/day) Bipap support as needed (2) Acute exacerbation of CHF (congestive heart failure) Current Visit: Yes Status: Acute Assessment and plan: as listed above pt noted to be tachycardic Cardizem 30mg PO q6h added by cardiology will continue to closely monitor goal HR<90 Qualifiers: Congestive heart failure type: unspecified congestive heart failure type Qualified Code(s): I50.9 - Heart failure, unspecified (3) Anemia Current Visit: Yes Status: Acute Assessment and plan: H&H low but acceptable reported to have positive guaiac test in the ER will obtain stool occult iron studies consistent with chronic disease vitamin b12 and folate within normal limits Pt had a positive guaic in the ER, however he reports history of hemorrhoids and underwent EGD on 06/10/17 which was negative for any acute bleed, it showed Diverticulosis in the sigmoid colon 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, splenomegaly) will continue to closely monitor (5) Obstructive sleep apnea Current Visit: Yes Status: Chronic Assessment and plan: pt reports of wearing CPAP at bedtime, will continue (6) Hypothyroidism Current Visit: Yes Status: Chronic Assessment and plan: continue levothyroxine Qualifiers: Hypothyroidism type: unspecified Qualified Code(s): E03.9 - Hypothyroidism , unspecified (7) CAD (coronary artery disease) Current Visit: No Status: Chronic Assessment and plan: no acute signs of angina present continue Statin, BB therapy Qualifiers: Coronary Disease-Associated Artery/Lesion type: [place] artery [place] vs. 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 Adler pt's generalized weakness could be secondary to his underlying malignancy will obtain Physical therapy evaluation Qualifiers: Lymphoma site: multiple regions Qualified Code(s): C83.18 - Mantle cell lymphoma, lymph nodes of multiple sites (11) Valvular disease Current Visit: No Status: Chronic Assessment and plan: history of moderate to severe mitral stenosis cardiology evaluation appreciated (12) Electrolyte abnormality Current Visit: Yes Status: Acute Assessment and plan: Hypomagnesemia Mg supplemented will continue to monitor electrolytes and replace as needed - Subjective Interval history: Patient seen and examined with family present at bedside. Reports of feeling better compared to previous day. Currently saturating well on nasal cannula. No overnight events reported Pt encouraged to get out bed to chair and increase activity as tolerated will obtain PT evaluation - Constitutional Vitals: Temp Pulse Resp BP Pulse Ox 98.6 F 98 18 118/78 95 07/12/17 12:05 07/12/17 12:05 07/12/17 12:05 07/12/17 12:05 07/12/17 12:05 General appearance: Present: cooperative, A&O X 3, pleasant, no acute distress, obese, answers questions appropriately - Head Head exam: Present: atraumatic, normocephalic - Eye Eye exam: Present: conjuntiva pink, sclera anicteric - Cardiovascular Cardiovascular exam: Present: clicks, +S1, +S2, tachycardia. Absent: diastolic murmur, gallop, rubs, systolic murmur - GI/Abdominal GI/Abdominal exam: Present: normal bowel sounds, soft, no peritoneal signs. Absent: distended, tenderness - Extremities Exam Extremities exam: Present: warm, radial pulses palpable and symmetrical. Absent : calf tenderness, pedal edema - Neurological Exam Neurological exam: Present: alert, oriented X3 Internal Medicine: Result - Labs CBC & Chem 7: 07/12/17 05:10 07/12/17 05:10 Labs: Short CBC 07/12/17 Range/Units 05:10 WBC 9.3 (4.3-11.1) K/mcL Hgb 10.7 L (12.9-16.9) g/dL Hct 32.2 L (37.5-50.1) % Plt Count 147 (140-400) K/mcL Neutrophils # 1.9 (1.6-8.9) K/mcL BMP 07/12/17 05:10 Sodium 139 Potassium 3.8 Chloride 103 Carbon Dioxide 27 BUN 21 Creatinine 1.36 H Glucose 126 H Calcium 9.3 - ABG Interpretation ABG results: PT/INR, D-dimer D-Dimer 1324 ng/mLFEU (0-500) H 07/10/17 10:53 Consult Discharge Plan - Plan Referrals: Yun Novak MD [Primary Care Provider] -
[2017-07-12] MEDS: Acetaminophen 325 MG TABLET PO PRN (18:32)
[2017-07-13 06:14] LABS: Basophils % 0.5 %; Eosinophils # 0.9 K/mcL (0.0-0.6); Eosinophils % 11.1 %; Hematocrit 31.9 % (37.5-50.1); Hemoglobin 10.6 g/dL (12.9-16.9); Immature Granulocytes % 0.6 % (0-4); Lymphocytes # 3.9 K/mcL (0.6-4.6); Lymphocytes % 49.7 %; Mean Corpuscular HGB Conc 33.2 g/dL (31.6-35.5); Mean Corpuscular Hemoglobin 29.6 pg (28.0-33.3); Mean Corpuscular Volume 89.1 fL (83.0-100.0); Monocytes # 0.8 K/mcL (0.0-1.3); Monocytes % 9.7 %; Neutrophils # 2.2 K/mcL (1.6-8.9); Platelet Count 146 K/mcL (140-400); Red Blood Count 3.58 M/mcL (4.19-5.50); Red Cell Distribution Width 19.1 % (11.5-14.5); Segmented Neutrophils % 28.4 %
[2017-07-13 06:17] LABS: BUN/Creatinine Ratio 17 (6-26); Blood Urea Nitrogen 24 mg/dL (8-26); Calcium 9.3 mg/dL (8.6-10.8); Carbon Dioxide 28 mEq/L (19-29); Chloride 103 mEq/L (98-109); Glucose 120 mg/dL (70-99); Magnesium 1.4 mg/dL (1.6-2.6); Osmolality,Calculated 297 (280-300); Phosphorous 2.7 mg/dL (2.3-4.7); Potassium 3.6 mEq/L (3.5-4.5); Sodium 141 mEq/L (136-145); eGFR For African Americans > 60 (> 60); eGFR For Non-African Americans 51 (> 60)
[2017-07-13] MEDS: Magnesium Oxide 400 MG TABLET PO SCH ×3 (09:03→21:28)
[2017-07-13] MEDS: Metoprolol XL (24 HR) Succ 50 MG TAB.ER.24H PO SCH (09:03)
[2017-07-13] MEDS: Furosemide 40 MG TABLET PO SCH ×2 (09:08→18:06)
[2017-07-13] MEDS ORDERED: Magnesium Sulfate 2 GM in D5% in Water 100 ML IVPB ONE (10:16)
--- NOTE | 2017-07-13 13:38 | Internal Med Progress Note ---
Date of Encounter: 07/13/17 Time of Encounter: 13:36 - Assessment and plan (1) Acute respiratory distress Current Visit: Yes Status: Acute Assessment and plan: Likely secondary to CHF decompensation last 2D echo from February 2017 reported LVEF Of 60% with mild aortic regurgitation , moderate to severe mitral stenosis repeat 2D echo noted and cardiology evaluation appreciated pt also reports of not taking his lasix dose as directed O2 supplementation (reports of wearing O2 as needed at home) started Lasix 40mg PO BID monitor I/Os, daily weights fluid restriction diet (1.5L/day) Bipap support as needed (2) Acute exacerbation of CHF (congestive heart failure) Current Visit: Yes Status: Acute Assessment and plan: as listed above HR better controlled with Cardizem 30mg PO q6h added by cardiology awaiting cardiology follow up to transition to Cardizem ER will continue to closely monitor goal HR<90 Qualifiers: Congestive heart failure type: unspecified congestive heart failure type Qualified Code(s): I50.9 - Heart failure, unspecified (3) Anemia Current Visit: Yes Status: Acute Assessment and plan: H&H low but acceptable reported to have positive guaiac test in the ER will obtain stool occult iron studies consistent with chronic disease vitamin b12 and folate within normal limits Pt had a positive guaic in the ER, however he reports history of hemorrhoids and underwent EGD on 06/10/17 which was negative for any acute bleed, it showed Diverticulosis in the sigmoid colon pt reports of having small bowel movements but keeps forgetting to collect stool sample, H&H has remained within acceptable range. 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, splenomegaly) will continue to closely monitor (5) Obstructive sleep apnea Current Visit: Yes Status: Chronic Assessment and plan: pt reports of wearing CPAP at bedtime, will continue (6) Hypothyroidism Current Visit: Yes Status: Chronic Assessment and plan: continue levothyroxine Qualifiers: Hypothyroidism type: unspecified Qualified Code(s): E03.9 - Hypothyroidism , unspecified (7) CAD (coronary artery disease) Current Visit: No Status: Chronic Assessment and plan: no acute signs of angina present continue Statin, BB therapy Qualifiers: Coronary Disease-Associated Artery/Lesion type: [place] artery [place] vs. transplanted heart: [place] heart Associated angina: angina presence unspecified Qualified Code(s): I25.10 - Atherosclerotic heart disease of [place] coronary artery without angina pectoris (8) CKD (chronic kidney disease) stage 3, GFR 30-59 ml/min Current Visit: No Status: Chronic Assessment and plan: renal function at baseline continue to monitor (9) DVT prophylaxis Current Visit: No Status: Acute Assessment and plan: SCD (10) Mantle cell lymphoma Current Visit: No Status: Chronic Assessment and plan: 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 Adler pt's generalized weakness could be secondary to his underlying malignancy awaiting Physical therapy evaluation Qualifiers: Lymphoma site: multiple regions Qualified Code(s): C83.18 - Mantle cell lymphoma, lymph nodes of multiple sites (11) Valvular disease Current Visit: No Status: Chronic Assessment and plan: history of moderate to severe mitral stenosis cardiology evaluation appreciated (12) Electrolyte abnormality Current Visit: Yes Status: Acute Assessment and plan: Hypomagnesemia Mg supplemented will continue to monitor electrolytes and replace as needed - Subjective Interval history: Patient seen and examined with family present at bedside. Reports of feeling better compared to previous day. Currently saturating well on nasal cannula. No overnight events reported Noted to have 6lb weight loss however has not been using the urinal to void due to which I/Os have not been accurately recorded. HR better controlled, awaiting cardiology follow up to transition to [facility] ER Awaiting PT consultation - Constitutional Vitals: Temp Pulse Resp BP Pulse Ox 97.9 F 84 18 103/64 93 07/13/17 12:22 07/13/17 12:22 07/13/17 12:22 07/13/17 12:22 07/13/17 12:22 General appearance: Present: cooperative, A&O X 3, pleasant, no acute distress, obese, answers questions appropriately - Head Head exam: Present: atraumatic, normocephalic - Eye Eye exam: Present: conjuntiva pink, sclera anicteric - Respiratory Respiratory exam: Absent: rales, respiratory distress, wheezes - Cardiovascular Cardiovascular exam: Present: clicks, RRR, +S1, +S2 - GI/Abdominal GI/Abdominal exam: Present: normal bowel sounds, soft, no peritoneal signs. Absent: distended, tenderness - Extremities Exam Extremities exam: Present: warm, radial pulses palpable and symmetrical. Absent : calf tenderness, cyanotic, pedal edema - Neurological Exam Neurological exam: Present: alert, oriented X3 - Psychiatric Psychiatric exam: Present: normal affect, normal mood Internal Medicine: Result - Labs CBC & Chem 7: 07/13/17 05:55 07/13/17 05:55 Labs: Short CBC 07/13/17 Range/Units 05:55 WBC 7.9 (4.3-11.1) K/mcL Hgb 10.6 L (12.9-16.9) g/dL Hct 31.9 L (37.5-50.1) % Plt Count 146 (140-400) K/mcL Neutrophils # 2.2 (1.6-8.9) K/mcL BMP 07/13/17 05:55 Sodium 141 Potassium 3.6 Chloride 103 Carbon Dioxide 28 BUN 24 Creatinine 1.38 H Glucose 120 H Calcium 9.3 - ABG Interpretation ABG results: PT/INR, D-dimer D-Dimer 1324 ng/mLFEU (0-500) H 07/10/17 10:53 Consult Discharge Plan - Plan Referrals: Yun Novak MD [Primary Care Provider] -
--- NOTE | 2017-07-13 21:24 | Electrocardiograph Report ---
[facility] Test Date: 2017-07-10 Pat Name: Kraig Montiel Department: 104 Room: 3B65 Gender: M Professor Of Communication: ALICIA : 1945 Requested By: Giovany Mcrae Order Number: [id number] Reading MD: Frankie Turcios MD Measurements Intervals [place] Rate: 85 P: 56 MN: 200 QRS: -21 QRSD: 112 T: 17 QT: 386 QTc: 429 Interpretive Statements SINUS RHYTHM MODERATE INTRAVENTRICULAR CONDUCTION DELAY VOLTAGE CRITERIA FOR LVH Electronically Signed On 07-13-2017 21:23:23 EDT by Frankie Turcios MD
[2017-07-14 07:37] LABS: Basophils # 0.1 K/mcL (0.0-0.2); Basophils % 0.7 %; Eosinophils # 0.8 K/mcL (0.0-0.6); Eosinophils % 9.5 %; Hematocrit 32.2 % (37.5-50.1); Hemoglobin 10.6 g/dL (12.9-16.9); Immature Granulocytes % 0.5 % (0-4); Lymphocytes % 58.5 %; Mean Corpuscular HGB Conc 32.9 g/dL (31.6-35.5); Mean Corpuscular Hemoglobin 29.4 pg (28.0-33.3); Mean Corpuscular Volume 89.4 fL (83.0-100.0); Mean Platelet Volume 9.9 fL (9.4-12.4); Monocytes # 0.9 K/mcL (0.0-1.3); Neutrophils # 1.8 K/mcL (1.6-8.9); Platelet Count 163 K/mcL (140-400); Red Cell Distribution Width 19.2 % (11.5-14.5); Segmented Neutrophils % 20.8 %
[2017-07-14 07:47] LABS: BUN/Creatinine Ratio 20 (6-26); Blood Urea Nitrogen 27 mg/dL (8-26); Calcium 9.5 mg/dL (8.6-10.8); Carbon Dioxide 28 mEq/L (19-29); Chloride 103 mEq/L (98-109); Glucose 118 mg/dL (70-99); Osmolality,Calculated 298 (280-300); Phosphorous 2.6 mg/dL (2.3-4.7); Potassium 4.1 mEq/L (3.5-4.5); eGFR For African Americans > 60 (> 60); eGFR For Non-African Americans 52 (> 60)
[2017-07-14 08:02] LABS: Sodium 141 mEq/L (136-145)
[2017-07-14] MEDS: Metoprolol XL (24 HR) Succ 50 MG TAB.ER.24H PO SCH (08:51)
[2017-07-14] MEDS: Magnesium Oxide 400 MG TABLET PO SCH (08:51)
[2017-07-14] MEDS: Furosemide 40 MG TABLET PO SCH (08:52)
--- NOTE | 2017-07-14 10:55 | Discharge Summary ---
<Natividad Dean - Last Filed: 07/14/17 10:52> Date of Encounter: 07/14/17 Time of Encounter: 10:52 - Discharge Diagnosis (1) Acute respiratory distress Priority: Primary Status: Acute (2) Acute exacerbation of CHF (congestive heart failure) Priority: Secondary Status: Acute Qualifiers: Congestive heart failure type: unspecified congestive heart failure type Qualified Code(s): I50.9 - Heart failure, unspecified (3) Anemia Priority: Secondary Status: Acute Qualifiers: Anemia type: unspecified type Qualified Code(s): D64.9 - Anemia, unspecified (4) Thrombocytopenia Priority: Secondary Status: Chronic (5) Obstructive sleep apnea Priority: Secondary Status: Chronic (6) Hypothyroidism Priority: Secondary Status: Chronic Qualifiers: Hypothyroidism type: unspecified Qualified Code(s): E03.9 - Hypothyroidism , unspecified (7) CAD (coronary artery disease) Priority: Secondary Status: Chronic Qualifiers: Coronary Disease-Associated Artery/Lesion type: [place] artery [place] vs. transplanted heart: [place] heart Associated angina: angina presence unspecified Qualified Code(s): I25.10 - Atherosclerotic heart disease of [place] coronary artery without angina pectoris (8) CKD (chronic kidney disease) stage 3, GFR 30-59 ml/min Priority: Secondary Status: Chronic (9) Mantle cell lymphoma Priority: Secondary Status: Chronic Qualifiers: Lymphoma site: multiple regions Qualified Code(s): C83.18 - Mantle cell lymphoma, lymph nodes of multiple sites (10) Valvular disease Priority: Secondary Status: Chronic (11) Electrolyte abnormality Priority: Secondary Status: Acute (12) DVT prophylaxis Priority: Secondary Status: Acute - Discharge Medications Prescriptions: Aspirin [Lo-Dose Aspirin EC] 81 mg PO DAILY #30 tablet.dr Maddoxtiazeolga CD (24hr) [Cardizem CD] 120 mg PO DAILY #30 cap.er.24h Furosemide [Lasix] 40 mg PO BID #60 tablet Potassium Chloride 20 meq PO DAILY #30 tab.er.prt Home Medications: Levothyroxine Sodium [Synthroid] 137 mcg PO QAM 07/31/15 [History] Magnesium Oxide [Mag-Ox] 400 mg PO TID 07/31/15 [History] Solifenacin Succinate [Vesicare] 10 mg PO QAM 07/31/15 [History] Tamsulosin [Flomax] 0.4 mg PO DAILY 07/31/15 [History] Eletriptan HBr [Relpax] 20 mg PO DAILY PRN 03/18/16 [History] Allopurinol [Zyloprim 300 MG] 300 mg PO DAILY 03/14/17 [History] Atorvastatin [Lipitor] 40 mg PO DAILY 03/14/17 [History] Omeprazole [PriLOSEC] 40 mg PO DAILY 03/14/17 [History] Metoprolol XL (24 HR) Succ [Toprol Xl] 150 mg PO QAM #90 tab.er.24h 03/24/17 [Rx ] Lidocaine/Prilocaine [Emla] 1 appl TP AD #30 gm 05/01/17 [Rx] Lisinopril 2.5 mg PO DAILY 07/10/17 [History] Aspirin [Lo-Dose Aspirin EC] 81 mg PO DAILY #30 tablet.dr 07/14/17 [Rx] Diltiazem CD (24hr) [Cardizem CD] 120 mg PO DAILY #30 cap.er.24h 07/14/17 [Rx] Furosemide [Lasix] 40 mg PO BID #60 tablet 07/14/17 [Rx] Potassium Chloride 20 meq PO DAILY #30 tab.er.prt 07/14/17 [Rx] Allergies/Adverse Reactions: 3 Allergy/AdvReac Type Severity Reaction Status Date / Time Oxycodone AdvReac Mild BLE Verified 06/10/17 08:57 RASH/EFFECTED AMBULATION Date of admission: 07/11/17 15:54 Primary care physician: Yun Novak, Consults: 07/11/17 17:24 Consult to Cardiology [CONS] Routine Comment: Consulting Provider: Cardiology Adrienne Reason for Consult: CHF Call Completed: Yes 07/12/17 13:51 Consult to Physical Therapy [CONS] Routine Comment: Evaluate, develop and implement POC Reason for Consult: evaluate for placement vs home health Discharging clinician: Natividad Dean Anticipated date of discharge: 07/14/17 - Patient Status Disposition: Home, Self-Care Condition: Good Functional capacity at discharge: independent ambulation Overall status at discharge: patient is progressing back to baseline - Discharge Instructions Instructions: Diltiazem (By mouth), Furosemide (By mouth), Aspirin (By mouth), Heart Failure (DC), Acute Respiratory Distress Syndrome (DC), Chronic Hypertension (DC) Follow Up With: Nikia Kurtz CNP [Advanced Practice Nurse] - 07/20/17 2:00 pm Julius Santos MD [Partnered Physician] - 08/24/17 3:15 pm Yosef Nagel CNP [Advanced Practice Nurse] - Fran Adler MD [Partnered Physician] - Additional Instructions: follow up with your primary care provider within one week of discharge. follow up with your training director, pulmonology, and your oncologist. please take new medication cardizem as prescribed. please take your lasix twice a day as prescribed. please take new medication of low dose aspirin and potassium as prescribed. if you develop symptoms of increasing shortness of breath, fever, chills, chest pain please return back to the emergency department immediately. - Diet and Activity Activity: increase activity as tolerated Diet: low fat, low cholesterol, low salt diet Hospital course: Mr. Montiel is a 72 year old male with PMHx of CHF, CAD, CKD HTN, mantle cell lymphoma stage IV on chemotherapy, GREG, history of mitral valve repair. Patient arrived to [facility] on 07/10/17 with chief complaint of increasing shortness of breath and generalized weakness. He was admitted for acute exacerbation of CHF. Chest CTA showed no evidence of pulmonary embolism, mosaic lung attenuation, patchy airspace disease and pulmonary edema, trace right pleural effusion. He as treated with strict I/O, fluid restriction, and IV lasix. Cardiology was consulted for this case since patient has history of mitral valve repair. Cardiology recommendation was for improved heart rate control with goal HR less than 90. He was already on optimal beta dayo therapy at home so he was started on oral cardizem, which was transitioned to long acting cardizem before discharge. patient had echocardiogram done which showed LVEF 60%, normal LV size and systolic function, normal RV size and function, mild aortic regurg, s/ p mitral valve repair with moderate mitral stenosis, mild mitral regurg, severe pulmonary hypertension. Patient's shortness of breath is likely multifactorial in setting of mitral stenosis, pulmonary hypertenion, non compliance with medication (he was taking his lasix once a day instead of twice a day as prescribed). patient was counseled significantly on importance of medication compliance. Patient was transitioned to his regular oral BID dosing of lasix. He was stable throughout the course of his hospital stay and remained stable until discharge. patient does have hx of anemia and his Hg was stable during his hospitalization. Patient did have positive stool guiac in ER, but patient reports he does have history of hemorrhoids. he underwent EGD on 06/10/17 that showed no sign of acute bleed. His H/H will need to be monitored outpatient. Plan: follow up with your primary care provider within one week of discharge. follow up with your training director, pulmonology, and your oncologist. please take new medication cardizem as prescribed. please take your lasix twice a day as prescribed. please take new medication of low dose aspirin and potassium as prescribed. if you develop symptoms of increasing shortness of breath, fever, chills, chest pain please return back to the emergency department immediately. - Time Spent with Patient Total time spent providing and/or coordinating discharge services: Less than 30 minutes - Constitutional Vitals: Temp Pulse Resp BP Pulse Ox 97.9 F 92 17 114/71 94 07/14/17 06:56 07/14/17 06:56 07/14/17 06:56 07/14/17 06:56 07/14/17 09:00 General appearance: Present: cooperative, A&O X 3, pleasant, no acute distress, obese, answers questions appropriately - Head Head exam: Present: atraumatic, normocephalic - Neck Neck exam general surgery: Present: supple, trachea midline - Respiratory Additional comments: mild rales present on bilateral lower lobes. - Cardiovascular Cardiovascular exam: Present: RRR, +S1, +S2 - GI/Abdominal GI/Abdominal exam: Present: normal bowel sounds, soft. Absent: distended, tenderness - Extremities Exam Extremities exam: Absent: cyanotic, pedal edema - Neurological Exam Neurological exam: Present: alert, oriented X3, no focal deficits - Psychiatric Psychiatric exam: Present: normal affect, normal mood - Skin Skin exam: Present: intact <Varun Flores H - Last Filed: 07/14/17 14:31> Date of Encounter: 07/14/17 Date of admission: 07/11/17 15:54 Primary care physician: Yun Novak, Consults: 07/11/17 17:24 Consult to Cardiology [CONS] Routine Comment: Consulting Provider: Cardiology Adrienne Reason for Consult: CHF Call Completed: Yes 07/12/17 13:51 Consult to Physical Therapy [CONS] Routine Comment: Evaluate, develop and implement POC Reason for Consult: evaluate for placement vs home health Hospital course: Mr. Montiel is a 72 year old male - Time Spent with Patient Total time spent providing and/or coordinating discharge services: - Constitutional Vitals: Temp Pulse Resp BP Pulse Ox 98.3 F 81 16 104/67 95 07/14/17 10:59 07/14/17 10:59 07/14/17 10:59 07/14/17 10:59 07/14/17 10:59 - Attending Attestation Acute diastolic CHF exacerbation, also related to moderate mitral stenosis I examined this patient and my medical decision-making was reviewed with the Resident Physician. I agree with the documented findings, disposition and treatment plan as described except to the extent set forth below.
[2017-07-14 11:04] VITALS: BP 104/67
[2017-07-14] MEDS ORDERED: FLUARIX QUAD 2017-18 36MOS UP/PF 0.5 ML SYRINGE IM ONE (12:57)
== END 2017-07-14 14:21 | disposition home or self-care (01) | DRG 291 ==
LOC: 3BNU 10:03 → EMEROO 10:03 → 3BNU 16:12 → SUATTDRO 07-11 15:54
PROVIDERS: ADMIT Internal Medicine; ATTEND Internal Medicine

== ENCOUNTER 2020-10-08 15:23 | Inpatient (IN) ==
[2020-10-08] MEDS ORDERED: Vancomycin 1,500 MG/265 ML IV.SOLN IVPB ONE (15:44)
[2020-10-08] MEDS ORDERED: Cefepime HCl 1,000 MG in 0.9 % Sodium Chloride Mini Bag 100 ML IVPB STA (15:44)
[2020-10-08 16:18] LABS: Basophils % 0.2 %; Hemoglobin 13.8 g/dL (12.9-16.9); Nucleated Red Blood Cells 0.7 /100 WBC (0); Red Cell Distribution Width 18.6 % (11.5-14.5)
[2020-10-08 16:20] LABS: Hematocrit 43.7 % (37.5-50.1); Immature Granulocytes % 1.6 % (0-4); Immature Platelets 14.1 % (1.1-6.1); Lymphocytes # 0.9 K/mcL (0.6-4.6); Lymphocytes % 8.9 %; Mean Corpuscular HGB Conc 31.6 g/dL (31.6-35.5); Mean Corpuscular Hemoglobin 29.9 pg (28.0-33.3); Mean Corpuscular Volume 94.8 fL (83.0-100.0); Monocytes # 0.5 K/mcL (0.0-1.3); Monocytes % 5.1 %; Red Blood Count 4.61 M/mcL (4.19-5.50); Segmented Neutrophils % 84.2 %; White Blood Count 9.5 K/mcL (4.3-11.1)
[2020-10-08 16:22] LABS: Platelet Count 84 K/mcL (140-400)
[2020-10-08 16:23] LABS: VBG HCO3 28 mEq/L (21-27); VBG PCO2 48 mmHg (41-51); VBG PH 7.38 pH Units (7.32-7.42); VBG PO2 26 mmHg (25-50)
[2020-10-08 16:26] LABS: INR 1.5; Prothrombin Time 17.2 Seconds (9.4-12.1)
[2020-10-08 16:38] LABS: Troponin I 0.04 ng/mL (< 0.04)
[2020-10-08 16:49] LABS: Alanine Aminotransferase 32 Units/L (7-52); Albumin 3.3 g/dL (3.5-5.7); Alkaline Phosphatase 133 Units/L (34-104); Aspartate Amino Transferase 41 Units/L (13-39); BUN/Creatinine Ratio 40 (6-26); Bilirubin,Direct 0.5 mg/dL (0.0-0.2); Bilirubin,Indirect 1.2 mg/dL (0.0-1.0); Bilirubin,Total 1.7 mg/dL (0.3-1.0); Blood Urea Nitrogen 54 mg/dL (8-23); Calcium 9.8 mg/dL (8.6-10.3); Carbon Dioxide 24 mEq/L (23-29); Chloride 107 mEq/L (98-107); Globulin 3.2 g/dL (2.4-3.5); Glucose 142 mg/dL (70-105); Osmolality,Calculated 315 (280-300); Potassium 4.4 mEq/L (3.5-5.1); Sodium 144 mEq/L (136-145); Total Protein 6.5 g/dL (6.4-8.9); eGFR For African Americans > 60 (> 60); eGFR For Non-African Americans 52 (> 60)
[2020-10-08] MEDS ORDERED: Furosemide 40 MG/4 ML VIAL IVP ONE ×2 (18:02→18:49)
[2020-10-08] MEDS ORDERED: Ondansetron 4 MG/2 ML VIAL IVP PRN (18:02)
[2020-10-08] MEDS ORDERED: Acetaminophen 325 MG TABLET PO PRN (18:02)
[2020-10-08] MEDS: Albuterol 2.5 MG/3 ML NEBULIZER IH SCH ×2 (19:37→23:22)
[2020-10-08 19:39] LABS: Adenovirus Not Detected (Not Detect); Coronavirus 229E Not Detected (Not Detect); Coronavirus HKU1 Not Detected (Not Detect); Coronavirus NL63 Not Detected (Not Detect); Coronavirus OC43 Not Detected (Not Detect)
[2020-10-08 19:42] LABS: Bordetella Pertussis Not Detected (Not Detect); Chlamydophila pneumoniae Not Detected (Not Detect); Human Metapneumovirus Not Detected (Not Detect); Human Rhinovirus/Enterovirus Not Detected (Not Detect); Influenza A Subtype 2009 H1 Not Detected (Not Detect); Influenza B Not Detected (Not Detect); Mycoplasma pneumoniae Not Detected (Not Detect); Parainfluenza Virus 1 Not Detected (Not Detect); Parainfluenza Virus 2 Not Detected (Not Detect); Parainfluenza Virus 3 Not Detected (Not Detect); Parainfluenza Virus 4 Not Detected (Not Detect); Respiratory Syncytial Virus Not Detected (Not Detect); SARS-CoV-2 DETECTED (Not Detect)
[2020-10-09] MEDS ORDERED: Cefepime HCl 2,000 MG in 0.9 % Sodium Chloride Mini Bag 100 ML IVPB SCH
[2020-10-09 05:03] LABS: Mean Corpuscular Volume 94.7 fL (83.0-100.0); Red Cell Distribution Width 18.5 % (11.5-14.5)
[2020-10-09 05:05] LABS: Hematocrit 39.4 % (37.5-50.1); Hemoglobin 12.4 g/dL (12.9-16.9); Immature Platelets 11.1 % (1.1-6.1); Mean Corpuscular HGB Conc 31.5 g/dL (31.6-35.5); Mean Corpuscular Hemoglobin 29.8 pg (28.0-33.3); Red Blood Count 4.16 M/mcL (4.19-5.50); White Blood Count 6.3 K/mcL (4.3-11.1)
[2020-10-09 05:07] LABS: INR 1.6; Platelet Count 54 K/mcL (140-400); Prothrombin Time 18.4 Seconds (9.4-12.1)
[2020-10-09 05:25] LABS: Calcium 9.4 mg/dL (8.6-10.3); Magnesium 2.6 mg/dL (1.6-2.6); Potassium 4.8 mEq/L (3.5-5.1)
[2020-10-09 05:49] LABS: Troponin I 0.04 ng/mL (< 0.04)
[2020-10-09] MEDS ORDERED: *HR* Enoxaparin 30 MG/0.3 ML SYRINGE SQ SCH (06:00)
[2020-10-09] MEDS: Aspirin Enteric Coated 81 MG Tablet PO SCH (08:35)
[2020-10-09] MEDS: allopurinoL 100 MG TABLET PO SCH (08:35)
[2020-10-09] MEDS ORDERED: Isovue-370 500 ML BOTTLE IVP ONE (13:59)
[2020-10-09] MEDS ORDERED: 0.9 % Sodium Chloride 500 ML IVC ONE ×2 (14:00→14:28)
[2020-10-09] MEDS ORDERED: Dexamethasone Sodium Phos/PF 10 MG/ML VIAL IVP ONE (14:04)
[2020-10-09] MEDS: Piperacillin/Tazobactam 3.375 GM in 0.9 % Sodium Chloride Mini Bag 100 ML IVPB SCH (17:19)
[2020-10-09] MEDS: Insulin LISPRO 300 UNITS/3 ML VIAL SUBQ SCH (17:19)
[2020-10-09] MEDS ORDERED: ACALABRUTINIB 100 MG PO SCH (19:30)
[2020-10-09] MEDS ORDERED: Insulin DETEMIR 100 UNIT/ML X5UNITS SUBQ SCH (21:00)
[2020-10-09] MEDS: ACALABRUTINIB 100 MG PO SCH (21:23)
[2020-10-10] MEDS: Piperacillin/Tazobactam 3.375 GM in 0.9 % Sodium Chloride Mini Bag 100 ML IVPB SCH ×3 (02:54→19:01)
[2020-10-10 05:01] LABS: Hemoglobin 12.6 g/dL (12.9-16.9); Immature Platelets 10.6 % (1.1-6.1); Mean Corpuscular HGB Conc 32.3 g/dL (31.6-35.5); Mean Corpuscular Hemoglobin 30.7 pg (28.0-33.3); Mean Corpuscular Volume 95.1 fL (83.0-100.0); Red Cell Distribution Width 18.6 % (11.5-14.5)
[2020-10-10 05:08] LABS: Platelet Count 55 K/mcL (140-400)
[2020-10-10 05:28] LABS: BUN/Creatinine Ratio 49 (6-26); Blood Urea Nitrogen 60 mg/dL (8-23); Calcium 8.7 mg/dL (8.6-10.3); Carbon Dioxide 20 mEq/L (23-29); Chloride 112 mEq/L (98-107); Glucose 323 mg/dL (70-105); Osmolality,Calculated 327 (280-300); Potassium 4.5 mEq/L (3.5-5.1); Sodium 144 mEq/L (136-145); eGFR For African Americans > 60 (> 60); eGFR For Non-African Americans 58 (> 60)
[2020-10-10] MEDS: *HR* Enoxaparin 40 MG/0.4 ML SYRINGE SQ SCH (05:56)
[2020-10-10] MEDS: ACALABRUTINIB 100 MG PO SCH (05:56)
[2020-10-10] MEDS: allopurinoL 100 MG TABLET PO SCH (08:55)
[2020-10-10] MEDS: Aspirin Enteric Coated 81 MG Tablet PO SCH (08:55)
[2020-10-10] MEDS: Insulin LISPRO 300 UNITS/3 ML VIAL SUBQ SCH ×3 (08:56→17:08)
[2020-10-10] MEDS: Dexamethasone Sodium Phos/PF 10 MG/ML VIAL IVP SCH (08:56)
[2020-10-10] MEDS: Insulin DETEMIR 100 UNIT/ML X5UNITS SUBQ SCH ×2 (12:47→21:05)
[2020-10-10] MEDS: Doxycycline 100 MG in 0.9 % Sodium Chloride Mini Bag 100 ML IVPB SCH (17:11)
[2020-10-10] MEDS: Dexmedetomidine HCl 400 MCG/100 ML MLS IVC SCH (23:00)
[2020-10-11] MEDS: Piperacillin/Tazobactam 3.375 GM in 0.9 % Sodium Chloride Mini Bag 100 ML IVPB SCH ×3 (03:28→18:28)
[2020-10-11] MEDS: *HR* Enoxaparin 40 MG/0.4 ML SYRINGE SQ SCH (04:59)
[2020-10-11] MEDS: Doxycycline 100 MG in 0.9 % Sodium Chloride Mini Bag 100 ML IVPB SCH ×2 (04:59→17:41)
[2020-10-11] MEDS: Dexmedetomidine HCl 400 MCG/100 ML MLS IVC SCH (05:35)
[2020-10-11 05:40] LABS: Hematocrit 38.4 % (37.5-50.1); Hemoglobin 12.3 g/dL (12.9-16.9); Immature Platelets 14.4 % (1.1-6.1); Mean Corpuscular Hemoglobin 30.3 pg (28.0-33.3); Mean Corpuscular Volume 94.6 fL (83.0-100.0); Red Blood Count 4.06 M/mcL (4.19-5.50); Red Cell Distribution Width 18.3 % (11.5-14.5); White Blood Count 5.1 K/mcL (4.3-11.1)
[2020-10-11 05:44] LABS: Platelet Count 43 K/mcL (140-400)
[2020-10-11 06:05] LABS: Calcium 8.9 mg/dL (8.6-10.3); Potassium 4.4 mEq/L (3.5-5.1)
[2020-10-11] MEDS: Insulin DETEMIR 100 UNIT/ML X5UNITS SUBQ SCH (08:19)
[2020-10-11] MEDS: Insulin LISPRO 300 UNITS/3 ML VIAL SUBQ SCH ×3 (08:20→17:42)
[2020-10-11] MEDS: Aspirin Enteric Coated 81 MG Tablet PO SCH (08:21)
[2020-10-11] MEDS: allopurinoL 100 MG TABLET PO SCH (08:21)
[2020-10-11] MEDS: Cholecalciferol (D-3) 1,000 UNIT (25MCG) TABLET PO SCH (08:21)
[2020-10-11] MEDS: Dexamethasone Sodium Phos/PF 10 MG/ML VIAL IVP SCH (08:22)
[2020-10-11] MEDS: Budesonide/Formoterol 160/4.5 1 PUFF INH IH SCH ×2 (15:28→20:02)
[2020-10-11 16:24] LABS: VBG HCO3 23 mEq/L (21-27); VBG PCO2 37 mmHg (41-51); VBG PO2 227 mmHg (25-50)
[2020-10-11] MEDS ORDERED: *HR* Dextrose 50 % in Water (Vial) 50 ML VIAL IVP PRN (21:22)
[2020-10-11] MEDS ORDERED: D5% in Water 1,000 ML IVC PRN (21:22)
[2020-10-11] MEDS ORDERED: Dextrose Gel 15 GM/37.5 ML TUBE PO PRN (21:22)
[2020-10-12] MEDS: Insulin DETEMIR 100 UNIT/ML X5UNITS SUBQ SCH ×2 (00:59→08:58)
[2020-10-12] MEDS: Insulin LISPRO 300 UNITS/3 ML VIAL SUBQ SCH ×5 (01:00→21:36)
[2020-10-12] MEDS: Piperacillin/Tazobactam 3.375 GM in 0.9 % Sodium Chloride Mini Bag 100 ML IVPB SCH ×3 (02:44→18:55)
[2020-10-12] MEDS: Doxycycline 100 MG in 0.9 % Sodium Chloride Mini Bag 100 ML IVPB SCH (06:26)
[2020-10-12] MEDS: *HR* Enoxaparin 40 MG/0.4 ML SYRINGE SQ SCH (06:29)
[2020-10-12] MEDS: Dexmedetomidine HCl 400 MCG/100 ML MLS IVC SCH (07:12)
[2020-10-12] MEDS: Budesonide/Formoterol 160/4.5 1 PUFF INH IH SCH ×2 (07:54→20:24)
[2020-10-12 08:05] LABS: Hematocrit 44.3 % (37.5-50.1); Hemoglobin 13.8 g/dL (12.9-16.9); Mean Corpuscular HGB Conc 31.2 g/dL (31.6-35.5); Mean Corpuscular Hemoglobin 29.7 pg (28.0-33.3); Mean Corpuscular Volume 95.3 fL (83.0-100.0); Red Blood Count 4.65 M/mcL (4.19-5.50); Red Cell Distribution Width 18.4 % (11.5-14.5)
[2020-10-12 08:06] LABS: Platelet Count 65 K/mcL (140-400); White Blood Count 9.2 K/mcL (4.3-11.1)
[2020-10-12 08:21] LABS: Albumin 3.1 g/dL (3.5-5.7); Albumin/Globulin Ratio 1.1 (1.1-2.2); Bilirubin,Direct 0.4 mg/dL (0.0-0.2); Bilirubin,Total 1.4 mg/dL (0.3-1.0); Calcium 9.3 mg/dL (8.6-10.3); Globulin 2.7 g/dL (2.4-3.5); Potassium 4.5 mEq/L (3.5-5.1); Total Protein 5.8 g/dL (6.4-8.9)
[2020-10-12] MEDS: allopurinoL 100 MG TABLET PO SCH (08:56)
[2020-10-12] MEDS: Cholecalciferol (D-3) 1,000 UNIT (25MCG) TABLET PO SCH (08:56)
[2020-10-12] MEDS: Dexamethasone Sodium Phos/PF 10 MG/ML VIAL IVP SCH (08:56)
[2020-10-12] MEDS: Aspirin Enteric Coated 81 MG Tablet PO SCH (08:58)
[2020-10-12] MEDS ORDERED: Haloperidol Lactate 5 MG/ML VIAL IVP ONE (10:27)
[2020-10-12] MEDS: D5% in Water 1,000 ML IVC SCH (13:26)
[2020-10-12] MEDS: Doxycycline 100 MG CAPSULE PO SCH (20:57)
[2020-10-13] MEDS: Insulin DETEMIR 100 UNIT/ML X5UNITS SUBQ SCH ×3 (00:33→20:27)
[2020-10-13] MEDS: Piperacillin/Tazobactam 3.375 GM in 0.9 % Sodium Chloride Mini Bag 100 ML IVPB SCH (03:02)
[2020-10-13] MEDS: Dexmedetomidine HCl 400 MCG/100 ML MLS IVC SCH ×2 (04:00→15:53)
[2020-10-13] MEDS: D5% in Water 1,000 ML IVC SCH (04:51)
[2020-10-13] MEDS: *HR* Enoxaparin 40 MG/0.4 ML SYRINGE SQ SCH (05:10)
[2020-10-13 05:56] LABS: Hematocrit 35.3 % (37.5-50.1); Hemoglobin 11.3 g/dL (12.9-16.9); Immature Platelets 15.7 % (1.1-6.1); Mean Corpuscular Volume 93.6 fL (83.0-100.0); Red Blood Count 3.77 M/mcL (4.19-5.50); Red Cell Distribution Width 18.1 % (11.5-14.5); White Blood Count 7.1 K/mcL (4.3-11.1)
[2020-10-13 05:57] LABS: Platelet Count 39 K/mcL (140-400)
[2020-10-13 06:18] LABS: BUN/Creatinine Ratio 53 (6-26); Blood Urea Nitrogen 63 mg/dL (8-23); Calcium 8.4 mg/dL (8.6-10.3); Carbon Dioxide 22 mEq/L (23-29); Chloride 117 mEq/L (98-107); Glucose 140 mg/dL (70-105); Osmolality,Calculated 324 (280-300); Potassium 4.3 mEq/L (3.5-5.1); Sodium 147 mEq/L (136-145); eGFR For African Americans > 60 (> 60); eGFR For Non-African Americans 59 (> 60)
[2020-10-13] MEDS: Budesonide/Formoterol 160/4.5 1 PUFF INH IH SCH ×2 (07:40→20:12)
[2020-10-13] MEDS: Insulin LISPRO 300 UNITS/3 ML VIAL SUBQ SCH ×4 (08:51→20:28)
[2020-10-13] MEDS: Aspirin Enteric Coated 81 MG Tablet PO SCH (09:04)
[2020-10-13] MEDS: Cholecalciferol (D-3) 1,000 UNIT (25MCG) TABLET PO SCH (09:04)
[2020-10-13] MEDS: Doxycycline 100 MG CAPSULE PO SCH ×2 (09:04→20:27)
[2020-10-13] MEDS: Dexamethasone Sodium Phos/PF 10 MG/ML VIAL IVP SCH (09:05)
[2020-10-13] MEDS ORDERED: Furosemide 20 MG/2 ML VIAL IVP SCH (10:30)
[2020-10-13] MEDS ORDERED: D5% in Water 500 ML IVC SCH (12:00)
[2020-10-14 01:23] LABS: Mean Corpuscular Volume 95.4 fL (83.0-100.0)
[2020-10-14 01:25] LABS: Hematocrit 37.7 % (37.5-50.1); Hemoglobin 11.7 g/dL (12.9-16.9); Immature Platelets 14.8 % (1.1-6.1); Mean Corpuscular Hemoglobin 29.6 pg (28.0-33.3); Red Blood Count 3.95 M/mcL (4.19-5.50); Red Cell Distribution Width 18.1 % (11.5-14.5); White Blood Count 8.6 K/mcL (4.3-11.1)
[2020-10-14 01:31] LABS: Platelet Count 44 K/mcL (140-400)
[2020-10-14 01:44] LABS: BUN/Creatinine Ratio 50 (6-26); Blood Urea Nitrogen 52 mg/dL (8-23); Calcium 8.4 mg/dL (8.6-10.3); Carbon Dioxide 24 mEq/L (23-29); Chloride 115 mEq/L (98-107); Glucose 210 mg/dL (70-105); Osmolality,Calculated 320 (280-300); Potassium 4.2 mEq/L (3.5-5.1); Sodium 145 mEq/L (136-145); eGFR For African Americans > 60 (> 60); eGFR For Non-African Americans > 60 (> 60)
[2020-10-14] MEDS: Dexmedetomidine HCl 400 MCG/100 ML MLS IVC SCH (07:55)
[2020-10-14] MEDS: Budesonide/Formoterol 160/4.5 1 PUFF INH IH SCH (07:57)
[2020-10-14] MEDS: Cholecalciferol (D-3) 1,000 UNIT (25MCG) TABLET PO SCH ×2 (08:55→09:49)
[2020-10-14] MEDS: Aspirin Enteric Coated 81 MG Tablet PO SCH ×2 (08:55→09:49)
[2020-10-14] MEDS: *HR* Enoxaparin 40 MG/0.4 ML SYRINGE SQ SCH (08:56)
[2020-10-14] MEDS: Doxycycline 100 MG CAPSULE PO SCH ×2 (08:56→09:49)
[2020-10-14] MEDS: Insulin LISPRO 300 UNITS/3 ML VIAL SUBQ SCH (09:17)
[2020-10-14] MEDS: Insulin DETEMIR 100 UNIT/ML X5UNITS SUBQ SCH (09:18)
[2020-10-14 09:23] VITALS: BP 97/58
[2020-10-14] MEDS ORDERED: Haloperidol Lactate 5 MG/ML VIAL IVP ONE (09:46)
[2020-10-14] MEDS ORDERED: Furosemide 80 MG in 0.9 % Sodium Chloride 50 ML IV ONE (09:47)
[2020-10-14] MEDS ORDERED: *HR* LORazepam 2 MG/ML VIAL ONE ×2 (10:35→11:14)
[2020-10-14] MEDS ORDERED: Morphine Sulfate 2 MG/ML SYRINGE IVP ONE (10:36)
[2020-10-14] MEDS ORDERED: *HR* LORazepam 2 MG/ML VIAL IVP ONE (10:37)
[2020-10-14] MEDS ORDERED: Morphine Sulfate 2 MG/ML SYRINGE IVP PRN (11:09)
[2020-10-14] MEDS ORDERED: *HR* LORazepam 2 MG/ML VIAL IVP PRN (11:09)
[2020-10-14] MEDS ORDERED: Morphine Sulfate Oral CONC 10 MG/0.5 ML ORAL.SYG SL PRN (11:21)
[2020-10-15] MEDS ORDERED: Dexamethasone Sodium Phos/PF 10 MG/ML VIAL IVP SCH (09:00)
== END 2020-10-14 13:05 | disposition expired ==
LOC: 2NENU 15:23 → EMEROOARM 15:23 → SUATTDRO 20:36 → 2NENU 21:50
PROVIDERS: ADMIT Internal Medicine; ATTEND Internal Medicine